=== PATIENT | male | born 1945 | race Caucasian/White ===

== ENCOUNTER 2024-10-16 20:57 | Inpatient (IN) | payer MEDICARE, SELFPAY ==
[2024-10-16] VITALS (9 sets, daily range): BP systolic 116–157; BP diastolic 100–138; PULSE 60–65; RESP 13–23; TEMP 36.9; O2SAT 96–100
--- NOTE | ~2024-10-16 | CT_ITS ---
CT OF right and left lower extremities EXAMINATION: CT LE RT wo con, CT LE LT wo con DATE: 10/16/2024 23:30 (accession [id number]), 10/16/2024 23:31 (accession [id number]) INDICATION: Rule out osteomyelitis. TECHNIQUE: Computed tomography (CT) of the right and left lower extremities was performed without int ravenous contrast. Automated exposure control and iterative reconstruction technique were employed. T he dose-length product was 2718.31 (accession [id number]), 2093.35 (accession [id number]) mGy -cm. COMPARISON: None FINDINGS: Osteopenia. Bilateral sacroiliitis. Bilateral hip osteoarthritis. Scattered pelvic enthesopathy. Mild degenerative changes in the bilateral knees. Moderate degenerative changes in the bilateral ankles, multiple midfoot joints, and the bilateral MTP joints. Plantar and Achilles enthesopathy. Right toes: Skin defect over the right third toe, with apparent exposure of the distal end of the thi rd proximal phalanx, without definite erosion. Left toes: Skin defect over the left second toe, with possible exposure of the distal end of the seco nd proximal phalanx and early erosions suspected on either side of the joint. Left second distal phal anx amputation. Possible exposure of the tip of the left second middle phalanx, without erosion. Skin defect over the PIP joint of the left third toe, with possible bone exposure but no erosion. Possibl e skin defect at the left third DIP joint, with possible bone exposure, and subjacent erosion at the distal aspect of the left third middle phalanx. Atherosclerotic calcifications. Small left and moderate right fat-containing inguinal hernias. Left h ydrocele. Subcutaneous edema extending from the level of mid thigh down to the feet. Dermal thickenin g over the lower leg and dorsal feet. IMPRESSION: Skin defect over the right second toe, with possible bone exposure, without focal erosion. Skin defect over the left second PIP joint, with suggestion of early erosions on either side of the j oint concerning for infection with joint space involvement. Skin defect over the left third DIP joint, with early erosion concerning for infection in the third m iddle phalanx and possible DIP joint involvement. Skin defects with possible exposure of bone at the distal ends of the left second middle phalanx and left third proximal phalanx, without definite erosion. Dermal thickening and subcutaneous edema in the bilateral feet and lower legs, correlate for clinical findings of cellulitis. No definite fluid collection is identified, however this determination is li mited without contrast. Consider MRI of the feet without and with contrast for further evaluation. Reviewed, dictated and finalized at location K. IMPRESSION: Skin defect over the right second toe, with possible bone exposure, without foc al erosion. Skin defect over the left second PIP joint, with suggestion of early erosions o n either side of the joint concerning for infection with joint space involvemen t. Skin defect over the left third DIP joint, with early erosion concerning for in fection in the third middle phalanx and possible DIP joint involvement. Skin defects with possible exposure of bone at the distal ends of the left seco nd middle phalanx and left third proximal phalanx, without definite erosion. Dermal thickening and subcutaneous edema in the bilateral feet and lower legs, correlate for clinical findings of cellulitis. No definite fluid collection is identified, however this determination is limited without contrast. Consider MRI of the feet without and with contrast for further evaluation.
--- NOTE | ~2024-10-16 | US_ITS ---
EXAMINATION: US renal BI DATE: 10/17/2024 17:19 INDICATION: KURTIS TECHNIQUE: Multiple grayscale and Doppler ultrasound images of the kidneys were obtained. COMPARISON: None. FINDINGS: Exam limited by body habitus and bowel shadowing. The right kidney measures 10.8 x 6.1 x 4.9 cm. The left kidney measures 8.8 x 4.8 x 4.1 cm. The kidneys demonstrate normal parenchymal echogenicity. Sev eral right subcentimeter hypoechoic foci likely representing small cysts but too small to characteriz e. 3.0 cm simple left midpole cyst. There is mild right pelviectasis. The bladder is decompressed by a Britton catheter and therefore incompletely evaluated. IMPRESSION: Bilateral cortical scarring. Mild right pelviectasis. Simple left renal cyst. Reviewed, dictated and finalized at location K.
--- NOTE | ~2024-10-16 | US_ITS ---
US arterial ankle brachial ind INDICATION: Weak pedal pulses TECHNIQUE: Segmental pressures and plethysmographic and Doppler waveforms of the brachial and lower e xtremity arteries were obtained. COMPARISON: None. FINDINGS: Right and left brachial artery pressures of 123 mm Hg and 131 mm Hg, respectively, are concordant (no rmal difference <= 30 mmHg). The right ankle-brachial index (LINDSAY) is 1.56 (normal >= 0.9-1.0). The right great toe-brachial index (TBI) is 0.93 (normal >= 0.60). The left LINDSAY is 1.5 to. The left TBI is 0.85. IMPRESSION: 1. Normal ankle-brachial indices. Reviewed, dictated and finalized at location A.
--- NOTE | ~2024-10-16 | XR_ITS ---
EXAMINATION: XR chest 1V portable DATE: 10/18/2024 05:16 INDICATION: Acute renal insufficiency TECHNIQUE: frontal view of the chest was obtained. COMPARISON: Chest radiograph dated 10/16/2024 FINDINGS: Small lung volumes. Slight increase in mild opacities at the left lower lung zone. There is blunting at the costophrenic angle consistent with small left pleural effusion. No pneumothorax or right-sided pleural effusion. Borderline heart size accounting for AP technique single lead cardiac pacemaker wi th lead tip near the apex of the right ventricle. IMPRESSION: 1. Mild but increasing opacities in the left lower lung zone consistent with small left pleural effus ion and worsening atelectasis, pneumonia, asymmetric mild pulmonary edema or some combination thereof . 2. Borderline heart size. Reviewed, dictated and finalized at location A. IMPRESSION: 1. Mild but increasing opacities in the left lower lung zone consistent with sm all left pleural effusion and worsening atelectasis, pneumonia, asymmetric mild pulmonary edema or some combination thereof. 2. Borderline heart size.
--- NOTE | ~2024-10-16 | XR_ITS ---
CHEST RADIOGRAPH CLINICAL HISTORY: sepsis w/u . COMPARISON: 06/16/2012 TECHNIQUE: Single portable view of the chest. FINDINGS The left mid lung is partially obscured due to pacemaker generator. A single wire projects over the right atrium and right ventricle. The remainder of the cardiomediastinal silhouette is enlarged and otherwise unremarkable. Blunting of the left costophrenic sulcus suggesting a small left-sided pleural effusion. The remainder of the lungs are clear IMPRESSION: Small left-sided pleural effusion without focal infiltrate. Reviewed, dictated and finalized at location A.
--- NOTE | 2024-10-16 21:12 | PC.NURSE ---
Patient arrived with no clothes on, soiled in feces, and open wounds to coccyx, and bilateral feet with maggots in wounds. Patient states he lives at home with his daughter, who assists in his care. ERP and engineering project manager notified.
--- OUTSIDE RECORDS SUMMARY | 2024-10-16 22:09 | XMS_ITS ---
Author Organization [facility] Address [address] [place] [address] Care Team Providers Care Welding Inspector Name Role Phone Austen Gleasonjit Unavailable [phone] Encounters Encounter Location Date Provider Diagnosis [facility] [address] [place] [address] 07/10/2024 Arian Gleason Plan Of Treatment Next Appt Details Provider Name:Arian Gleason , 11/06/2024 01:00:00 PM, [address], [facility], Progress Notes * IZAGUIRREALPESHOB:1945 ([age] yo M)Acc No.[id number]:07/10/2024 Progress Notes Patient: TA MERCEDES Provider: Charmaine JENKINS MD, Horace.Waldemar.C.P, F.A.S.N. :1945 A ge:78 Y S ex:Male Date:07/10/2024 Address:[address] [place] [address] Subjective: * Chief Complaints: * * Medical History: Objective: * Vitals: Assessment: Plan: * Treatment: * Billing Information: * Visit Code: * Procedure Codes: * Electronic signature of Annabel Gleason MD on 10/16/2024 at 10:08 PM CDT Sign off status: Pending * Provider: Charmaine JENKINS MD, Horace.Waldemar.C.P, F.A.S.N. Date: 0 07/10/2024 Generated for Printing/Faxing/eTransmitting on: 0 10/16/2024 10:08 PM CDT
--- OUTSIDE RECORDS SUMMARY | 2024-10-16 22:09 | XMS_ITS ---
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 and tophaceous disease (E79.0) Active confirmed Problem Hyperparathyroidism (75400745) Hyperparathyroi dism, unspecified (E21.3) Active confirmed Problem Hypo-osmolality and or hyponatremia (301972032) Hypo-osmolality and hyponatremia (E87.1) Active confirmed Encounters Encounter Location Date Provider Diagnosis [place] [facility] [address] [facility] [address] [place] [address] 08/07/2024 Arian Gleason Chronic kidney disea se, stage 4 (severe) N18.4 ; Essential hypertension I10 ; Type 2 diabetes mellitus with hyperglycemia E11.65 ; Renal osteodystrophy N25.0 ; Secondary hyperparathyroidism, not elsewhere classified E21.1 ; Proteinuria, unspecified R80.9 ; Dyspnea, unspecified R06.00 ; Hypokalemia E87.6 ; Chronic systolic (congestive) heart failure I50.22 ; Vitamin D deficiency, unspecified E55.9 ; Primary generalized (osteo)arthritis M15.0 ; Hyperuricemia without signs of inflammatory arthritis and tophaceous disease E79.0 ; Hyperparathyroidism, unspecified E21.3 and Hypo-osmolality and hyponatremia E87.1 Assessments Encounter Date Diagnosis (ICD Code) Assessment Notes Treatment Notes Treatment Clinical Notes Section Notes 08/07/2024 Chronic kidney disease, stage 4 (severe) (ICD-10 - N18.4) 08/07/2024 Essential hypertension (ICD-10 - I10) 08/07/2024 Type 2 diabetes mellitus with hyperglycemia (ICD-10 - E11.65) 08/07/2024 Renal osteodystrophy (ICD-10 - N25.0) 08/07/2024 Secondary hyperparathyroidism , not elsewhere classified (ICD-10 - E21.1) 08/07/2024 Proteinuria, unspecified (ICD-10 - R80.9) 08/07/2024 Dyspnea, unspecified (ICD-10 - R06.00) 08/07/2024 Hypokalemia (ICD-10 - E87.6) 08/07/2024 Chronic systolic (congestive) heart failure (ICD-10 - I50.22) 08/07/2024 Vitamin D deficiency, unspecified (ICD-10 - E55.9) 08/07/2024 Primary generalized (osteo)arthritis (ICD-10 - M15.0) 08/07/2024 Hyperuricemia without signs of inflammatory arthritis and tophaceous disease (ICD-10 - E79.0) 08/07/2024 Hyperparathyroidism , unspecified (ICD-10 - E21.3) 08/07/2024 Hypo-osmolality and hyponatremia (ICD-10 - E87.1) Plan Of Treatment Next Appt Details Provider Name:Arian Victorino , 11/06/2024 01:00:00 PM, [address], [facility], Progress Notes * AMY TUTTLEOB:1945 ([age] yo M)Acc No.[id number]:08/07/2024 Progress Notes Patient: TA MERCEDES Provider: Charmaine JENKINS MD, F.A.C.P, F.A.S.N. :1945 A ge:78 Y S ex:Male Date:08/07/2024 Address:[address] [address] Subjective: * Chief Complaints: * * Medical History: Objective: * Vitals: Assessment: * Assessment: 1. C hronic kidney disease, stage 4 (severe) - N18.4 (Primary) 2 . E ssential hypertension - I10 3 . T ype 2 diabetes mellitus with hyperglycemia - E11.65? 4. R enal osteodystrophy - N25.0 5 . S econdary hyperparathyroidism, not elsewhere classified - E21.1 6 . P roteinuria, unspecified - R80.9? 7. D yspnea, unspecified - R06.00 8 . H ypokalemia - E87.6? 9. C hronic systolic (congestive) heart failure - I50.22 1 0. Vitamin D deficiency, unspecified - E55.9 1 1. P rimary generalized (osteo)arthritis - M15.0 1 2. H yperuricemia without signs of inflammatory arthritis and tophaceous disease - E79.0 1 3. H yperparathyroidism, unspecified - E21.3 1 4. H ypo-osmolality and hyponatremia - E87.1 Plan: * Treatment: * Billing Information: * Visit Code: 32949 Office Visit, Est Pt., Level 4. * Procedure Codes: * Electronic signature of Annabel Gleason MD on 10/16/2024 at 10:09 PM CDT Sign off status: Pending * Provider: Charmaine JENKINS MD, F.A.C.P, F.A.S.N. Date: 0 08/07/2024 Generated for Printing/Faxing/eTransmitting on: 0 10/16/2024 10:09 PM CDT
--- OUTSIDE RECORDS SUMMARY | 2024-10-16 22:09 | XMS_ITS | Patient Health Record ---
Author Organization [facility] Address [address] [place] [address] Care Team Providers Care Skin Specialist Name Role Phone Arian Gleason Unavailable [phone] Reason For Referral No Information Medications Medication SIG (Take, Route, Frequency, Duration) Notes Start Date End Date Status Calcitriol 0.25 MCG 1 capsule Orally Thr ee times a day; Duration: 90 days 08/07/2024 08/02/2025 Active Sodium Bicarbonate 650 MG Take 2 tablets by mouth twice daily; Duration: 90 Active Lokelma 10 GM 1 packet dissolved i n water Orally Once a day; Duration: 30 day(s) 01/17/2024 Active rOPINIRole HCl 1 MG TAKE 1 TABLET BY SAIGE TH AT BEDTIME; Duration: 30 Active Calcitriol 0.25 MCG 1 capsule Orally Thr ee times a day; Duration: 90 days Active Lasix 40 MG 1 tablet Orally twic e a day; Duration: 90 day(s) 05/09/2022 Active Calcitriol 0.25 MCG 1 capsule Orally Onc e a day; Duration: 90 day(s) 05/01/2024 01/26/2025 Active Lasix 20 MG 1 tablet Orally Once a day; Duration: 90 day(s) 05/01/2024 01/26/2025 Active Allopurinol 100 MG 1 tablet Orally 3 ti mes a day; Duration: 90 days 09/11/2024 09/06/2025 Active Furosemide 40 MG Take 1 tablet by saige th once daily; Duration: 90 Active Allopurinol 200 MG 1 tablet Orally Once a day; Duration: 90 days 08/07/2024 08/02/2025 Active Ergocalciferol 1.25 MG (86690 UT) 1 capsule Orally Once a week; Duration: 30 days 08/07/2024 12/05/2024 Active Problems Problem Type SNOMED Code ICD Code Onset Dates Problem Status W/U Status Risk Notes Problem Hyperglycemia due to type 2 diabetes mellitus (668003058420234) Type 2 diabetes mellitus with hyperglycemia (E11.65) Active confirmed Problem Secondary hyperparathyroidism (08052405) Secondary hyperparathyroid ism, not elsewhere classified (E21.1) Active confirmed Problem Hyperparathyroidism (87669676) Hyperparathyroid ism, unspecified (E21.3) Active confirmed Problem Vitamin D deficiency (15207916) Vitamin D deficiency, unspecified (E55.9) Active confirmed Problem Hyperuricemia withou t signs of inflammatory arthritis and tophaceous disease (790715158) Hyperuricemia without signs of inflammatory arthritis and tophaceous disease (E79.0) Active confirmed Problem Hypo-osmolality and or hyponatremia (532934380) Hypo-osmolality and hyponatremia (E87.1) Active confirmed Problem Hypokalemia (84695058) Hypokalemia (E87.6) Active confirmed Problem Chronic systolic heart failure (256275068) Chronic systolic (congestive) heart failure (I50.22) Active confirmed Problem Primary generalised osteoarthritis (244702281) Primary generalized (osteo)arthritis (M15.0) Active confirmed Problem Chronic kidney disease stage 4 (923550428) Chronic kidney disease, stage 4 (severe) (N18.4) Active confirmed Problem Renal osteodystrophy (38643951) Renal osteodystrophy (N25.0) Active confirmed Problem Dyspnea (448565127) Dyspnea, unspecified (R06.00) Active confirmed Problem Proteinuria (47943876) Proteinuria, unspecified (R80.9) Active confirmed Problem Essential hypertension (69764554) Essential hypertension (I10) Active confirmed Encounters Encounter Location Date Provider Diagnosis [facility] 2043 [facility] [address] [place] [address] 10/25/2023 Arian Gleason Chronic kidney disease, stage 4 (severe) N18.4 ; Renal osteodystrophy N25.0 ; Proteinuria, unspecified R80.9 ; Essential hypertension I10 ; Type 2 diabetes mellitus with hyperglycemia E11.65 and Secondary hyperparathyroidism, not elsewhere classified E21.1 [facility] 2043 [facility] [address] [place] [address] 01/17/2024 Arian Gleason Essential hypertensi on I10 ; Chronic kidney disease, stage 4 (severe) N18.4 ; Type 2 diabetes mellitus with hyperglycemia E11.65 ; Secondary hyperparathyroidism, not elsewhere classified E21.1 ; Renal osteodystrophy N25.0 ; Proteinuria, unspecified R80.9 and Chronic kidney disease, stage 3a N18.31 [facility] [address] [facility] [address] [place] [address] 02/21/2024 Arian Gleason Essential hypertensi on I10 ; Chronic kidney disease, stage 4 (severe) N18.4 ; Type 2 diabetes mellitus with hyperglycemia E11.65 ; Renal osteodystrophy N25.0 ; Secondary hyperparathyroidism, not elsewhere classified E21.1 and Proteinuria, unspecified R80.9 [facility] [address] [place] [address] 03/27/2024 Arian Gleason Chronic kidney disease, stage 4 (severe) N18.4 ; Dyspnea, unspecified R06.00 ; Renal osteodystrophy N25.0 ; Type 2 diabetes mellitus with hyperglycemia E11.65 and Hypokalemia E87.6 [facility] [address] [place] [address] 05/01/2024 Arian Gleason [facility] [address] [place] [address] 06/05/2024 Arian Gleason Chronic kidney disease, stage 4 (severe) N18.4 ; Essential hypertension I10 ; Type 2 diabetes mellitus with hyperglycemia E11.65 ; Renal osteodystrophy N25.0 ; Secondary hyperparathyroidism, not elsewhere classified E21.1 ; Proteinuria, unspecified R80.9 ; Dyspnea, unspecified R06.00 ; Hypokalemia E87.6 ; Chronic systolic (congestive) heart failure I50.22 ; Vitamin D deficiency, unspecified E55.9 and Primary generalized (osteo)arthritis M15.0 [facility] [address] [place] [address] 08/07/2024 Arian Gleason Chronic kidney disease, stage 4 (severe) N18.4 ; Essential hypertension [...] unspecified E21.3 and Hypo-osmolality and hyponatremia E87.1 [facility] [address] [address] 09/11/2024 rAian Gleason Chronic kidney disease, stage 4 (severe) N18.4 ; Essential hypertension [...] unspecified E21.3 and Hypo-osmolality and hyponatremia E87.1 [facility] [address] [place] [address] 03/09/2024 Arian Gleason [facility] [address] [address] 05/01/2024 Arian Gleason [facility] [address] [address] 07/14/2024 Arian Gleason [facility] [address] [address] 08/07/2024 Arian Gleason [facility] [address] [address] 09/11/2024 Arian Gleason [facility] [address] [facility] [address] [place] [address] 01/17/2024 Arian Gleason [facility] [address] [address] 01/20/2024 Arian Gleason Assessments Encounter Date Diagnosis (ICD Code) Assessment Notes Treatment Notes Treatment Clinical Notes Section Notes 08/07/2024 Chronic kidney disease, stage 4 (severe) (ICD-10 - N18.4) 06/05/2024 Chronic kidney disease, stage 4 (severe) (ICD-10 - N18.4) 10/25/2023 Chronic kidney disease, stage 4 (severe) (ICD-10 - N18.4) 09/11/2024 Chronic kidney disease, stage 4 (severe) (ICD-10 - N18.4) 03/27/2024 Chronic kidney disease, stage 4 (severe) (ICD-10 - N18.4) 01/17/2024 Chronic kidney disease, stage 4 (severe) (ICD-10 - N18.4) 01/17/2024 Essential hypertension (ICD-10 - I10) 02/21/2024 Essential hypertension (ICD-10 - I10) 02/21/2024 Chronic kidney disease, stage 4 (severe) (ICD-10 - N18.4) 03/27/2024 Dyspnea, unspecified (ICD-10 - R06.00) 01/17/2024 Type 2 diabetes mellitus with hyperglycemia (ICD-10 - E11.65) 09/11/2024 Essential hypertension (ICD-10 - I10) 10/25/2023 Renal osteodystrophy (ICD-10 - N25.0) 06/05/2024 Essential hypertension (ICD-10 - I10) 08/07/2024 Essential hypertension (ICD-10 - I10) 08/07/2024 Type 2 diabetes mellitus with hyperglycemia (ICD-10 - E11.65) 06/05/2024 Type 2 diabetes mellitus with hyperglycemia (ICD-10 - E11.65) 10/25/2023 Proteinuria, unspecified (ICD-10 - R80.9) 09/11/2024 Type 2 diabetes mellitus with hyperglycemia (ICD-10 - E11.65) 03/27/2024 Renal osteodystrophy (ICD-10 - N25.0) 01/17/2024 Secondary hyperparathyroidism , not elsewhere classified (ICD-10 - E21.1) 02/21/2024 Type 2 diabetes mellitus with hyperglycemia (ICD-10 - E11.65) 02/21/2024 Renal osteodystrophy (ICD-10 - N25.0) 01/17/2024 Renal osteodystrophy (ICD-10 - N25.0) 03/27/2024 Type 2 diabetes mellitus with hyperglycemia (ICD-10 - E11.65) 09/11/2024 Renal osteodystrophy (ICD-10 - N25.0) 10/25/2023 Essential hypertension (ICD-10 - I10) 06/05/2024 Renal osteodystrophy (ICD-10 - N25.0) 08/07/2024 Renal osteodystrophy (ICD-10 - N25.0) 08/07/2024 Secondary hyperparathyroidism , not elsewhere classified (ICD-10 - E21.1) 06/05/2024 Secondary hyperparathyroidism , not elsewhere classified (ICD-10 - E21.1) 10/25/2023 Type 2 diabetes mellitus with hyperglycemia (ICD-10 - E11.65) 09/11/2024 Secondary hyperparathyroidism , not elsewhere classified (ICD-10 - E21.1) 03/27/2024 Hypokalemia (ICD-10 - E87.6) 01/17/2024 Proteinuria, unspecified (ICD-10 - R80.9) 02/21/2024 Secondary hyperparathyroidism , not elsewhere classified (ICD-10 - E21.1) 09/11/2024 Proteinuria, unspecified (ICD-10 - R80.9) 02/21/2024 Proteinuria, unspecified (ICD-10 - R80.9) 01/17/2024 Chronic kidney disease, stage 3a (ICD-10 - N18.31) 06/05/2024 Proteinuria, unspecified (ICD-10 - R80.9) 10/25/2023 Secondary hyperparathyroidism , not elsewhere classified (ICD-10 - E21.1) 08/07/2024 Proteinuria, unspecified (ICD-10 - R80.9) 08/07/2024 Dyspnea, unspecified (ICD-10 - R06.00) 06/05/2024 Dyspnea, unspecified (ICD-10 - R06.00) 09/11/2024 Dyspnea, unspecified (ICD-10 - R06.00) 09/11/2024 Hypokalemia (ICD-10 - E87.6) 06/05/2024 Hypokalemia (ICD-10 - E87.6) 08/07/2024 Hypokalemia (ICD-10 - E87.6) 08/07/2024 Chronic systolic (congestive) heart failure (ICD-10 - I50.22) 06/05/2024 Chronic systolic (congestive) heart failure (ICD-10 - I50.22) 09/11/2024 Chronic systolic (congestive) heart failure (ICD-10 - I50.22) 09/11/2024 Vitamin D deficiency, unspecified (ICD-10 - E55.9) 06/05/2024 Vitamin D deficiency, unspecified (ICD-10 - E55.9) 08/07/2024 Vitamin D deficiency, unspecified (ICD-10 - E55.9) 08/07/2024 Primary generalized (osteo)arthritis (ICD-10 - M15.0) 06/05/2024 Primary generalized (osteo)arthritis (ICD-10 - M15.0) 09/11/2024 Primary generalized (osteo)arthritis (ICD-10 - M15.0) 09/11/2024 Hyperuricemia without signs of inflammatory arthritis and tophaceous disease (ICD-10 - E79.0) 08/07/2024 Hyperuricemia without signs of inflammatory arthritis and tophaceous disease (ICD-10 - E79.0) 08/07/2024 Hyperparathyroidism , unspecified (ICD-10 - E21.3) 09/11/2024 Hyperparathyroidism , unspecified (ICD-10 - E21.3) 09/11/2024 Hypo-osmolality and hyponatremia (ICD-10 - E87.1) 08/07/2024 Hypo-osmolality and hyponatremia (ICD-10 - E87.1) Plan Of Treatment Next Appt Details Provider Name:Arian Gleason , 11/06/2024 01:00:00 PM, 2043 [facility], [facility] [address], [address],
--- OUTSIDE RECORDS SUMMARY | 2024-10-16 22:09 | XMS_ITS ---
Author Organization [facility] Address [address] [place] [address] Care Team Providers Care Automobile Drivers Name Role Phone Victorino Arian Unavailable [phone] Encounters Encounter Location Date Provider Diagnosis [place] [facility] 2043 [facility] [address] [place] [address] 09/11/2024 Arian Gleason Chronic kidney disea se, stage [...] Treatment Notes Treatment Clinical Notes Section Notes 09/11/2024 Chronic kidney disease, stage 4 (severe) (ICD-10 - N18.4) 09/11/2024 Essential hypertension (ICD-10 - I10) 09/11/2024 Type 2 diabetes mellitus with hyperglycemia (ICD-10 - E11.65) 09/11/2024 Renal osteodystrophy (ICD-10 - N25.0) 09/11/2024 Secondary hyperparathyroidism , not elsewhere classified (ICD-10 - E21.1) 09/11/2024 Proteinuria, unspecified (ICD-10 - R80.9) 09/11/2024 Dyspnea, unspecified (ICD-10 - R06.00) 09/11/2024 Hypokalemia (ICD-10 - E87.6) 09/11/2024 Chronic systolic (congestive) heart failure (ICD-10 - I50.22) 09/11/2024 Vitamin D deficiency, unspecified (ICD-10 - E55.9) 09/11/2024 Primary generalized (osteo)arthritis (ICD-10 - M15.0) 09/11/2024 Hyperuricemia without signs of inflammatory arthritis and tophaceous disease (ICD-10 - E79.0) 09/11/2024 Hyperparathyroidism , unspecified (ICD-10 - E21.3) 09/11/2024 Hypo-osmolality and hyponatremia (ICD-10 - E87.1) Plan Of Treatment Next Appt Details Provider Name:Arian Gleason , 11/06/2024 01:00:00 PM, 2043 [facility], [facility] [address], [place], [facility], Progress Notes * AMY TUTTLEOB:1945 ([age] yo M)Acc No.[id number]:09/11/2024 Progress Notes Patient: TA MERCEDES Provider: Charmaine JENKINS MD, F.A.C.P, F.A.S.N. :1945 A ge:78 Y S ex:Male Date:09/11/2024 Address:[address] [place] [address] Subjective: * Chief Complaints: * * Medical [...] Treatment: * Billing Information: * Visit Code: 04883 Office Visit, Est Pt., Level 4. * Procedure Codes: * Electronic signature of Annabel Gleason MD on 10/16/2024 at 10:09 PM CDT Sign off status: Pending * Provider: Charmaine JENKINS MD, F.A.C.P, F.A.S.N. Date: 0 09/11/2024 Generated for Printing/Faxing/eTransmitting on: 0 10/16/2024 10:09 PM CDT
[2024-10-16 22:15] LABS: Alanine Aminotransferase 38 U/L (6-50); Albumin Level 3.3 g/dL (3.5-5.1); Alkaline Phosphatase 101 U/L (38-126); Anion Gap 13 mmol/L (4-12); Aspartate Amino Transferase 37 U/L (17-59); Bilirubin,Total 0.3 mg/dL (0.2-1.3); Blood Urea Nitrogen 75 mg/dL (9-20); CRP 3.5 mg/dL (<1.0); Calcium 9.3 mg/dL (8.4-10.2); Carbon Dioxide 15 mmol/L (22-30); Chloride 108 mmol/L (98-107); Creatine Kinase 235 U/L (55-170); Estimated CRCL calculation 13 ml/min; Estimated Glomerular Filt Rate 10; Glucose 127 mg/dL (65-110); INR 1.1; Potassium 5.9 mmol/L (3.4-5.0); Prothrombin Time 14.7 Seconds (11.1-14.7); Sodium 136 mmol/L (137-145); Total Protein 7.1 g/dL (6.3-8.2)
[2024-10-16 22:16] LABS: Partial Thromboplastin Time 29.1 Seconds (22.3-36.8)
--- NOTE | 2024-10-16 22:28 | ECG_ITS ---
Test Date: 2024-10-16 22:36:52 Measurements Intervals [place] Rate: 60 P: 0 WA: 0 QRS: 269 QRSD: 154 T: 66 QT: 424 QTc: 424 Interpretive Statements ELECTRONIC VENTRICULAR PACEMAKER BASELINE ARTIFACT- I, II, III, AVR, AVL, AVF, V1-V6 NO FURTHER INTERPRETATION IS POSSIBLE ATYPICAL ECG No previous ECG available for comparison Electronically Signed On 10-17-2024 07:32:39 CDT by Live Arnold D.O.
--- NOTE | 2024-10-16 22:42 | ED.WEAKNESS ---
HPI - Weakness General Chief complaint: Weakness <Nancy Hoang PA-C - Last Filed: 10/17/24 15:51> Stated complaint: GENERALIZED WEAKNESS, NECROTIC FEET WITH MAGGOTS. <Nancy Hoang PA-C - Last Filed: 10/17/24 15:51> Source: patient <Nancy Hoang PA-C - Last Filed: 10/17/24 15:51> Mode of arrival: EMS <Nancy Hoang PA-C - Last Filed: 10/17/24 15:51> Limitations: no limitations <Nancy Hoang PA-C - Last Filed: 10/17/24 15:51> History of Present Illness HPI Narrative: Patient is a 78-year-old male who presents the ED via EMS with report of weakness and wounds to feet. Patient lives at home with his and daughter, who he reports is his primary ep technologist. Patient reports he has had wounds to his bilateral feet/toes for the past 1 month. States he has been putting bandages over them. Tonight, patient reports he fell off of the toilet. Had difficulty getting up off the ground. States he laid there for approximately 10 minutes before EMS was contacted. Denies hitting his head. Denies injuring himself in the fall. Patient denies history of diabetes. States he last saw a doctor 1 month ago. Reports history of Parkinson's, but is not on medication for this. Is not on any blood thinners. Patient's wounds to feet were noted to have live maggots. <Nancy Hoang PA-C - Last Filed: 10/17/24 15:51> Related Data Home medications: Home Medications ?Medication ?Instructions ?Recorded ?Confirmed ?Last Taken ?Type allopurinol 100 mg tablet 100 mg PO Q8H 10/17/24 10/17/24 10/16/24 History calcitriol 0.25 mcg capsule 0.25 mcg PO TID 10/17/24 10/17/24 Unknown History ergocalciferol (vitamin D2) 1,250 1,250 mcg PO WEEKLY 10/17/24 10/17/24 Unknown History mcg (50,000 unit) capsule furosemide 20 mg tablet 20 mg PO DAILY 10/17/24 10/17/24 Unknown History gabapentin 300 mg capsule 300 mg PO Q12H 10/17/24 10/17/24 Unknown History lisinopril 20 mg tablet 20 mg PO Q12H 10/17/24 10/17/24 Unknown History metoprolol tartrate 50 mg tablet 50 mg PO Q12H 10/17/24 10/17/24 Unknown History nifedipine 60 mg tablet,extended 60 mg PO DAILY 10/17/24 10/17/24 Unknown History release ropinirole 1 mg tablet 1 mg PO HS 10/17/24 10/17/24 Unknown History sevelamer carbonate 800 mg tablet 800 mg PO TIDWM 10/17/24 10/17/24 Unknown History sodium bicarbonate 650 mg tablet 1,300 mg PO BID 10/17/24 10/17/24 Unknown History tamsulosin 0.4 mg capsule 0.4 mg PO Q24H 10/17/24 10/17/24 Unknown History <Nancy Hoang PA-C - Last Filed: 10/17/24 15:51> Allergies/Adverse reactions: Allergies Allergy/AdvReac Type Severity Reaction Status Date / Time No Known Allergies Allergy Unknown Unverified 09/13/06 06:57 <Nancy Hoang PA-C - Last Filed: 10/17/24 15:51> Review of Systems Review of Systems: All systems reviewed & are unremarkable except as noted in HPI. <Nnacy Hoang PA-C - Last Filed: 10/17/24 15:51> All systems reviewed & are unremarkable except as noted in HPI and below <Nancy Hoang PA-C - Last Filed: 10/17/24 15:51> FORMERLY [facility] Past Medical History Medical History: Medical History (Updated 10/17/24 @ 15:11 by Mauricio Hunt MD) Pacemaker Proteinuria DJD (degenerative joint disease) CHF exacerbation Vitamin D deficiency Hyperuricemia Hypertension Hyperphosphatemia BPH (benign prostatic hyperplasia) Chronic kidney disease Chronic anemia Metabolic acidosis <JESSY Mcallister Last Filed: 10/17/24 15:51> Surgical History Surgical History: Surgical History (Updated 10/17/24 @ 15:11 by Mauricio Hunt MD) Status post placement of cardiac pacemaker <Nancy Hoang PA-C - Last Filed: 10/17/24 15:51> Family History Family History: Family History (Updated 10/17/24 @ 06:34 by Sharri Murphy RN) Other Parents <Nancy Hoang PA-C - Last Filed: 10/17/24 15:51> Social History Social History: Social History Smoking status: Former smoker Tobacco type: cigarettes Alcohol intake: former Substance use: never Substance use type: does not use Lack of Transportation: No Lack of Food: Never True Current Housing: I Have Housing Concerned About Future Housing: No Difficulty Paying Gas/Electric Bills: No Difficulty Paying for Meds: No Currently Unemployed: No Education: Bachelor's Degree Difficulty w/ Childcare or Family Care: No Spiritual care concerns: No <Nancy Hoang PA-C - Last Filed: 10/17/24 15:51> Exam Narrative: GENERAL: Chronically ill-appearing, obese with BMI of 35.4, non-toxic, in no acute distress. HEAD: Normocephalic, atraumatic. RESPIRATORY: Airway patent, respirations nonlabored. Clear to auscultation bilaterally, no rales, rhonchi, wheezing. CARDIOVASCULAR: Regular rate and rhythm without murmurs, rubs, or gallops. Pedal pulses are intact and easily palpable. MUSCULOSKELETAL: Moves all extremities. Diffuse erythema, for macerated superficial skin tissues through lower extremities into dorsal feet bilaterally. Diffuse scaling skin scattered throughout lower extremities. There are numerous macerated wounds/tissue to toes bilaterally, particularly 2nd and 3rd toes bilaterally. There is erosion of dorsal/extensor surface of toes, particularly over 2nd and 3rd toes bilaterally with possible bone exposure beneath erosion. Purulent drainage present. Diffuse erythema throughout toes. No significant bleeding. Sensation is intact. Possible tinea changes between web spaces. Live maggots noted in webspaces of all of toes on left foot. SKIN: Warm, dry, normal color. NEURO: A&O X3. Speech clear. Cranial nerves II-XII grossly intact. No ataxic movements. No appreciable focal deficits PSYCHIATRIC: Appropriate mood and affect. Normal interaction. <Nancy Hoang PA-C - Last Filed: 10/17/24 15:51> Course CHOREOGRAPHY DIRECTOR/PA Physician Supervision I agree with midlevel documentation; I performed the medical decision making component of this evaluation. <Karyn Stevens MD - Last Filed: 10/17/24 06:55> Vital Signs Vital signs: Vital Signs Temperature 98.4 F 10/16/24 20:52 Pulse Rate 60 10/16/24 20:52 Respiratory Rate 20 10/16/24 20:52 Blood Pressure 116/100 H 10/16/24 20:52 Pulse Oximetry 96 10/16/24 20:52 Oxygen Delivery Room Air 10/16/24 20:52 Temperature 97.9 F 10/17/24 13:46 Pulse Rate 60 10/17/24 13:46 Respiratory Rate 18 10/17/24 13:46 Blood Pressure 114/52 L 10/17/24 13:46 Pulse Oximetry 95 10/17/24 13:46 Oxygen Delivery Room Air 10/17/24 08:10 <Nancy Hoang PA-C - Last Filed: 10/17/24 15:51> Vital Signs Temperature 98.4 F 10/16/24 20:52 Pulse Rate 60 10/16/24 20:52 Respiratory Rate 20 10/16/24 20:52 Blood Pressure 116/100 H 10/16/24 20:52 Pulse Oximetry 96 10/16/24 20:52 Oxygen Delivery Room Air 10/16/24 20:52 Temperature 97.9 F 10/17/24 13:46 Pulse Rate 60 10/17/24 13:46 Respiratory Rate 18 10/17/24 13:46 Blood Pressure 114/52 L 10/17/24 13:46 Pulse Oximetry 95 10/17/24 13:46 Oxygen Delivery Room Air 10/17/24 08:10 <Karyn Stevens MD - Last Filed: 10/17/24 06:55> Procedures EJ/Peripheral Line Arm R: EJ/Peripheral Line Date: 10/17/24 <Karyn Stevens MD - Last Filed: 10/17/24 06:55> Skin Cleansed in Sterile Fashion: Yes <Karyn Stevens MD - Last Filed: 10/17/24 06:55> Ultrasound Guided: Yes <Karyn Stevens MD - Last Filed: 10/17/24 06:55> Size (gauge): 20 <Karyn Stevens MD - Last Filed: 10/17/24 06:55> IV Secured and Dressing Applied: Yes <Karyn Stevens MD - Last Filed: 10/17/24 06:55> Patient Tolerated Procedure: well and no complications <Karyn Stevens MD - Last Filed: 10/17/24 06:55> MDM - Weakness MDM Narrative Medical decision making narrative: Patient presented to ED with weakness, difficulty getting up off of the ground from a fall, with wounds to bilateral feet. Live maggots noted to webspaces of left foot. Patient reports wounds have been present for the past 1 month. Vital signs are stable upon arrival. Patient is afebrile here. Wounds were thoroughly irrigated and bandaged. CBC with white blood cell count of 15.4. Hemoglobin 8.8. No recent records to compare to. [facility] with evidence of acute renal failure. Creatinine 5.61. BUN 75. Potassium 5.9. Chloride 108. Bicarb 15. Anion gap of 13. Again no records to compare to. Lactic acid within normal range at 1.9. Inflammatory markers are notably elevated. CK 235. Fluids are ongoing. Patient was bladder scan only noted to have approximately 15 mL of urine in his bladder. Will check again after fluids. Patient does admit he has had difficulty/decreased urination over the past few weeks. He states he was told he had problems with his kidneys in the past, but unclear when this was or what his baseline kidney function is. CT scans of bilateral lower extremities were obtained. Does show numerous areas of erosions, concern for bone exposure, skin defects. Particularly right 2nd toe, left 2nd and 3rd toes. Shows dermal thickening and subcu edema to bilateral feet and lower legs, concerning for cellulitis. No definite fluid collection or erosion. Blood cultures obtained. Patient started on Flagyl, vanc, cefepime for concern for osteomyelitis. Pharmacy to renally adjust. Patient denies previous history of diabetes. Blood sugar on CMP is 127. Hemoglobin A1c 5.1%. He is otherwise neurovascularly intact. Has good peripheral pulses. EKG does show evidence of peaked T-waves. No concerning ST changes. Patient does have a pacemaker. Patient was given hyper K treatment including calcium gluconate, dextrose, insulin, Lokelma. Discussed case with Dr. Zarate, general surgery, will consult. Will consult nephrology regarding acute renal failure. Wound care and care coordination also consulted. Repeat BMP after hyperkalemia treatment does show improvement. Potassium at 4.2. Bicarb 10. Anion gap closed. Creatinine down to 3.79. Patient was able to make a small amount of urine. Urine does appear infectious. Sent for culture. Will be covered by antibiotics already being given. Discussed case with Dr. Kelly, hospitalist, accepted patient for admission. Med tele. <Nancy Hoang PA-C - Last Filed: 10/17/24 15:51> Medical Records Attestation: I reviewed the patient's medical records. <Nancy Hoang PA-C - Last Filed: 10/17/24 15:51> Lab Data Attestation: I reviewed the patient's lab results. <Nancy Hoang PA-C - Last Filed: 10/17/24 15:51> Result diagrams: 10/17/24 07:20 10/17/24 07:20 <JESSY Mcallister Last Filed: 10/17/24 15:51> Labs: Lab Results 10/16/24 10/16/24 10/16/24 Range/Units 21:34 22:48 22:49 WBC 15.4 H (4.5-10.0) K/mm3 RBC 2.79 L (4.6-6.20) M/mm3 Hgb 8.8 L (14.0-18.0) g/dL Hct 29.5 L (42.0-52.0) % MCV 105.7 H (80-100) fl MCH 31.5 (26-34) pg MCHC 29.8 L (32-36) g/dl RDW 12.8 (11.5-14.5) % Plt Count 336 (150-375) k/mm3 MPV 10.6 H (7.4-10.4) fl Immature Gran % (Auto) 3.1 H (0-0.5) % Neut % (Auto) 80.7 H (45.5-73.1) % Lymph % (Auto) 8.3 L (18.3-44.2) % Webster % (Auto) 7.2 (2.6-8.5) % Eos % (Auto) 0.2 (0-4.4) % Baso % (Auto) 0.5 (0.2-1.2) % Lymph # (Auto) 1.28 (0.9-3.2) K/mm3 Webster # (Auto) 1.1 H (0.1-0.6) K/mm3 Eos # (Auto) 0.0 (0-0.3) K/mm3 Baso # (Auto) 0.1 (0.0-0.1) K/mm3 Abs Immat Gran (auto) 0.48 H (0.00-0.031) K/mm3 Absolute Neuts (auto) 12.4 H (1.3-6.7) K/mm3 Absolute Nucleated RBC 0.000 (0.0-0.012) K/mm3 Band Neutrophils % 0 (0-6) % Nucleated RBC % 0.0 (0.0-0.2) % Platelet Estimate Increased (Adequate) Hypochromasia 1+ Anisocytosis 1+ Ovalocytes 1+ Schistocytes None seen ESR > 140 H (0-20) mm/hr PT 14.7 (11.1-14.7) Seconds INR 1.1 APTT 29.1 (22.3-36.8) Seconds Sodium 136 L (137-145) mmol/L Potassium 5.9 H (3.4-5.0) mmol/L Chloride 108 H (98-107) mmol/L Carbon Dioxide 15 L (22-30) mmol/L Anion Gap 13 H (4-12) mmol/L BUN 75 H (9-20) mg/dL Creatinine 5.61 H (0.7-1.3) mg/dL Estim Creat Clear Calc 13 ml/min Estimated GFR 10 L (59 - ) Glucose 127 H (65-110) mg/dL POC Capillary Glucose (65-105) mg/dl Hemoglobin A1c 5.1 (<5.7) % Lactic Acid 1.9 (0.7-2.0) mmol/L Calcium 9.3 (8.4-10.2) mg/dL Total Bilirubin 0.3 (0.2-1.3) mg/dL AST 37 (17-59) U/L ALT 38 (6-50) U/L Alkaline Phosphatase 101 (38-126) U/L Total Creatine Kinase 235 H (55-170) U/L C-Reactive Protein 3.5 H (<1.0) mg/dL Total Protein 7.1 (6.3-8.2) g/dL Albumin 3.3 L (3.5-5.1) g/dL Urine Color (Yellow) Urine Appearance (Clear) Urine pH (5.0-9.0) Ur Specific Malone (1.001-1.035) Urine Protein (Negative) mg/dL Urine Glucose (UA) (Negative) mg/dL Urine Ketones (Negative) mg/dL Ur Blood (Man) (Negative) Urine Nitrate (Negative) Urine Bilirubin (Negative) Urine Urobilinogen (<2.0) mg/dL Leukocyte Esterase Rfl (Negative) DIANA/UL Urine RBC (0-2) /hpf Urine WBC (0-3) /hpf Ur Squamous Epith Cells (Few) /hpf Urine Bacteria /hpf Urine Casts Ethyl Alcohol < 10 (<10) mg/dL 10/17/24 10/17/24 10/17/24 Range/Units 00:54 01:46 01:50 WBC (4.5-10.0) K/mm3 RBC (4.6-6.20) M/mm3 Hgb (14.0-18.0) g/dL Hct (42.0-52.0) % MCV (80-100) fl MCH (26-34) pg MCHC (32-36) g/dl RDW (11.5-14.5) % Plt Count (150-375) k/mm3 MPV (7.4-10.4) fl Immature Gran % (Auto) (0-0.5) % Neut % (Auto) (45.5-73.1) % Lymph % (Auto) (18.3-44.2) % Webster % (Auto) (2.6-8.5) % Eos % (Auto) (0-4.4) % Baso % (Auto) (0.2-1.2) % Lymph # (Auto) (0.9-3.2) K/mm3 Webster # (Auto) (0.1-0.6) K/mm3 Eos # (Auto) (0-0.3) K/mm3 Baso # (Auto) (0.0-0.1) K/mm3 Abs Immat Gran (auto) (0.00-0.031) K/mm3 Absolute Neuts (auto) (1.3-6.7) K/mm3 Absolute Nucleated RBC (0.0-0.012) K/mm3 Band Neutrophils % (0-6) % Nucleated RBC % (0.0-0.2) % Platelet Estimate (Adequate) Hypochromasia Anisocytosis Ovalocytes Schistocytes ESR (0-20) mm/hr PT (11.1-14.7) Seconds INR APTT (22.3-36.8) Seconds Sodium 139 (137-145) mmol/L Potassium 4.2 (3.4-5.0) mmol/L Chloride 120 H (98-107) mmol/L Carbon Dioxide 10 L (22-30) mmol/L Anion Gap 9 (4-12) mmol/L BUN 57 H D (9-20) mg/dL Creatinine 3.79 H (0.7-1.3) mg/dL Estim Creat Clear Calc 19 ml/min Estimated GFR 16 L (59 - ) Glucose 69 (65-110) mg/dL POC Capillary Glucose 44 L* 89 (65-105) mg/dl Hemoglobin A1c (<5.7) % Lactic Acid (0.7-2.0) mmol/L Calcium 6.6 L (8.4-10.2) mg/dL Total Bilirubin (0.2-1.3) mg/dL AST (17-59) U/L ALT (6-50) U/L Alkaline Phosphatase (38-126) U/L Total Creatine Kinase (55-170) U/L C-Reactive Protein (<1.0) mg/dL Total Protein (6.3-8.2) g/dL Albumin (3.5-5.1) g/dL Urine Color (Yellow) Urine Appearance (Clear) Urine pH (5.0-9.0) Ur Specific Malone (1.001-1.035) Urine Protein (Negative) mg/dL Urine Glucose (UA) (Negative) mg/dL Urine Ketones (Negative) mg/dL Ur Blood (Man) (Negative) Urine Nitrate (Negative) Urine Bilirubin (Negative) Urine Urobilinogen (<2.0) mg/dL Leukocyte Esterase Rfl (Negative) DIANA/UL Urine RBC (0-2) /hpf Urine WBC (0-3) /hpf Ur Squamous Epith Cells (Few) /hpf Urine Bacteria /hpf Urine Casts Ethyl Alcohol (<10) mg/dL 10/17/24 10/17/24 Range/Units 03:30 03:43 WBC (4.5-10.0) K/mm3 RBC (4.6-6.20) M/mm3 Hgb (14.0-18.0) g/dL Hct (42.0-52.0) % MCV (80-100) fl MCH (26-34) pg MCHC (32-36) g/dl RDW (11.5-14.5) % Plt Count (150-375) k/mm3 MPV (7.4-10.4) fl Immature Gran % (Auto) (0-0.5) % Neut % (Auto) (45.5-73.1) % Lymph % (Auto) (18.3-44.2) % Webster % (Auto) (2.6-8.5) % Eos % (Auto) (0-4.4) % Baso % (Auto) (0.2-1.2) % Lymph # (Auto) (0.9-3.2) K/mm3 Webster # (Auto) (0.1-0.6) K/mm3 Eos # (Auto) (0-0.3) K/mm3 Baso # (Auto) (0.0-0.1) K/mm3 Abs Immat Gran (auto) (0.00-0.031) K/mm3 Absolute Neuts (auto) (1.3-6.7) K/mm3 Absolute Nucleated RBC (0.0-0.012) K/mm3 Band Neutrophils % (0-6) % Nucleated RBC % (0.0-0.2) % Platelet Estimate (Adequate) Hypochromasia Anisocytosis Ovalocytes Schistocytes ESR (0-20) mm/hr PT (11.1-14.7) Seconds INR APTT (22.3-36.8) Seconds Sodium (137-145) mmol/L Potassium (3.4-5.0) mmol/L Chloride (98-107) mmol/L Carbon Dioxide (22-30) mmol/L Anion Gap (4-12) mmol/L BUN (9-20) mg/dL Creatinine (0.7-1.3) mg/dL Estim Creat Clear Calc ml/min Estimated GFR (59 - ) Glucose (65-110) mg/dL POC Capillary Glucose 143 H (65-105) mg/dl Hemoglobin A1c (<5.7) % Lactic Acid (0.7-2.0) mmol/L Calcium (8.4-10.2) mg/dL Total Bilirubin (0.2-1.3) mg/dL AST (17-59) U/L ALT (6-50) U/L Alkaline Phosphatase (38-126) U/L Total Creatine Kinase (55-170) U/L C-Reactive Protein (<1.0) mg/dL Total Protein (6.3-8.2) g/dL Albumin (3.5-5.1) g/dL Urine Color Yellow (Yellow) Urine Appearance Cloudy H (Clear) Urine pH 5.0 (5.0-9.0) Ur Specific Malone 1.015 (1.001-1.035) Urine Protein 2+ H (Negative) mg/dL Urine Glucose (UA) Negative (Negative) mg/dL Urine Ketones Trace H (Negative) mg/dL Ur Blood (Man) Trace (Negative) Urine Nitrate Negative (Negative) Urine Bilirubin Negative (Negative) Urine Urobilinogen 0.2 (<2.0) mg/dL Leukocyte Esterase Rfl 3+ H (Negative) DIANA/UL Urine RBC 3-5 H (0-2) /hpf Urine WBC >100 H (0-3) /hpf Ur Squamous Epith Cells None seen (Few) /hpf Urine Bacteria 4+ H /hpf Urine Casts 3-5 Ethyl Alcohol (<10) mg/dL <Nancy Hoang PA-C - Last Filed: 10/17/24 15:51> Lab Results 10/16/24 10/16/24 10/16/24 Range/Units 21:34 22:48 22:49 WBC 15.4 H (4.5-10.0) K/mm3 RBC 2.79 L (4.6-6.20) M/mm3 Hgb 8.8 L (14.0-18.0) g/dL Hct 29.5 L (42.0-52.0) % MCV 105.7 H (80-100) fl MCH 31.5 (26-34) pg MCHC 29.8 L (32-36) g/dl RDW 12.8 (11.5-14.5) % Plt Count 336 (150-375) k/mm3 MPV 10.6 H (7.4-10.4) fl Immature Gran % (Auto) 3.1 H (0-0.5) % Neut % (Auto) 80.7 H (45.5-73.1) % Lymph % (Auto) 8.3 L (18.3-44.2) % Webster % (Auto) 7.2 (2.6-8.5) % Eos % (Auto) 0.2 (0-4.4) % Baso % (Auto) 0.5 (0.2-1.2) % Lymph # (Auto) 1.28 (0.9-3.2) K/mm3 Webster # (Auto) 1.1 H (0.1-0.6) K/mm3 Eos # (Auto) 0.0 (0-0.3) K/mm3 Baso # (Auto) 0.1 (0.0-0.1) K/mm3 Abs Immat Gran (auto) 0.48 H (0.00-0.031) K/mm3 Absolute Neuts (auto) 12.4 H (1.3-6.7) K/mm3 Absolute Nucleated RBC 0.000 (0.0-0.012) K/mm3 Band Neutrophils % 0 (0-6) % Nucleated RBC % 0.0 (0.0-0.2) % Platelet Estimate Increased (Adequate) Hypochromasia 1+ Anisocytosis 1+ Ovalocytes 1+ Schistocytes None seen ESR > 140 H (0-20) mm/hr PT 14.7 (11.1-14.7) Seconds INR 1.1 APTT 29.1 (22.3-36.8) Seconds Sodium 136 L (137-145) mmol/L Potassium 5.9 H (3.4-5.0) mmol/L Chloride 108 H (98-107) mmol/L Carbon Dioxide 15 L (22-30) mmol/L Anion Gap 13 H (4-12) mmol/L BUN 75 H (9-20) mg/dL Creatinine 5.61 H (0.7-1.3) mg/dL Estim Creat Clear Calc 13 ml/min Estimated GFR 10 L (59 - ) Glucose 127 H (65-110) mg/dL POC Capillary Glucose (65-105) mg/dl Hemoglobin A1c 5.1 (<5.7) % Lactic Acid 1.9 (0.7-2.0) mmol/L Calcium 9.3 (8.4-10.2) mg/dL Total Bilirubin 0.3 (0.2-1.3) mg/dL AST 37 (17-59) U/L ALT 38 (6-50) U/L Alkaline Phosphatase 101 (38-126) U/L Total Creatine Kinase 235 H (55-170) U/L C-Reactive Protein 3.5 H (<1.0) mg/dL Total Protein 7.1 (6.3-8.2) g/dL Albumin 3.3 L (3.5-5.1) g/dL Urine Color (Yellow) Urine Appearance (Clear) Urine pH (5.0-9.0) Ur Specific Malone (1.001-1.035) Urine Protein (Negative) mg/dL Urine Glucose (UA) (Negative) mg/dL Urine Ketones (Negative) mg/dL Ur Blood (Man) (Negative) Urine Nitrate (Negative) Urine Bilirubin (Negative) Urine Urobilinogen (<2.0) mg/dL Leukocyte Esterase Rfl (Negative) DIANA/UL Urine RBC (0-2) /hpf Urine WBC (0-3) /hpf Ur Squamous Epith Cells (Few) /hpf Urine Bacteria /hpf Urine Casts Ethyl Alcohol < 10 (<10) mg/dL 10/17/24 10/17/24 10/17/24 Range/Units 00:54 01:46 01:50 WBC (4.5-10.0) K/mm3 RBC (4.6-6.20) M/mm3 Hgb (14.0-18.0) g/dL Hct (42.0-52.0) % MCV (80-100) fl MCH (26-34) pg MCHC (32-36) g/dl RDW (11.5-14.5) % Plt Count (150-375) k/mm3 MPV (7.4-10.4) fl Immature Gran % (Auto) (0-0.5) % Neut % (Auto) (45.5-73.1) % Lymph % (Auto) (18.3-44.2) % Webster % (Auto) (2.6-8.5) % Eos % (Auto) (0-4.4) % Baso % (Auto) (0.2-1.2) % Lymph # (Auto) (0.9-3.2) K/mm3 Webster # (Auto) (0.1-0.6) K/mm3 Eos # (Auto) (0-0.3) K/mm3 Baso # (Auto) (0.0-0.1) K/mm3 Abs Immat Gran (auto) (0.00-0.031) K/mm3 Absolute Neuts (auto) (1.3-6.7) K/mm3 Absolute Nucleated RBC (0.0-0.012) K/mm3 Band Neutrophils % (0-6) % Nucleated RBC % (0.0-0.2) % Platelet Estimate (Adequate) Hypochromasia Anisocytosis Ovalocytes Schistocytes ESR (0-20) mm/hr PT (11.1-14.7) Seconds INR APTT (22.3-36.8) Seconds Sodium 139 (137-145) mmol/L Potassium 4.2 (3.4-5.0) mmol/L Chloride 120 H (98-107) mmol/L Carbon Dioxide 10 L (22-30) mmol/L Anion Gap 9 (4-12) mmol/L BUN 57 H D (9-20) mg/dL Creatinine 3.79 H (0.7-1.3) mg/dL Estim Creat Clear Calc 19 ml/min Estimated GFR 16 L (59 - ) Glucose 69 (65-110) mg/dL POC Capillary Glucose 44 L* 89 (65-105) mg/dl Hemoglobin A1c (<5.7) % Lactic Acid (0.7-2.0) mmol/L Calcium 6.6 L (8.4-10.2) mg/dL Total Bilirubin (0.2-1.3) mg/dL AST (17-59) U/L ALT (6-50) U/L Alkaline Phosphatase (38-126) U/L Total Creatine Kinase (55-170) U/L C-Reactive Protein (<1.0) mg/dL Total Protein (6.3-8.2) g/dL Albumin (3.5-5.1) g/dL Urine Color (Yellow) Urine Appearance (Clear) Urine pH (5.0-9.0) Ur Specific Malone (1.001-1.035) Urine Protein (Negative) mg/dL Urine Glucose (UA) (Negative) mg/dL Urine Ketones (Negative) mg/dL Ur Blood (Man) (Negative) Urine Nitrate (Negative) Urine Bilirubin (Negative) Urine Urobilinogen (<2.0) mg/dL Leukocyte Esterase Rfl (Negative) DIANA/UL Urine RBC (0-2) /hpf Urine WBC (0-3) /hpf Ur Squamous Epith Cells (Few) /hpf Urine Bacteria /hpf Urine Casts Ethyl Alcohol (<10) mg/dL 10/17/24 10/17/24 Range/Units 03:30 03:43 WBC (4.5-10.0) K/mm3 RBC (4.6-6.20) M/mm3 Hgb (14.0-18.0) g/dL Hct (42.0-52.0) % MCV (80-100) fl MCH (26-34) pg MCHC (32-36) g/dl RDW (11.5-14.5) % Plt Count (150-375) k/mm3 MPV (7.4-10.4) fl Immature Gran % (Auto) (0-0.5) % Neut % (Auto) (45.5-73.1) % Lymph % (Auto) (18.3-44.2) % Webster % (Auto) (2.6-8.5) % Eos % (Auto) (0-4.4) % Baso % (Auto) (0.2-1.2) % Lymph # (Auto) (0.9-3.2) K/mm3 Webster # (Auto) (0.1-0.6) K/mm3 Eos # (Auto) (0-0.3) K/mm3 Baso # (Auto) (0.0-0.1) K/mm3 Abs Immat Gran (auto) (0.00-0.031) K/mm3 Absolute Neuts (auto) (1.3-6.7) K/mm3 Absolute Nucleated RBC (0.0-0.012) K/mm3 Band Neutrophils % (0-6) % Nucleated RBC % (0.0-0.2) % Platelet Estimate (Adequate) Hypochromasia Anisocytosis Ovalocytes Schistocytes ESR (0-20) mm/hr PT (11.1-14.7) Seconds INR APTT (22.3-36.8) Seconds Sodium (137-145) mmol/L Potassium (3.4-5.0) mmol/L Chloride (98-107) mmol/L Carbon Dioxide (22-30) mmol/L Anion Gap (4-12) mmol/L BUN (9-20) mg/dL Creatinine (0.7-1.3) mg/dL Estim Creat Clear Calc ml/min Estimated GFR (59 - ) Glucose (65-110) mg/dL POC Capillary Glucose 143 H (65-105) mg/dl Hemoglobin A1c (<5.7) % Lactic Acid (0.7-2.0) mmol/L Calcium (8.4-10.2) mg/dL Total Bilirubin (0.2-1.3) mg/dL AST (17-59) U/L ALT (6-50) U/L Alkaline Phosphatase (38-126) U/L Total Creatine Kinase (55-170) U/L C-Reactive Protein (<1.0) mg/dL Total Protein (6.3-8.2) g/dL Albumin (3.5-5.1) g/dL Urine Color Yellow (Yellow) Urine Appearance Cloudy H (Clear) Urine pH 5.0 (5.0-9.0) Ur Specific Malone 1.015 (1.001-1.035) Urine Protein 2+ H (Negative) mg/dL Urine Glucose (UA) Negative (Negative) mg/dL Urine Ketones Trace H (Negative) mg/dL Ur Blood (Man) Trace (Negative) Urine Nitrate Negative (Negative) Urine Bilirubin Negative (Negative) Urine Urobilinogen 0.2 (<2.0) mg/dL Leukocyte Esterase Rfl 3+ H (Negative) DIANA/UL Urine RBC 3-5 H (0-2) /hpf Urine WBC >100 H (0-3) /hpf Ur Squamous Epith Cells None seen (Few) /hpf Urine Bacteria 4+ H /hpf Urine Casts 3-5 Ethyl Alcohol (<10) mg/dL <Karyn Stevens MD - Last Filed: 10/17/24 06:55> Imaging Data Attestation: I personally reviewed and interpreted this imaging study as follows: <Nancy Hoang PA-C - Last Filed: 10/17/24 15:51> Radiologist's impression: ITS Impressions Chest X-Ray 10/16/24 22:59 IMPRESSION: Small left-sided pleural effusion without focal infiltrate. Lower Extremity CT 10/16/24 23:39 IMPRESSION: Skin defect over the right second toe, with possible bone exposure, without focal erosion. Skin defect over the left second PIP joint, with suggestion of early erosions on either side of the joint concerning for infection with joint space involvement. Skin defect over the left third DIP joint, with early erosion concerning for infection in the third middle phalanx and possible DIP joint involvement. Skin defects with possible exposure of bone at the distal ends of the left second middle phalanx and left third proximal phalanx, without definite erosion. Dermal thickening and subcutaneous edema in the bilateral feet and lower legs, correlate for clinical findings of cellulitis. No definite fluid collection is identified, however this determination is limited without contrast. Consider MRI of the feet without and with contrast for further evaluation. Lower Extremity CT 10/16/24 23:39 IMPRESSION: Skin defect over the right second toe, with possible bone exposure, without focal erosion. Skin defect over the left second PIP joint, with suggestion of early erosions on either side of the joint concerning for infection with joint space involvement. Skin defect over the left third DIP joint, with early erosion concerning for infection in the third middle phalanx and possible DIP joint involvement. Skin defects with possible exposure of bone at the distal ends of the left second middle phalanx and left third proximal phalanx, without definite erosion. Dermal thickening and subcutaneous edema in the bilateral feet and lower legs, correlate for clinical findings of cellulitis. No definite fluid collection is identified, however this determination is limited without contrast. Consider MRI of the feet without and with contrast for further evaluation. <Nancy Hoang PA-C - Last Filed: 10/17/24 15:51> ECG Data EKG #1: Attestation: I personally reviewed and interpreted this ECG as follows: <JESSY Mcallister Last Filed: 10/17/24 15:51> ECG completion date: 10/16/24 <JESSY Mcallister Last Filed: 10/17/24 15:51> ECG completion time: 22:36 <JESSY Mcallister Last Filed: 10/17/24 15:51> EKG Interpretation: normal rate (60), sinus rhythm, non-specific ST changes and other (T waves are peaked) <JESSY Mcallister Last Filed: 10/17/24 15:51> Pacemaker function: normal pacer function <JESSY Mcallister Last Filed: 10/17/24 15:51> Discharge Plan Discharge Clinical Impression: Osteomyelitis of toe, Hyperkalemia, Multiple open wounds of foot, Cellulitis of both lower extremities, Oliguria Acute renal failure Qualifiers: Acute renal failure type: unspecified Qualified Code(s): N17.9 - Acute kidney failure, unspecified UTI (urinary tract infection) Qualifiers: Urinary tract infection type: acute cystitis Hematuria presence: with hematuria Qualified Code(s): N30.01 - Acute cystitis with hematuria <JESSY Mcallister Last Filed: 10/17/24 15:51> Patient Disposition: Still a Patient <JESSY Mcallister Last Filed: 10/17/24 15:51> Condition: Stable <JESSY Mcallister Last Filed: 10/17/24 15:51>
--- NOTE | 2024-10-16 22:54 | PC.NURSE ---
Patient taken to CT via stretcher at this time.
[2024-10-16 23:01] LABS: Hematocrit 29.5 % (42.0-52.0); Hemoglobin 8.8 g/dL (14.0-18.0); Immature Granulocyte Percent A 3.1 % (0-0.5); Lymphocytes Absolute Auto 1.28 K/mm3 (0.9-3.2); Mean Corpuscular HGB Conc 29.8 g/dl (32-36); Mean Corpuscular Hemoglobin 31.5 pg (26-34); Mean Corpuscular Volume 105.7 fl (80-100); Nucleated Red Blood Cells Absolute Auto 0.000 K/mm3 (0.0-0.012); Nucleated Red Blood Cells Perc 0.0 % (0.0-0.2); Platelet Count Result 336 k/mm3 (150-375); Red Blood Count 2.79 M/mm3 (4.6-6.20); White Blood Count 15.4 K/mm3 (4.5-10.0)
[2024-10-16 23:08] LABS: Hemoglobin A1C 5.1 % (<5.7)
[2024-10-16 23:09] LABS: Band Neutrophils Percent 0 % (0-6)
[2024-10-16 23:10] LABS: Anisocytosis 1+; Hypochromasia 1+; Ovalocytes 1+; Schistocytes None Seen
[2024-10-16] MEDS: SODIUM CHLORIDE 0.9% IV 1,000 ML 999 ML IV CONT ×2 (23:31)
[2024-10-16] MEDS: DEXTROSE 50% 25 GM/50 ML SYRINGE IV PUSH (23:32)
[2024-10-16] MEDS: SODIUM ZIRCONIUM CYCLOSILICATE 10 GM POWD.PACK PO (23:35)
[2024-10-16] MEDS: CALCIUM GLUC 1,000 MG/NS 50 ML 1,000 MG/50 ML BAG 100 MG IVPB (23:35)
[2024-10-16] MEDS: INSULIN HUMAN REGULAR (*BKC) 100 UNITS/ML 10 UNITS IV PUSH (23:35)
[2024-10-16] MEDS: CEFEPIME 2 GM in SODIUM CHLORIDE 0.9% IV 50 ML 100 ML IVPB (23:41)
[2024-10-17] VITALS (22 sets, daily range): BP systolic 114–164; BP diastolic 52–102; PULSE 60–63; RESP 16–30; TEMP 36.6–36.7; O2SAT 92–98
[2024-10-17] MEDS: metroNIDAZOLE 500 MG/ISO 100ML 500 MG/100 ML BAG 100 MG IVPB ×3 (00:16→17:07)
--- NOTE | 2024-10-17 01:00 | PC.NURSE ---
Patients repeat BG is 44, VORB to give juice and crackers as well as amp of dextrose.
[2024-10-17] MEDS: DEXTROSE 50% 25 GM/50 ML SYRINGE IV PUSH ×2 (01:01→02:00)
[2024-10-17] MEDS: VANCOMYCIN 1,750 MG/NS 500 ML 1,750 MG/500 ML BAG 250 MG IVPB (01:16)
--- NOTE | 2024-10-17 01:23 | PC.NURSE ---
Patient attempted to provide urine sample, was unsuccessful. Patient stated you know I actually haven't had much urine output over the past few weeks, if any. PA notified. LINDSEYB to bladder scan.
--- NOTE | 2024-10-17 01:35 | PC.NURSE ---
PA notified of patients bladder scan, still showing 12ml.
--- NOTE | 2024-10-17 01:58 | PC.NURSE ---
Patients repeat BG was 89 and PA notified. VORB to give PRN order of 1/2 amp of dextrose per protocol.
[2024-10-17 03:22] LABS: Anion Gap 9 mmol/L (4-12); Blood Urea Nitrogen 57 mg/dL (9-20); Calcium 6.6 mg/dL (8.4-10.2); Carbon Dioxide 10 mmol/L (22-30); Chloride 120 mmol/L (98-107); Estimated CRCL calculation 19 ml/min; Estimated Glomerular Filt Rate 16; Glucose 69 mg/dL (65-110); Potassium 4.2 mmol/L (3.4-5.0); Sodium 139 mmol/L (137-145)
[2024-10-17 03:39] LABS: Add Urine Microscopic? YES; Appearance Urine Cloudy (Clear); Glucose Urine UA Negative (Negative); Leukocyte Esterase Ur 3+ LEU/UL (Negative); Nitrate Urine Negative (Negative); Specific Grav Ur 1.015 (1.001-1.035)
[2024-10-17] MEDS: SODIUM CHLORIDE 0.9% IV 1,000 ML 100 ML IV CONT (05:02)
--- OUTSIDE RECORDS SUMMARY | 2024-10-17 05:29 | XMS_ITS ---
Author Organization [facility] Address [address] [place] [address] Care Team Providers Care Jointer Machine Operator Name Role Phone Austen Gleasonjit Unavailable [phone] Encounters Encounter Location Date Provider Diagnosis [place] [facility] [address] [place] [address] 07/10/2024 Arian Gleason Plan Of Treatment Next Appt Details Provider Name:Arian Gleason , 11/06/2024 01:00:00 PM, [address], [facility], Progress Notes * IZAGUIRREALPESHOB:1945 ([age] yo M)Acc No.[id number]:07/10/2024 Progress Notes Patient: TA MERCEDES Provider: Charmaine JENKINS MD, Horace.Waldemar.C.P, F.A.S.N. :1945 A ge:78 Y S ex:Male Date:07/10/2024 Address:[address] [place] [address] Subjective: * Chief Complaints: * * Medical History: Objective: * Vitals: Assessment: Plan: * Treatment: * Billing Information: * Visit Code: * Procedure Codes: * Electronic signature of Annabel Gleason MD on 10/17/2024 at 05:29 AM CDT Sign off status: Pending * Provider: Charmaine JENKINS MD, Horace.Waldemar.C.P, F.A.S.N. Date: 0 07/10/2024 Generated for Printing/Faxing/eTransmitting on: 0 10/17/2024 05:29 AM CDT
--- OUTSIDE RECORDS SUMMARY | 2024-10-17 05:29 | XMS_ITS ---
Author Organization [facility] Address [address] [place] [address] Care Team Providers Care Plating Department Helper Name Role Phone Victorino Arian Unavailable [phone] Encounters Encounter Location Date Provider Diagnosis [place] [facility] [address]43 [facility] [address] [place] [address] 09/11/2024 Arian Gleason Chronic kidney disea se, [...] Name:Arian Gleason , 11/06/2024 01:00:00 PM, [address]43 [facility], [facility] [address], [place], [facility], Progress Notes * AMY TUTTLEOB:1945 ([age] yo M)Acc No.[id number]:09/11/2024 Progress Notes Patient: TA MERCEDES Provider: Charmaine JENKINS MD, F.A.C.P, F.A.S.N. :1945 A ge:78 Y S ex:Male Date:09/11/2024 Address:[address] [place] [address] Subjective: * Chief Complaints: * * Medical [...] Treatment: * Billing Information: * Visit Code: 44017 Office Visit, Est Pt., Level 4. * Procedure Codes: * Electronic signature of Annabel Gleason MD on 10/17/2024 at 05:29 AM CDT Sign off status: Pending * Provider: Charmaine JENKINS MD, F.A.C.P, F.A.S.N. Date: 0 09/11/2024 Generated for Printing/Faxing/eTransmitting on: 0 10/17/2024 05:29 AM CDT
--- OUTSIDE RECORDS SUMMARY | 2024-10-17 05:29 | XMS_ITS | Patient Health Record ---
Author Organization [facility] Address [address] [place] [address] Care Team Providers Care Special Procedures Technologist Name Role Phone Arian Gleason Unavailable [phone] Reason For Referral No Information Medications Medication [...] days 08/07/2024 08/02/2025 Active Ergocalciferol 1.25 MG (98456 UT) 1 capsule Orally Once a week; Duration: 30 days 08/07/2024 12/05/2024 Active Problems Problem Type SNOMED Code ICD Code Onset Dates Problem Status W/U Status Risk Notes Problem Hyperglycemia due to type 2 diabetes mellitus (021367995524693) Type 2 diabetes mellitus with hyperglycemia (E11.65) Active confirmed Problem Secondary hyperparathyroidism (97461398) Secondary hyperparathyroid ism, not elsewhere classified (E21.1) Active confirmed Problem Hyperparathyroidism (34709842) Hyperparathyroid ism, unspecified (E21.3) Active confirmed Problem Vitamin D deficiency (75503045) Vitamin D deficiency, unspecified (E55.9) Active confirmed Problem Hyperuricemia withou t signs of inflammatory arthritis and tophaceous disease (770746868) Hyperuricemia without signs of inflammatory arthritis and tophaceous disease (E79.0) Active confirmed Problem Hypo-osmolality and or hyponatremia (793292623) Hypo-osmolality and hyponatremia (E87.1) Active confirmed Problem Hypokalemia (71547002) Hypokalemia (E87.6) Active confirmed Problem Chronic systolic heart failure (385108224) Chronic systolic (congestive) heart failure (I50.22) Active confirmed Problem Primary generalised osteoarthritis (930011906) Primary generalized (osteo)arthritis (M15.0) Active confirmed Problem Chronic kidney disease stage 4 (056447948) Chronic kidney disease, stage 4 (severe) (N18.4) Active confirmed Problem Renal osteodystrophy (75888901) Renal osteodystrophy (N25.0) Active confirmed Problem Dyspnea (237103457) Dyspnea, unspecified (R06.00) Active confirmed Problem Proteinuria (06140801) Proteinuria, unspecified (R80.9) Active confirmed Problem Essential hypertension (56094926) Essential hypertension (I10) Active confirmed Encounters Encounter Location Date Provider Diagnosis [facility] 2043 [facility] 15 [place] [address] 10/25/2023 Arian Gleason Chronic kidney disease, stage 4 (severe) N18.4 ; Renal osteodystrophy N25.0 ; Proteinuria, unspecified R80.9 ; Essential hypertension I10 ; Type 2 diabetes mellitus with hyperglycemia E11.65 and Secondary hyperparathyroidism, not elsewhere classified E21.1 [facility] [address]43 [facility] [address] [place] [address] 01/17/2024 Arian Gleason Essential hypertensi on I10 ; Chronic kidney disease, stage 4 (severe) N18.4 ; Type 2 diabetes mellitus with hyperglycemia E11.65 ; Secondary hyperparathyroidism, not elsewhere classified E21.1 ; Renal osteodystrophy N25.0 ; Proteinuria, unspecified R80.9 and Chronic kidney disease, stage 3a N18.31 [facility] [address] [facility] [address] [place] [address] 02/21/2024 Arian Gleason Essential hypertensi on I10 ; Chronic kidney disease, stage 4 (severe) N18.4 ; Type 2 diabetes mellitus with hyperglycemia E11.65 ; Renal osteodystrophy N25.0 ; Secondary hyperparathyroidism, not elsewhere classified E21.1 and Proteinuria, unspecified R80.9 [facility] [address] [place] [address] 03/27/2024 Arian Gleason Chronic kidney disease, stage 4 (severe) N18.4 ; Dyspnea, unspecified R06.00 ; Renal osteodystrophy N25.0 ; Type 2 diabetes mellitus with hyperglycemia E11.65 and Hypokalemia E87.6 [facility] [address] [place] [address] 05/01/2024 Arian Gleason [facility] [address] [place] [address] 06/05/2024 Arian Gleason Chronic kidney disease, stage 4 (severe) N18.4 ; Essential hypertension I10 ; Type 2 diabetes mellitus with hyperglycemia E11.65 ; Renal osteodystrophy N25.0 ; Secondary hyperparathyroidism, not elsewhere classified E21.1 ; Proteinuria, unspecified R80.9 ; Dyspnea, unspecified R06.00 ; Hypokalemia E87.6 ; Chronic systolic (congestive) heart failure I50.22 ; Vitamin D deficiency, unspecified E55.9 and Primary generalized (osteo)arthritis M15.0 [facility] [address] [place] [address] 08/07/2024 Arian Gleason Chronic kidney disease, stage [...] unspecified E21.3 and Hypo-osmolality and hyponatremia E87.1 [facility] [address] [address] 09/11/2024 Arian Gleason Chronic kidney disease, stage 4 [...] unspecified E21.3 and Hypo-osmolality and hyponatremia E87.1 [facility] [address] [place] [address] 03/09/2024 Arian Gleason [facility] [address] [address] 05/01/2024 Arian Gleason [facility] [address] [place] [address] 07/14/2024 Arian Gleason [facility] [address] [address] 08/07/2024 Arian Gleason [facility] [address] [address] 09/11/2024 Arian Gleason [facility] [address] [facility] [address] [place] [address] 01/17/2024 Arian Gleason [facility] [address] [address] 01/20/2024 Arian Gleason Assessments Encounter Date Diagnosis (ICD Code) Assessment Notes Treatment Notes Treatment Clinical Notes Section Notes 10/25/2023 Chronic kidney disease, stage 4 (severe) (ICD-10 - N18.4) 01/17/2024 Chronic kidney disease, stage 4 (severe) (ICD-10 - N18.4) 01/17/2024 Essential hypertension (ICD-10 - I10) 02/21/2024 Essential hypertension (ICD-10 - I10) 03/27/2024 Chronic kidney disease, stage 4 (severe) (ICD-10 - N18.4) 06/05/2024 Chronic kidney disease, stage 4 (severe) (ICD-10 - N18.4) 08/07/2024 Chronic kidney disease, stage 4 (severe) (ICD-10 - N18.4) 09/11/2024 Chronic kidney disease, stage 4 (severe) (ICD-10 - N18.4) 09/11/2024 Essential hypertension (ICD-10 - I10) 08/07/2024 Essential hypertension (ICD-10 - I10) 06/05/2024 Essential hypertension (ICD-10 - I10) 02/21/2024 Chronic kidney disease, stage 4 (severe) (ICD-10 - N18.4) 03/27/2024 Dyspnea, unspecified (ICD-10 - R06.00) 01/17/2024 Type 2 diabetes mellitus with hyperglycemia (ICD-10 - E11.65) 10/25/2023 Renal osteodystrophy (ICD-10 - N25.0) 10/25/2023 Proteinuria, unspecified (ICD-10 - R80.9) 01/17/2024 Secondary hyperparathyroidism , not elsewhere classified (ICD-10 - E21.1) 02/21/2024 Type 2 diabetes mellitus with hyperglycemia (ICD-10 - E11.65) 06/05/2024 Type 2 diabetes mellitus with hyperglycemia (ICD-10 - E11.65) 08/07/2024 Type 2 diabetes mellitus with hyperglycemia (ICD-10 - E11.65) 03/27/2024 Renal osteodystrophy (ICD-10 - N25.0) 09/11/2024 Type 2 diabetes mellitus with hyperglycemia (ICD-10 - E11.65) 08/07/2024 Renal osteodystrophy (ICD-10 - N25.0) 09/11/2024 Renal osteodystrophy (ICD-10 - N25.0) 06/05/2024 Renal osteodystrophy (ICD-10 - N25.0) 02/21/2024 Renal osteodystrophy (ICD-10 - N25.0) 03/27/2024 Type 2 diabetes mellitus with hyperglycemia (ICD-10 - E11.65) 01/17/2024 Renal osteodystrophy (ICD-10 - N25.0) 10/25/2023 Essential hypertension (ICD-10 - I10) 10/25/2023 Type 2 diabetes mellitus with hyperglycemia (ICD-10 - E11.65) 01/17/2024 Proteinuria, unspecified (ICD-10 - R80.9) 02/21/2024 Secondary hyperparathyroidism , not elsewhere classified (ICD-10 - E21.1) 03/27/2024 Hypokalemia (ICD-10 - E87.6) 06/05/2024 Secondary hyperparathyroidism , not elsewhere classified (ICD-10 - E21.1) 08/07/2024 Secondary hyperparathyroidism , not elsewhere classified (ICD-10 - E21.1) 09/11/2024 Secondary hyperparathyroidism , not elsewhere classified (ICD-10 - E21.1) 08/07/2024 Proteinuria, unspecified (ICD-10 - R80.9) 09/11/2024 Proteinuria, unspecified (ICD-10 - R80.9) 06/05/2024 Proteinuria, unspecified (ICD-10 - R80.9) 02/21/2024 Proteinuria, unspecified (ICD-10 - R80.9) 01/17/2024 Chronic kidney disease, stage 3a (ICD-10 - N18.31) 10/25/2023 Secondary hyperparathyroidism , not elsewhere classified (ICD-10 - E21.1) 06/05/2024 Dyspnea, unspecified (ICD-10 - R06.00) 09/11/2024 Dyspnea, unspecified (ICD-10 - R06.00) 08/07/2024 Dyspnea, unspecified (ICD-10 - R06.00) 09/11/2024 Hypokalemia [...] Name:Arian Gleason , 11/06/2024 01:00:00 PM, 2043 [facility], [facility] [address], [place], [address],
--- OUTSIDE RECORDS SUMMARY | 2024-10-17 05:30 | XMS_ITS ---
Author Organization [facility] Address [address] [place] [address] Care Team Providers Care Program Checker Name Role Phone Victorino Arian Unavailable [phone] Problems Problem Type SNOMED Code ICD Code Onset Dates Problem Status W/U Status Risk Notes Problem Hyperuricemia without signs of inflammatory arthritis and tophaceous disease (484016285) Hyperuricemia without signs of inflammatory arthritis and tophaceous disease (E79.0) Active confirmed Problem Hyperparathyroid i sm, unspecified (E21.3) Active confirmed Problem Hypo-osmolality and or hyponatremia (744636073) Hypo-osmolality and hyponatremia (E87.1) Active confirmed Encounters Encounter Location Date Provider Diagnosis [facility] 2043 [facility] 15 [place] [address] 08/07/2024 Arian Gleason Chronic kidney disea se, [...] Name:Arian Gleason , 11/06/2024 01:00:00 PM, 2043 [facility] [address], [place], [facility], Progress Notes * AMY TUTTLEOB:1945 ([age] yo M)Acc No.[id number]:08/07/2024 Progress Notes Patient: TA MERCEDES Provider: Charmaine JENKINS MD, F.A.C.P, F.A.S.N. :1945 A ge:78 Y S ex:Male Date:08/07/2024 Address:[facility] [place] [address] Subjective: * Chief Complaints: * * Medical [...] Treatment: * Billing Information: * Visit Code: 57208 Office Visit, Est Pt., Level 4. * Procedure Codes: * Electronic signature of Annabel Gleason MD on 10/17/2024 at 05:29 AM CDT Sign off status: Pending * Provider: Charmaine JENKINS MD, F.A.C.P, F.A.S.N. Date: 0 08/07/2024 Generated for Printing/Faxing/eTransmitting on: 0 10/17/2024 05:29 AM CDT
--- NOTE | 2024-10-17 06:04 | WNDPHOTO ---
PHOTO ONLY - See Nursing Notes and/ or assessments for documentation.
--- NOTE | 2024-10-17 06:22 | ADMGEN ---
This patient, Oj Brandt, was admitted to 2 Medical Room 259-. Patient/family oriented to hospital policies and general routines including ID bracelet, bed and alarms, visiting hours, pain management, procedures, bathroom and other care routines, personal items, smoking policy, room service/diet, and visiting hours. Information on how to activate the Rapid Response Team has been discussed. Patient/Family are encouraged to report perceived risks to care and to ask questions if they do not understand what they are told or what they should do.
[2024-10-17 07:27] LABS: Hematocrit 30.2 % (42.0-52.0); Hemoglobin 9.0 g/dL (14.0-18.0); Mean Corpuscular HGB Conc 29.8 g/dl (32-36); Mean Corpuscular Hemoglobin 31.8 pg (26-34); Mean Corpuscular Volume 106.7 fl (80-100); Platelet Count Result 313 k/mm3 (150-375); Red Blood Count 2.83 M/mm3 (4.6-6.20); White Blood Count 18.2 K/mm3 (4.5-10.0)
[2024-10-17 08:02] LABS: Alanine Aminotransferase 33 U/L (6-50); Albumin Level 3.0 g/dL (3.5-5.1); Alkaline Phosphatase 102 U/L (38-126); Anion Gap 12 mmol/L (4-12); Aspartate Amino Transferase 31 U/L (17-59); Bilirubin,Total 0.4 mg/dL (0.2-1.3); Blood Urea Nitrogen 72 mg/dL (9-20); Calcium 9.3 mg/dL (8.4-10.2); Carbon Dioxide 12 mmol/L (22-30); Chloride 112 mmol/L (98-107); Estimated CRCL calculation 14 ml/min; Estimated Glomerular Filt Rate 11; Glucose 126 mg/dL (65-110); Magnesium 1.4 mg/dL (1.6-2.3); Potassium 5.9 mmol/L (3.4-5.0); Sodium 136 mmol/L (137-145); Total Protein 6.7 g/dL (6.3-8.2)
[2024-10-17 08:11] LABS: Band Neutrophils Percent 3 % (0-6); Basophils Absolute Manual 0.18 K/mm3 (0.0-0.1); Basophils Percent Manual 1 % (0-1); Hypochromasia 1+; Lymphocytes Absolute Manual 1.09 K/mm3 (1.1-4.5); Lymphocytes Percent Manual 6 % (18-44); Monocytes Absolute Manual 0.36 K/mm3 (0.1-0.90); Monocytes Percent Manual 2 % (3-9); Neutrophils Absolute Manual 16.56 K/mm3 (1.3-6.7); Neutrophils Percent Manual 88 % (46-73); Schistocytes None Seen; Total Cells Counted 100
--- NOTE | 2024-10-17 08:11 | P.HP_ITS ---
H&P: HPI History of Present Illness Date/Time: 10/17/24 08:11 Chief Complaint: General weakness, worsening wounds of feet Narrative: Patient is a 78-year-old male with history of hypertension, Parkinson disease called, brought to ED by EMS because of general weakness and worsening wounds of bilateral feet. Patient has been having bilateral feet wound more than 1 month. Patient did not receive medical treatment. Patient has been feeling weak recently, and patient follow-up toilet today and could not stand up. Patient denies focal weakness, lightheadedness, slurred speech, dizziness, chest pain, palpitation, abdomen pain, nausea vomiting diarrhea dysuria. Patient was brought to ED via EMS for further evaluation treatment. Upon arrival to ED, patient has uncontrolled blood pressure 164/67, tachypnea UA showed cloudy urine, pyuria, white blood cell more than 100, bacteria in the urine 4+ CBC showed leukocytosis 18,200 with left shift, hemoglobin 8.8 upon arrival, no recent baseline for comparison, Chemistry showed hyponatremia 136, hyperkalemia 5.9, bicarbonate 12, elevated BUN creatinine ratio 72/5.33, magnesium 1.4, CT showed skin defect over the right second toe, with possible bone exposure, without focal erosion.Skin defect over the left second PIP joint, with suggestion of early erosions on either side of the joint concerning for infection with joint space involvement. Skin defect over the left third DIP joint, with early erosion concerning for infection in the third middle phalanx and possible DIP joint involvement. Skin defects with possible exposure of bone at the distal ends of the left second middle phalanx and left third proximal phalanx, without definite erosion. Dermal thickening and subcutaneous edema in the bilateral feet and lower legs, correlate for clinical findings of cellulitis [facility] Past Medical History Medical History (Updated 10/17/24 @ 14:40 by Mauricio Hunt MD) Proteinuria DJD (degenerative joint disease) CHF exacerbation Vitamin D deficiency Hyperuricemia Hypertension Hyperphosphatemia BPH (benign prostatic hyperplasia) Chronic kidney disease Chronic anemia Metabolic acidosis Family History Family History (Updated 10/17/24 @ 06:34 by Sharri Murphy RN) Other Parents Social History Social History Smoking status: Former smoker Tobacco type: cigarettes Alcohol intake: former Substance use: never Substance use type: does not use Lack of Transportation: No Lack of Food: Never True Current Housing: I Have Housing Concerned About Future Housing: No Difficulty Paying Gas/Electric Bills: No Difficulty Paying for Meds: No Currently Unemployed: No Education: Bachelor's Degree Difficulty w/ Childcare or Family Care: No Spiritual care concerns: No Meds Home Medications and Allergies Home Medications ?Medication ?Instructions ?Recorded ?Confirmed ?Type allopurinol 100 mg tablet 100 mg PO Q8H 10/17/24 10/17/24 History calcitriol 0.25 mcg capsule 0.25 mcg PO TID 10/17/24 10/17/24 History ergocalciferol (vitamin D2) 1,250 1,250 mcg PO WEEKLY 10/17/24 10/17/24 History mcg (50,000 unit) capsule furosemide 20 mg tablet 20 mg PO DAILY 10/17/24 10/17/24 History gabapentin 300 mg capsule 300 mg PO Q12H 10/17/24 10/17/24 History lisinopril 20 mg tablet 20 mg PO Q12H 10/17/24 10/17/24 History metoprolol tartrate 50 mg tablet 50 mg PO Q12H 10/17/24 10/17/24 History nifedipine 60 mg tablet,extended 60 mg PO DAILY 10/17/24 10/17/24 History release ropinirole 1 mg tablet 1 mg PO HS 10/17/24 10/17/24 History sevelamer carbonate 800 mg tablet 800 mg PO TIDWM 10/17/24 10/17/24 History sodium bicarbonate 650 mg tablet 1,300 mg PO BID 10/17/24 10/17/24 History tamsulosin 0.4 mg capsule 0.4 mg PO Q24H 10/17/24 10/17/24 History Allergies Allergy/AdvReac Type Severity Reaction Status Date / Time No Known Allergies Allergy Unknown Unverified 09/13/06 06:57 Vital Signs Vital Signs - 24 hr 10/16/24 20:52 10/16/24 21:13 10/16/24 21:15 Temperature 98.4 F Pulse Rate 60 60 60 Respiratory Rate 20 13 18 Blood Pressure 116/100 H Pulse Oximetry 96 99 100 Oxygen Delivery Room Air 10/16/24 21:30 10/16/24 21:45 10/16/24 22:00 Temperature Pulse Rate 60 60 60 Respiratory Rate 20 16 20 Blood Pressure Pulse Oximetry 99 100 98 Oxygen Delivery 10/16/24 22:30 10/16/24 22:45 10/16/24 22:52 Temperature Pulse Rate 60 60 65 Respiratory Rate 16 23 H 21 H Blood Pressure 157/138 H Pulse Oximetry 100 97 Oxygen Delivery 10/17/24 00:20 10/17/24 00:30 10/17/24 00:53 Temperature Pulse Rate 60 60 60 Respiratory Rate 24 H 26 H 24 H Blood Pressure Pulse Oximetry Oxygen Delivery 10/17/24 01:00 10/17/24 01:02 10/17/24 01:14 Temperature 98.1 F Pulse Rate 63 60 60 Respiratory Rate 17 25 H 17 Blood Pressure 134/102 H 134/102 H Pulse Oximetry 97 97 Oxygen Delivery 10/17/24 01:15 10/17/24 01:37 10/17/24 02:30 Temperature Pulse Rate 60 60 60 Respiratory Rate 30 H 24 H 17 Blood Pressure 147/74 H Pulse Oximetry 96 98 Oxygen Delivery 10/17/24 04:25 10/17/24 04:50 10/17/24 05:00 Temperature Pulse Rate 60 60 60 Respiratory Rate 17 30 H 30 H Blood Pressure 139/61 Pulse Oximetry 97 Oxygen Delivery 10/17/24 05:01 10/17/24 05:15 10/17/24 05:40 Temperature Pulse Rate 60 60 60 Respiratory Rate 26 H 30 H 17 Blood Pressure 164/65 H 164/67 H Pulse Oximetry 95 97 Oxygen Delivery 10/17/24 07:18 Temperature Pulse Rate Respiratory Rate Blood Pressure Pulse Oximetry Oxygen Delivery Room Air Exam Narrative: GENERAL: Ill-appearing in no acute distress. Well-nourished. - EYES: EOMI. Anicteric. - HENT: Moist mucous membranes. - LUNGS: Clear to auscultation bilateral ly, no wheezing, rhonchi, or rales. - CARDIOVASCULAR: Regular rate and rhyth m. No murmur. No JVD. - ABDOMEN: Soft, non-tender and non-dist ended. No palpable masses. - EXTREMITIES: No edema. Peripheral puls es weak bilaterally. Non-tender. - NEUROLOGIC: No focal neurological defi cits. CN II-XII grossly intact. - PSYCHIATRIC: Awake, Alert and oriented x 3. Appropriate mood and affect. - SKIN: Tender, swelling erythema of bi lateral lower extremities, multiple necrotic tissue over multiple toes bilateral feet, purulent discharge from the right foot between the fingers - LYMPH: No cervical lymphadenopathy. H&P: Results Labs Labs: Short CBC 10/16/24 10/17/24 Range/Units 22:48 07:20 WBC 15.4 H 18.2 H (4.5-10.0) K/mm3 Hgb 8.8 L 9.0 L (14.0-18.0) g/dL Hct 29.5 L 30.2 L (42.0-52.0) % Plt Count 336 313 (150-375) k/mm3 BMP 10/16/24 10/17/24 10/17/24 21:34 01:50 07:20 Sodium 136 L 139 136 L Potassium 5.9 H 4.2 5.9 H Chloride 108 H 120 H 112 H Carbon Dioxide 15 L 10 L 12 L BUN 75 H 57 H D 72 H D Creatinine 5.61 H 3.79 H 5.33 H Glucose 127 H 69 126 H Calcium 9.3 6.6 L 9.3 Cardiac Enzymes 10/16/24 Range/Units 21:34 Total Creatine Kinase 235 H (55-170) U/L Liver Function 10/16/24 10/17/24 Range/Units 21:34 07:20 Total Bilirubin 0.3 0.4 (0.2-1.3) mg/dL AST 37 31 (17-59) U/L ALT 38 33 (6-50) U/L Alkaline Phosphatase 101 102 (38-126) U/L Albumin 3.3 L 3.0 L (3.5-5.1) g/dL Urine 10/17/24 Range/Units 03:30 Urine Color Yellow (Yellow) Urine Appearance Cloudy H (Clear) Urine pH 5.0 (5.0-9.0) Ur Specific [place] 1.015 (1.001-1.035) Urine Protein 2+ H (Negative) mg/dL Urine Glucose (UA) Negative (Negative) mg/dL Assessment and Plan Assessment and plan (1) Sepsis: Code(s): A41.9 - Sepsis, unspecified organism Status: Acute (2) Acute renal failure: Qualifiers: Acute renal failure type: unspecified Qualified Code(s): N17.9 - Acute kidney failure, unspecified Code(s): N17.9 - Acute kidney failure, unspecified Status: Acute (3) Oliguria: Code(s): R34 - Anuria and oliguria Status: Acute (4) Hyperkalemia: Code(s): E87.5 - Hyperkalemia Status: Acute (5) UTI (urinary tract infection): Qualifiers: Hematuria presence: with hematuria Urinary tract infection type: acute cystitis Qualified Code(s): N30.01 - Acute cystitis with hematuria Code(s): N39.0 - Urinary tract infection, site not specified Status: Acute (6) Cellulitis of both lower extremities: Code(s): L03.115 - Cellulitis of right lower limb; L03.116 - Cellulitis of left lower limb Status: Acute (7) Multiple open wounds of foot: Code(s): S91.309A - Unspecified open wound, unspecified foot, initial encounter Status: Acute (8) Metabolic acidosis: Code(s): E87.20 - Acidosis, unspecified Status: Acute (9) End stage renal disease: Code(s): N18.6 - End stage renal disease Status: Deleted (10) Physical deconditioning: Code(s): R53.81 - Other malaise Status: Acute (11) Chronic anemia: Code(s): D64.9 - Anemia, unspecified Status: Acute Plan Sepsis UTI Cellulitis of bilateral lower extremities Multiple wound infection bilateral lower extremities Osteomyelitis possible involving left second PIP joint, left third DIP joint,third middle phalanx and possible DIP joint , UA showed cloudy urine, pyuria, white blood cell more than 100, bacteria in the urine 4+ CBC showed leukocytosis 18,200 with left shift, hemoglobin 8.8 upon arrival, no recent baseline for comparison, CT showed skin defect over the right second toe, with possible bone exposure, without focal erosion.Skin defect over the left second PIP joint, with suggestion of early erosions on either side of the joint concerning for infection with joint space involvement. Skin defect over the left third DIP joint, with early erosion concerning for infection in the third middle phalanx and possible DIP joint involvement. Skin defects with possible exposure of bone at the distal ends of the left second middle phalanx and left third proximal phalanx, without definite erosion. Dermal thickening and subcutaneous edema in the bilateral feet and lower legs, correlate for clinical findings of cellulitis Start fluid resuscitation per sepsis protocol Continue normal saline IV Received vancomycin, cefepime and metronidazole in the ED, continued antibiotics, dosing vancomycin per pharmacist Consult surgeon for evaluation treatment Pending blood culture urine culture Pending LINDSAY, bilateral pedal pulses weak End-stage renal disease/acute renal failure Hyperkalemia High anion gap metabolic acidosis Hyponatremia Chemistry showed hyponatremia 136, hyperkalemia 5.9, bicarbonate 12, elevated BUN creatinine ratio 72/5.33, magnesium 1.4, No recent creatinine level for comparison Pending renal ultrasound Patient is on fluid resuscitation Continue bicarbonate 1.3 g b.i.d. p.o Renvela 800 mg t.i.d. p.o. 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 Start hydralazine 50 mg t.i.d. p.o. Anemia No recent hemoglobin for comparison Possible chronic anemia Follow-up stool guaiac, ferritin, iron panel, right low side Follow-up CBC
[2024-10-17 08:15] LABS: INR 1.2; Prothrombin Time 15.0 Seconds (11.1-14.7)
[2024-10-17 08:24] LABS: Thyroid Stimulating Hormone Reflex 1.470 uIU/mL (0.465-4.68)
[2024-10-17 08:38] LABS: Urine Eos QC 2nd Tech Confirmed
[2024-10-17 09:30] LABS: Total Protein Urine Random 73 mg/dL
[2024-10-17 09:31] LABS: Ur Ttl Prot Creatinine Ratio 0.64 mg/mg (0-0.20)
[2024-10-17 09:44] LABS: Urea Random Urine 308 MG/DL
--- NOTE | 2024-10-17 10:48 | P.CONNP_ITS ---
Assessment and Plan Assessment and plan (1) Acute kidney injury: Code(s): N17.9 - Acute kidney failure, unspecified Status: Acute Assessment and Plan: * as evidence of by admission and AM labs (on 10/17) * repeat labs done in ER (10/17 at 1:50am was likely a lab error) * suspect multifactorial etiology: * infection/early sepsis [UTI + cellulitis +/- osteomyelitis(?)] * pre-renal factors * use of NATHALIE-I prior to admission * use of diuretics prior to admission * other(?) * evaluation to date noted: * UA suggests infection * urine eosinophils negative * urine electrolytes prerenal (FeUrea) * moderate proteinuria * CPK mildy elevated but not enough to affect kidney function * renal ultrasound pending * trial of IVFs (will add bicarb given acidosis) * repeat labs later today to follow trend of acidosis, K+, and creatinine * remains at risk for RN ANESTHETIST/hemodialysis * follow trend of repeat labs and UOP (2) Stage 4 chronic kidney disease: Code(s): N18.4 - Chronic kidney disease, stage 4 (severe) Status: Acute Assessment and Plan: * per patient, GFR has fluctuated to extremes * per outpatient labs done at [facility] (by verbal report): * 09/07/24 - creatinine 3.01mg/dl (GFR 20) * 08/03/24 - creatinine 2.44mg/dl (GFR 26) * presumably due to hypertension, CHF(?), vascular disease, and age-related change * follows with Dr. Arian Gleason for management of his chronic kidney disease (3) Hyperkalemia: Code(s): E87.5 - Hyperkalemia Status: Acute Assessment and Plan: * due to KURTIS, NATHALIE-I use, and acidosis * s/p medical management in the ER * redose lokelma now since K+ still elevated * follow trend of repeat K+ (4) Metabolic acidosis: Code(s): E87.20 - Acidosis, unspecified Status: Acute Assessment and Plan: * acute on chronic * on outpatient sodium bicarbonate * acute worsening secondary to KURTIS and IVF resuscitation * add bicarbonate to IVFs * resume oral sodium bicarbonate * follow CO2 levels (5) Cellulitis of both lower extremities: Code(s): L03.115 - Cellulitis of right lower limb; L03.116 - Cellulitis of left lower limb Status: Acute Assessment and Plan: * as noted on presentation * complicated by multiple skin wounds/defects/erosions * possible osteomyelitis(?) * CT of bilateral lower extremities noted: * skin defect over the right second toe, with possible bone exposure, without focal erosion * skin defect over the left second PIP joint, with suggestion of early erosions on either side of the joint concerning for infection with joint space involvement * skin defect over the left third DIP joint, with early erosion concerning for infection in the third middle phalanx and possible DIP joint involvement * skin defects with possible exposure of bone at the distal ends of the left second middle phalanx and left third proximal phalanx, without definite erosion * dermal thickening and subcutaneous edema in the bilateral feet and lower legs, correlate for clinical findings of cellulitis * no definite fluid collection is identified, however this determination is limited without contrast * may need MRI for further evaluation * Surgery consulted * follow culture data * local wound care * on antibiotics (6) UTI (urinary tract infection): Qualifiers: Hematuria presence: with hematuria Urinary tract infection type: acute cystitis Qualified Code(s): N30.01 - Acute cystitis with hematuria Code(s): N39.0 - Urinary tract infection, site not specified Status: Acute Assessment and Plan: * as suggested by admission UA * follow culture data * on antibiotics (7) Anemia: Code(s): D64.9 - Anemia, unspecified Status: Acute Assessment and Plan: * due to KURTIS, CKD, and acute illness * check anemia studies (although not a candidate for IV iron given suspected acute infection * might need MURRAY * follow trend of H/H (8) Generalized weakness: Code(s): R53.1 - Weakness Status: Acute Assessment and Plan: * s/p fall prior to admission * suspect due to acute illness (infection, KURTIS, hyperkalemia, acidosis...etc) * PT/OT as tolerated Long extensive discussion (> 20 minutes) with the patient regarding his significant decline in renal function as noted by admission labs in the context of acute infection and possible early sepsis. I voiced my concerns to him that if his renal function continues to deteriorate or he continues to have ongoing issues/ problems with hyperkalemia and metabolic acidosis unresponsive to medical therapy, he may require renal replacement therapy /dialysis. He appeared to voice understanding as his primary vb net programmer's has discuss the issue of dialysis with him in the past as well. I will continue to follow the patient with you while he remains hospitalized and make further recommendations as deemed necessary. Thank you for allowing me to participate in the care of this patient. L History of Present Illness Reason for Consult Consult date: 10/17/24 Reason for consult: acute renal failure (on chronic kidney disease) Chief Complaint Chief complaint: osteomyelitis/cellulitis BLE, ARF, hyperkalemia History of Present Illness Narrative: The patient is a 78-year-old male with a past medical history as outlined below who presented to [facility] Emergency Room due to generalized weakness and status post fall. Yesterday evening, the patient apparently fell off the toilet and had significant difficulty getting up from the ground. He apparently laid there for approximately 10 minutes as his and daughter had significant difficulty get numb up. Eventually they called EMS for assistance. He denies any loss of consciousness prior to or after the fall and denies injuring himself after the fall or any head trauma. He was noted by EMS that he had significant bilateral lower extremity/ feet/ toe wounds which patient states has been present for at least the last month if not longer. He apparently has been just putting bandages over these wounds without any other specific treatment strategy. Live maggots were apparently noted on these wounds, specifically the wounds on his toes. He was subsequently transferred to the emergency room by EMS for further assessment. Workup and evaluation emergency room demonstrated the patient to be hemodynamically stable and in no acute distress. His lower extremity wounds were thoroughly irrigated and cleaned and dressed. Routine blood work demonstrated white blood cell count of 15.4, hemoglobin 8.8, creatinine 5.61, BUN 75, potassium 5.9, bicarb 15 and a lactic acid of 1.9. His CPK was 235 and his inflammatory markers were significantly elevated. Urinalysis was done which demonstrated evidence of infection as well. Chest x-ray was significant for a small left pleural effusion without evidence of focal infiltrate. Given his significant lower extremity wounds, CT scans of the bilateral lower extremities were done which showed numerous areas of erosion, skin defects, and possible bone exposure. After appropriate cultures were obtained, he was initiated on broad-spectrum antibiotics particularly due to concerns for possible osteomyelitis. His EKG showed peaked T-waves but no evidence of acute ischemia. He received medical management for his hyperkalemia and IV fluids were initiated as well as it was not clear what his baseline renal function normally runs although he did give a history of renal insufficiency/chronic kidney disease. His repeat labs done in the ER showed improvement in his potassium and renal function although given evidence to date, it would appear that those labs were probably an error as his repeat labs earlier this morning showed no real significant change in his potassium and kidney function. He was subsequently admitted to the hospital for further evaluation and therapy. Renal consultation was requested due to his acute kidney injury/acute renal failure on top of his baseline chronic kidney disease. The patient states that he has been following with Dr. Gleason for management of his chronic kidney disease for last several years. He tells me that his GFR has fluctuated anywhere from 11% to 30% in that time frame although he states his most recent labs a few months ago showed that his GFR was around 20%. The presumed etiology of his kidney disease is likely hypertension, vascular disease, and age-related change although the fact that he has a pacemaker and apparently has a reported history of congestive heart failure may also be playing a role as well. Apparently, given the severity of his kidney disease, he sees Dr. Gleason about every 4 - 6 weeks for monitoring of his renal function. Unfortunately, since his admission, his renal function has not significantly changed and more concerning is the fact he is not making very much urine as well. Currently, at the time my evaluation, he does not appear to be in any acute distress. Review of Systems 2 Review of Systems: As per HPI. [facility] Past Medical History Medical History (Updated 10/17/24 @ 15:11 by Mauricio Hunt MD) Pacemaker Proteinuria DJD (degenerative joint disease) CHF exacerbation Vitamin D deficiency Hyperuricemia Hypertension Hyperphosphatemia BPH (benign prostatic hyperplasia) Chronic anemia Metabolic acidosis Chronic kidney disease Surgical History Surgical History (Updated 10/17/24 @ 15:11 by Mauricio Hunt MD) Status post placement of cardiac pacemaker Family History Family History (Updated 10/17/24 @ 06:34 by Sharri Murphy RN) Other Parents Social History Social History Smoking status: Former smoker Tobacco type: cigarettes Alcohol intake: former Substance use: never Substance use type: does not use Lack of Transportation: No Lack of Food: Never True Current Housing: I Have Housing Concerned About Future Housing: No Difficulty Paying Gas/Electric Bills: No Difficulty Paying for Meds: No Currently Unemployed: No Education: Bachelor's Degree Difficulty w/ Childcare or Family Care: No Spiritual care concerns: No Meds Home Medications and Allergies Home Medications ?Medication ?Instructions ?Recorded ?Confirmed ?Type allopurinol 100 mg tablet 100 mg PO Q8H 10/17/24 10/17/24 History calcitriol 0.25 mcg capsule 0.25 mcg PO TID 10/17/24 10/17/24 History ergocalciferol (vitamin D2) 1,250 1,250 mcg PO WEEKLY 10/17/24 10/17/24 History mcg (50,000 unit) capsule furosemide 20 mg tablet 20 mg PO DAILY 10/17/24 10/17/24 History gabapentin 300 mg capsule 300 mg PO Q12H 10/17/24 10/17/24 History lisinopril 20 mg tablet 20 mg PO Q12H 10/17/24 10/17/24 History metoprolol tartrate 50 mg tablet 50 mg PO Q12H 10/17/24 10/17/24 History nifedipine 60 mg tablet,extended 60 mg PO DAILY 10/17/24 10/17/24 History release ropinirole 1 mg tablet 1 mg PO HS 10/17/24 10/17/24 History sevelamer carbonate 800 mg tablet 800 mg PO TIDWM 10/17/24 10/17/24 History sodium bicarbonate 650 mg tablet 1,300 mg PO BID 10/17/24 10/17/24 History tamsulosin 0.4 mg capsule 0.4 mg PO Q24H 10/17/24 10/17/24 History Allergies Allergy/AdvReac Type Severity Reaction Status Date / Time No Known Allergies Allergy Unknown Unverified 09/13/06 06:57 Vital Signs Vital Signs Temp Pulse Resp BP Pulse Ox O2 Del Method 10/17/24 08:00 60 10/17/24 07:18 Room Air 10/17/24 05:40 60 17 164/67 H 97 10/17/24 05:15 60 30 H 10/17/24 05:01 60 26 H 164/65 H 95 10/17/24 05:00 60 30 H 10/17/24 04:50 60 30 H 10/17/24 04:25 60 17 139/61 97 10/17/24 02:30 60 17 147/74 H 98 10/17/24 01:37 60 24 H 96 10/17/24 01:15 60 30 H 10/17/24 01:14 98.1 F 60 17 134/102 H 97 10/17/24 01:02 60 25 H 134/102 H 97 10/17/24 01:00 63 17 10/17/24 00:53 60 24 H 10/17/24 00:30 60 26 H 10/17/24 00:20 60 24 H 10/16/24 22:52 65 21 H 157/138 H 97 10/16/24 22:45 60 23 H 10/16/24 22:30 60 16 100 10/16/24 22:00 60 20 98 10/16/24 21:45 60 16 100 10/16/24 21:30 60 20 99 10/16/24 21:15 60 18 100 10/16/24 21:13 60 13 99 10/16/24 20:52 98.4 F 60 20 116/100 H 96 Room Air Exam 2 Narrative: GENERAL APPEARANCE: elderly and mildly ill-appearing male in no acute distress HEENT: normocephalic, atraumatic, normal conjunctiva and sclera, nares patient NECK: no lymphadenopathy, thyromegaly, or JVD MOUTH: normal lips, teeth, and gums CARDIOVASCULAR: RRR, normal S1 and S2, no rub detected RESPIRATORY: clear anteriorly ABDOMEN: soft, nontender, nondistended, positive bowel sounds present EXTREMITIES: no evidence of cyanosis, clubbing, or edema; LEs with diffuse erythema noted with scattered wounds; toe skin erosions noted as well NEUROLOGICAL: alert and oriented x 3; CN II - XII intact bilaterally; no focal deficits noted Results Lab Results 10/17/24 07:20 10/17/24 07:20 Lab results: Most recent lab results Calcium 9.3 mg/dL (8.4-10.2) 10/17/24 07:20 Phosphorus 5.8 mg/dL (2.5-4.5) H 10/17/24 07:20 Magnesium 1.4 mg/dL (1.6-2.3) L 10/17/24 07:20 Urine Creatinine Cancelled 10/17/24 08:14
--- NOTE | 2024-10-17 11:39 | PC.NURSE ---
RN spoke to MD Cornejo and was told to give meds even though patient is NPO. RN is giving morning meds now.
[2024-10-17] MEDS: METOPROLOL TARTRATE 50 MG TAB PO (11:44)
[2024-10-17] MEDS: SEVELAMER CARBONATE 800 MG TABLET PO ×2 (11:44→17:08)
[2024-10-17] MEDS: SODIUM ZIRCONIUM CYCLOSILICATE 10 GM POWD.PACK PO ×2 (11:44→20:17)
[2024-10-17] MEDS: SODIUM BICARBONATE TAB 650 MG TABLET 1300 MG PO (11:44)
[2024-10-17] MEDS: oxyCODONE/ACETAMINOPHEN (*CRX) 5-325 MG TABLET 1 TABLET PO ×2 (12:14→17:08)
[2024-10-17] MEDS: SODIUM BICARBONATE 8.4% 75 MEQ in SODIUM CHLORIDE 0.45% 1,000 ML 100 MEQ IV CONT (12:15)
--- NOTE | 2024-10-17 15:45 | PC.NURSE ---
RN and calin cleaned patient up and then the order for a stool sample was ordered.
--- NOTE | 2024-10-17 16:25 | WPDCN ---
Assessment and Plan Assessment and plan (1) Acute kidney injury: Code(s): N17.9 - Acute kidney failure, unspecified Status: Acute Assessment and Plan: Admitted with acute renal failure. Nephrology is following and managing. (2) Cellulitis of both lower extremities: Code(s): L03.115 - Cellulitis of right lower limb; L03.116 - Cellulitis of left lower limb Status: Acute Assessment and Plan: Multiple toes on bilateral feet with ulcers and evidence of dry gangrene. Portions of the distal phalanx are exposed with obvious evidence of osteomyelitis. The toes are viable at this time. There is no need for emergent amputation given that all the gangrene is dry gangrene. When he presented to the emergency room maggots were noted in some of the wounds. These were all removed in the emergency room. For now will need to clean up the feet and washed thoroughly. Will need to remove any loose eschars. Wound care nurse consult will be placed. [place] the toes with Betadine and wrapped with dry gauze for now. There may be a role for using Santyl as an enzymatic debridement agent. Will wait for the wound care nurses to evaluate. Continue IV antibiotics as presently ordered. There is no obvious need for amputation of the toes or part of the foot this time but that certainly this risk in the future. (3) Osteomyelitis of toe: Code(s): M86.9 - Osteomyelitis, unspecified Status: Acute HPI Data of Consult Date/Time: 10/17/24 16:25 Requesting Physician: Laura Kelly MD Primary Care Provider: Timothy Delcid MD Consult Narrative Reason for consult: Ulcers on multiple toes bilateral feet, osteomyelitis Narrative: Oj Brandt is a 78 year old male who was brought into the [facility] after becoming unsteady and falling knee was in the bathroom. He has been getting weaker recently. He lives in his own home but his daughter is his intervention teacher. His is also in need of care from other daughter. Patient states is down these wounds on his bilateral feet for several weeks now. In the emergency room he was noted to have ulcers on the right 2nd 3rd and 4th toes. On the left foot he was noted to have ulcers on the 1st 2nd and 3rd toes. Has no other wounds on the feet. Also noted were maggots in some of the wounds on his presentation. He was also noted to be in acute renal failure with a creatinine of 5 at the time of admission. CT scan of the feet showed soft tissue defect some multiple toes with some parts of the distal phalanx on toes exposed and findings consistent with possible osteomyelitis. No abscesses were seen in the bilateral feet. His white blood cell count was elevated 18,000 on admission. Review of Systems Review of Systems: The remainder of the review of systems to include constitutional, HEENT, cardiovascular, respiratory, GI, , integumentary, musculoskeletal, endocrine, immunologic, hematologic, psychiatric, and neurologic are all negative except for which is mentioned above in the HPI. [facility] Past Medical History Medical History Pacemaker Proteinuria DJD (degenerative joint disease) CHF exacerbation Vitamin D deficiency Hyperuricemia Hypertension Hyperphosphatemia BPH (benign prostatic hyperplasia) Chronic kidney disease Chronic anemia Metabolic acidosis Surgical History Surgical History Status post placement of cardiac pacemaker Family History Family History Other Parents Social History Social History Smoking status: Former smoker Tobacco type: cigarettes Alcohol intake: former Substance use: never Substance use type: does not use Lack of Transportation: No Lack of Food: Never True Current Housing: I Have Housing Concerned About Future Housing: No Difficulty Paying Gas/Electric Bills: No Difficulty Paying for Meds: No Currently Unemployed: No Education: Bachelor's Degree Difficulty w/ Childcare or Family Care: No Spiritual care concerns: No Meds Home Medications and Allergies Home Medications ?Medication ?Instructions ?Recorded ?Confirmed ?Type allopurinol 100 mg tablet 100 mg PO Q8H 10/17/24 10/17/24 History calcitriol 0.25 mcg capsule 0.25 mcg PO TID 10/17/24 10/17/24 History ergocalciferol (vitamin D2) 1,250 1,250 mcg PO WEEKLY 10/17/24 10/17/24 History mcg (50,000 unit) capsule furosemide 20 mg tablet 20 mg PO DAILY 10/17/24 10/17/24 History gabapentin 300 mg capsule 300 mg PO Q12H 10/17/24 10/17/24 History lisinopril 20 mg tablet 20 mg PO Q12H 10/17/24 10/17/24 History metoprolol tartrate 50 mg tablet 50 mg PO Q12H 10/17/24 10/17/24 History nifedipine 60 mg tablet,extended 60 mg PO DAILY 10/17/24 10/17/24 History release ropinirole 1 mg tablet 1 mg PO HS 10/17/24 10/17/24 History sevelamer carbonate 800 mg tablet 800 mg PO TIDWM 10/17/24 10/17/24 History sodium bicarbonate 650 mg tablet 1,300 mg PO BID 10/17/24 10/17/24 History tamsulosin 0.4 mg capsule 0.4 mg PO Q24H 10/17/24 10/17/24 History Allergies Allergy/AdvReac Type Severity Reaction Status Date / Time No Known Allergies Allergy Unknown Unverified 09/13/06 06:57 Vital Signs Vital Signs - 24 hr 10/16/24 20:52 10/16/24 21:13 10/16/24 21:15 Temperature 36.9 C Pulse Rate 60 60 60 Respiratory Rate 20 13 18 Blood Pressure 116/100 H Pulse Oximetry 96 99 100 Oxygen Delivery Room Air 10/16/24 21:30 10/16/24 21:45 10/16/24 22:00 Temperature Pulse Rate 60 60 60 Respiratory Rate 20 16 20 Blood Pressure Pulse Oximetry 99 100 98 Oxygen Delivery 10/16/24 22:30 10/16/24 22:45 10/16/24 22:52 Temperature Pulse Rate 60 60 65 Respiratory Rate 16 23 H 21 H Blood Pressure 157/138 H Pulse Oximetry 100 97 Oxygen Delivery 10/17/24 00:20 10/17/24 00:30 10/17/24 00:53 Temperature Pulse Rate 60 60 60 Respiratory Rate 24 H 26 H 24 H Blood Pressure Pulse Oximetry Oxygen Delivery 10/17/24 01:00 10/17/24 01:02 10/17/24 01:14 Temperature 36.7 C Pulse Rate 63 60 60 Respiratory Rate 17 25 H 17 Blood Pressure 134/102 H 134/102 H Pulse Oximetry 97 97 Oxygen Delivery 10/17/24 01:15 10/17/24 01:37 10/17/24 02:30 Temperature Pulse Rate 60 60 60 Respiratory Rate 30 H 24 H 17 Blood Pressure 147/74 H Pulse Oximetry 96 98 Oxygen Delivery 10/17/24 04:25 10/17/24 04:50 10/17/24 05:00 Temperature Pulse Rate 60 60 60 Respiratory Rate 17 30 H 30 H Blood Pressure 139/61 Pulse Oximetry 97 Oxygen Delivery 10/17/24 05:01 10/17/24 05:15 10/17/24 05:40 Temperature Pulse Rate 60 60 60 Respiratory Rate 26 H 30 H 17 Blood Pressure 164/65 H 164/67 H Pulse Oximetry 95 97 Oxygen Delivery 10/17/24 07:18 10/17/24 08:00 10/17/24 08:10 Temperature Pulse Rate 60 Respiratory Rate Blood Pressure Pulse Oximetry Oxygen Delivery Room Air Room Air 10/17/24 11:44 10/17/24 12:00 10/17/24 13:46 Temperature 36.6 C Pulse Rate 60 60 60 Respiratory Rate 18 Blood Pressure 114/52 L Pulse Oximetry 95 Oxygen Delivery Exam Const: General: comfortable and no acute distress HENMT: Ears: TM's normal bilaterally Face/Nose/Sinus: Normal nares present Eyes: General: appearance normal, both eyes and all related structures Sclera: sclerae normal EOM: EOMs intact bilaterally Neck: Neck: supple and no JVD Resp: Effort & Inspection: normal respiratory effort Auscultation: clear to auscultation bilaterally Cardio: Rate: regular rate Rhythm: regular rhythm GI: GI Palp: Yes Soft to palpation, No Firmness to palpation present (GI), No Tenderness to palpation present (GI), No Guarding due to palpation present (GI) and No Hernia present Skin: General skin exam: normal color and no rashes or lesions noted Neuro: General: gait normal Speech: normal speech Sensory Exam: normal sensation Extrem: Other: On the left foot the great toe and 2nd and 3rd toes show superficial ulcers with crusty eschars. Minimal erythema is noted. No weight gangrene is noted. No other wounds left foot. On the right foot there is soft tissue defect and ulcers on the 2nd 3rd and 4th toes. There on the dorsal surface. On some of the toes there may be exposed bone at the tip of the toes. Again these are dry areas of gangrene without evidence of wet gangrene. All the toes presently still appeared to be viable. Both feet are viable but no palpable pulses are noted. Psych: Mental Status: mental status grossly normal Affect: normal affect Results Labs 10/17/24 07:20 10/17/24 07:20 Labs: Short CBC 10/16/24 10/17/24 Range/Units 22:48 07:20 WBC 15.4 H 18.2 H (4.5-10.0) K/mm3 Hgb 8.8 L 9.0 L (14.0-18.0) g/dL Hct 29.5 L 30.2 L (42.0-52.0) % Plt Count 336 313 (150-375) k/mm3 BMP 10/16/24 10/17/24 10/17/24 21:34 01:50 07:20 Sodium 136 L 139 136 L Potassium 5.9 H 4.2 5.9 H Chloride 108 H 120 H 112 H Carbon Dioxide 15 L 10 L 12 L BUN 75 H 57 H D 72 H D Creatinine 5.61 H 3.79 H 5.33 H Glucose 127 H 69 126 H Calcium 9.3 6.6 L 9.3 Cardiac Enzymes 10/16/24 Range/Units 21:34 Total Creatine Kinase 235 H (55-170) U/L Liver Function 10/16/24 10/17/24 Range/Units 21:34 07:20 Total Bilirubin 0.3 0.4 (0.2-1.3) mg/dL AST 37 31 (17-59) U/L ALT 38 33 (6-50) U/L Alkaline Phosphatase 101 102 (38-126) U/L Albumin 3.3 L 3.0 L (3.5-5.1) g/dL Urine 10/17/24 Range/Units 03:30 Urine Color Yellow (Yellow) Urine Appearance Cloudy H (Clear) Urine pH 5.0 (5.0-9.0) Ur Specific [place] 1.015 (1.001-1.035) Urine Protein 2+ H (Negative) mg/dL Urine Glucose (UA) Negative (Negative) mg/dL Imaging Radiologist's impression: CT Scan Report Signed Patient: Oj Brandt : 1945 MR#: [id number] Age: 78 Acct:[id number] Loc: [facility] ADM Date: 10/16/24Attending Dr: Ordering Physician: Nancy Hoang PA-C Date of Service: 10/16/24 Procedure(s): CT LE LT wo con; CT LE RT wo con Accession Number(s): [id number]; [id number] cc: Timothy Delcid MD; Nancy Hoang PA-C~ CT OF right and left lower extremities EXAMINATION: CT LE RT wo con, CT LE LT wo con DATE: 10/16/2024 23:30 (accession [id number]), 10/16/2024 23:31 (accession [id number]) INDICATION: Rule out osteomyelitis. TECHNIQUE: Computed tomography (CT) of the right and left lower extremities was performed without intravenous contrast. Automated exposure control and iterative reconstruction technique were employed. The dose-length product was 2718.31 (accession [id number]), 2093.35 (accession [id number]) mGy-cm. COMPARISON: None FINDINGS: Osteopenia. Bilateral sacroiliitis. Bilateral hip osteoarthritis. Scattered pelvic enthesopathy. Mild degenerative changes in the bilateral knees. Moderate degenerative changes in the bilateral ankles, multiple midfoot joints, and the bilateral MTP joints. Plantar and Achilles enthesopathy. Right toes: Skin defect over the right third toe, with apparent exposure of the distal end of the third proximal phalanx, without definite erosion. Left toes: Skin defect over the left second toe, with possible exposure of the distal end of the second proximal phalanx and early erosions suspected on either side of the joint. Left second distal phalanx amputation. Possible exposure of the tip of the left second middle phalanx, without erosion. Skin defect over the PIP joint of the left third toe, with possible bone exposure but no erosion. Possible skin defect at the left third DIP joint, with possible bone exposure, and subjacent erosion at the distal aspect of the left third middle phalanx. Atherosclerotic calcifications. Small left and moderate right fat-containing inguinal hernias. Left hydrocele. Subcutaneous edema extending from the level of mid thigh down to the feet. Dermal thickening over the lower leg and dorsal feet. IMPRESSION: Skin defect over the right second toe, with possible bone exposure, without focal erosion. Skin defect over the left second PIP joint, with suggestion of early erosions on either side of the joint concerning for infection with joint space involvement. Skin defect over the left third DIP joint, with early erosion concerning for infection in the third middle phalanx and possible DIP joint involvement. Skin defects with possible exposure of bone at the distal ends of the left second middle phalanx and left third proximal phalanx, without definite erosion. Dermal thickening and subcutaneous edema in the bilateral feet and lower legs, correlate for clinical findings of cellulitis. No definite fluid collection is identified, however this determination is limited without contrast. Consider MRI of the feet without and with contrast for further evaluation. Reviewed, dictated and finalized at location K. Please be advised this is a medical document. It is intended for elol-eb-wlns communication. It is written in medical language and may contain unfamiliar abbreviations or verbiage. Medical documents are intended to carry relevant information, facts as evident, and the clinical opinion of the practitioner at the time of the encounter. This report may have been done utilizing a voice recognition system. Attempts have been made to correct errors. However, there may be uncorrected grammatical, spelling, and recognition errors present. The file time of this note does not necessarily represent the time of service. Dictated By: Tolu Paul MD 10/16/24 2339 Signed By: <Electronically signed by Tolu Paul MD in [place]> 10/17/24 0046
[2024-10-17 17:44] LABS: Immature Reticulocyte Fraction 13.8 % (3.0-15.9); Reticulocyte Hemoglobin Conten 31.3 pg (28.2-36.6); Reticulocytes Absolute 0.05 10^6/uL (0.02-0.10)
[2024-10-17 18:05] LABS: Iron 30 ug/dL (49-181)
[2024-10-17 18:07] LABS: Albumin Level 3.0 g/dL (3.5-5.1); Anion Gap 11 mmol/L (4-12); Blood Urea Nitrogen 73 mg/dL (9-20); Calcium 9.2 mg/dL (8.4-10.2); Carbon Dioxide 10 mmol/L (22-30); Chloride 114 mmol/L (98-107); Estimated CRCL calculation 15 ml/min; Estimated Glomerular Filt Rate 11; Glucose 96 mg/dL (65-110); Potassium 5.6 mmol/L (3.4-5.0); Sodium 135 mmol/L (137-145)
[2024-10-17 18:15] LABS: Percent Iron Saturation 16 % (20-50)
[2024-10-17 18:41] LABS: Ferritin 423.00 ng/mL (11.1-264)
[2024-10-17] MEDS: CEFEPIME 1 GM in SODIUM CHLORIDE 0.9% IV 50 ML 100 ML IVPB (22:23)
[2024-10-18] VITALS (11 sets, daily range): BP systolic 104–119; BP diastolic 43–55; PULSE 59–80; RESP 18–20; TEMP 35.9–36.6; O2SAT 93–97
[2024-10-18] MEDS: metroNIDAZOLE 500 MG/ISO 100ML 500 MG/100 ML BAG 100 MG IVPB ×3 (00:06→15:22)
[2024-10-18] MEDS: SODIUM BICARBONATE 8.4% 75 MEQ in SODIUM CHLORIDE 0.45% 1,000 ML 100 MEQ IV CONT ×2 (00:52→17:38)
[2024-10-18] MEDS: VANCOMYCIN 1,750 MG/NS 500 ML 1,750 MG/500 ML BAG 250 MG IVPB (02:01)
[2024-10-18] MEDS: oxyCODONE/ACETAMINOPHEN (*CRX) 5-325 MG TABLET 1 TABLET PO ×2 (04:39→21:09)
[2024-10-18 05:32] LABS: Hematocrit 27.2 % (42.0-52.0); Hemoglobin 8.1 g/dL (14.0-18.0); Immature Granulocyte Percent A 1.4 % (0-0.5); Lymphocytes Absolute Auto 0.88 K/mm3 (0.9-3.2); Mean Corpuscular HGB Conc 29.8 g/dl (32-36); Mean Corpuscular Hemoglobin 31.8 pg (26-34); Mean Corpuscular Volume 106.7 fl (80-100); Nucleated Red Blood Cells Absolute Auto 0.000 K/mm3 (0.0-0.012); Nucleated Red Blood Cells Perc 0.0 % (0.0-0.2); Platelet Count Result 266 k/mm3 (150-375); Red Blood Count 2.55 M/mm3 (4.6-6.20); White Blood Count 12.1 K/mm3 (4.5-10.0)
[2024-10-18 05:47] LABS: Albumin Level 2.7 g/dL (3.5-5.1); Anion Gap 10 mmol/L (4-12); Blood Urea Nitrogen 74 mg/dL (9-20); Calcium 8.9 mg/dL (8.4-10.2); Carbon Dioxide 13 mmol/L (22-30); Chloride 111 mmol/L (98-107); Estimated CRCL calculation 15 ml/min; Estimated Glomerular Filt Rate 12; Glucose 103 mg/dL (65-110); Magnesium 1.4 mg/dL (1.6-2.3); Potassium 5.5 mmol/L (3.4-5.0); Sodium 134 mmol/L (137-145)
[2024-10-18 05:57] LABS: Anisocytosis 1+; Hypochromasia 1+; Macrocytosis 1+ (NORMAL)
[2024-10-18 05:58] LABS: Burr Cells 1+; Schistocytes None Seen
[2024-10-18] MEDS: SODIUM BICARBONATE TAB 650 MG TABLET 1300 MG PO ×2 (09:09→16:58)
[2024-10-18] MEDS: METOPROLOL TARTRATE 50 MG TAB PO ×2 (09:09→21:08)
[2024-10-18] MEDS: SEVELAMER CARBONATE 800 MG TABLET PO ×3 (09:09→16:58)
[2024-10-18] MEDS: GABAPENTIN 100 MG CAPSULE PO ×2 (09:12→21:09)
--- NOTE | 2024-10-18 10:50 | P.PNNP_ITS ---
Progress Note: A&P Assessment and Plan (1) Acute kidney injury: Code(s): N17.9 - Acute kidney failure, unspecified Status: Acute Assessment and Plan: * slow improvement noted * as evidence of by admission and AM labs (on 10/17) * repeat labs done in ER (10/17 at 1:50am was likely a lab error) * suspect multifactorial etiology: * infection/early sepsis [UTI + cellulitis +/- osteomyelitis(?)] * pre-renal factors * use of NATHALIE-I prior to admission * use of diuretics prior to admission * other(?) * evaluation to date noted: * UA suggests infection * urine eosinophils negative * urine electrolytes prerenal (FeUrea) * moderate proteinuria * CPK mildy elevated but not enough to affect kidney function * renal ultrasound c/w CKD * on bicarb fluids * remains at risk for [employer]/hemodialysis * follow trend of repeat labs and UOP (2) Stage 4 chronic kidney disease: Code(s): N18.4 - Chronic kidney disease, stage 4 (severe) Status: Acute Assessment and Plan: * per patient, GFR has fluctuated to extremes * per outpatient labs done at [facility] (by verbal report): * 09/07/24 - creatinine 3.01mg/dl (GFR 20) * 08/03/24 - creatinine 2.44mg/dl (GFR 26) * presumably due to hypertension, CHF(?), vascular disease, and age-related change * follows with Dr. Arian Gleason for management of his chronic kidney disease (3) Hyperkalemia: Code(s): E87.5 - Hyperkalemia Status: Acute Assessment and Plan: * due to KURTIS, NATHALIE-I use, and acidosis * s/p medical management in the ER * redose lokelri today since K+ still elevated * follow trend of repeat K+ (4) Metabolic acidosis: Code(s): E87.20 - Acidosis, unspecified Status: Acute Assessment and Plan: * acute on chronic * on outpatient sodium bicarbonate * acute worsening secondary to KURTIS and IVF resuscitation * added bicarbonate to IVFs * remains on oral sodium bicarbonate * follow CO2 levels (5) Cellulitis of both lower extremities: Code(s): L03.115 - Cellulitis of right lower limb; L03.116 - Cellulitis of left lower limb Status: Acute Assessment and Plan: * as noted on presentation * complicated by multiple skin wounds/defects/erosions * possible osteomyelitis(?) * CT of bilateral lower extremities noted: * skin defect over the right second toe, with possible bone exposure, without focal erosion * skin defect over the left second PIP joint, with suggestion of early erosions on either side of the joint concerning for infection with joint space involvement * skin defect over the left third DIP joint, with early erosion concerning for infection in the third middle phalanx and possible DIP joint involvement * skin defects with possible exposure of bone at the distal ends of the left second middle phalanx and left third proximal phalanx, without definite erosion * dermal thickening and subcutaneous edema in the bilateral feet and lower legs, correlate for clinical findings of cellulitis * no definite fluid collection is identified, however this determination is limited without contrast * may need MRI for further evaluation * Surgery recommendations noted * follow culture data * local wound care * on antibiotics (6) UTI (urinary tract infection): Qualifiers: Hematuria presence: with hematuria Urinary tract infection type: acute cystitis Qualified Code(s): N30.01 - Acute cystitis with hematuria Code(s): N39.0 - Urinary tract infection, site not specified Status: Acute Assessment and Plan: * as suggested by admission UA * follow culture data * on antibiotics (7) Anemia: Code(s): D64.9 - Anemia, unspecified Status: Acute Assessment and Plan: * due to KURTIS, CKD, and acute illness * anemia studies noted: * evidence of iron deficiency * although not a candidate for IV iron given acute infection * may need MURRAY * follow trend of H/H (8) Generalized weakness: Code(s): R53.1 - Weakness Status: Acute Assessment and Plan: * s/p fall prior to admission * suspect due to acute illness (infection, KURTIS, hyperkalemia, acidosis...etc) * PT/OT as tolerated Will continue to follow. L Subjective Date/time seen: 10/18/24 10:50 Interval history: Follow-up for acute kidney injury/acute renal failure on chronic kidney disease. Renal function/creatinine doing somewhat better with some improvement in urine output but still with metabolic acidosis and mildly elevated K+ by recent labs; some on/off pain in his lower extremities noted; no apparent distress voiced at the time of my visit. Exam 2 Narrative: General: elderly but WD/WN male in NAD Heart: normal S1 and S2; no rub Lungs: clear anteriorly Abdomen: soft, nontender, nondistended, positive bowel sounds Extremities: no cyanosis or clubbing; + erythema present Skin: bilateral toe ulcerations/wounds noted Objective Data Vital Signs Vital Signs: Vital Signs Temp Pulse Resp BP Pulse Ox O2 Del Method 10/18/24 09:09 80 10/18/24 06:00 97.6 F 59 L 20 104/55 L 95 10/18/24 04:00 60 10/18/24 00:00 60 10/17/24 22:15 98.1 F 62 16 120/77 92 10/17/24 20:00 60 10/17/24 20:00 Room Air 10/17/24 16:00 60 10/17/24 13:46 97.9 F 60 18 114/52 L 95 10/17/24 12:00 60 Intake/Output Intake/Output: Intake & Output 10/15/24 10/16/24 10/17/24 10/18/24 23:59 23:59 23:59 23:59 Intake Total 4215 450 Output Total 0 200 450 Balance 0 4015 0 Meds/Results Medications: Active Medications Generic Name Dose Route Start Last Admin Trade Name Freq PRN Reason Stop Dose Admin Acetaminophen 650 mg 10/17/24 03:42 Acetaminophen 325 Mg Tablet PO Q4H PRN Mild Pain (1-3) or Fever Dextrose 12.5 gm 10/16/24 22:30 10/17/24 02:00 Dextrose 50% 25 Gm/50 Ml Syringe IV PUSH 12.5 gm PRN PRN Administration Hypoglycemia Protocol Gabapentin 100 mg 10/18/24 09:00 10/18/24 09:12 Gabapentin 100 Mg Capsule PO 100 mg Q12HR TANO Administration Glucagon 1 mg 10/16/24 22:30 Glucagon For Inj 1 Mg Vial IM PRN PRN Hypoglycemia Protocol Glucose 15 gm 10/16/24 22:30 Glucose Oral Gel 15 Gm Of Glucse In 37.5 Gm Tube PO PRN PRN Hypoglycemia Protocol Hydralazine HCl 50 mg 10/17/24 09:00 10/18/24 06:03 Hydralazine Hcl 50 Mg Tablet PO Not Given Q8HR TANO Dextrose 1,000 mls @ 100 mls/hr 10/16/24 22:30 Dextrose 5% 1,000 Ml IVPB PRN PRN Hypoglycemia Protocol Cefepime HCl 1 gm/ Sodium 50 mls @ 100 mls/hr 10/17/24 23:00 10/17/24 22:23 Chloride IVPB 100 mls/hr Q24H TANO Administration Metronidazole 500 mg in 100 mls @ 100 mls/hr 10/17/24 08:00 10/18/24 09:08 Flagyl 500 Mg/Iso Soln 100 Ml IVPB 100 mls/hr Q8H TANO Administration Sodium Bicarbonate 75 meq/ 1,075 mls @ 100 mls/hr 10/17/24 11:10 10/18/24 00:52 Sodium Chloride IV CONT 100 mls/hr .[id number] TANO Administration Metoprolol Tartrate 50 mg 10/17/24 09:00 10/18/24 09:09 Metoprolol Tartrate 50 Mg Tab PO 50 mg Q12H TANO Administration Morphine Sulfate 4 mg 10/17/24 03:42 Morphine Sulfate (*Crx) 4 Mg/Ml Inj IV PUSH Q2H PRN Pain Rated 7-10 Nifedipine 60 mg 10/17/24 09:00 10/17/24 11:43 Nifedipine 30 Mg Tab.Er.24 PO 60 mg DAILY TANO Administration Ondansetron HCl 4 mg 10/17/24 03:42 Ondansetron Inj 4 Mg/2 Ml Vial IV PUSH Q4H PRN Nausea Oxycodone/Acetaminophen 1 tablet 10/17/24 11:42 10/18/24 04:39 Oxycodone/Acetaminophen (*Crx) 5-325 Mg Tablet PO 1 tablet Q4H PRN Administration Pain Rated 7-10 Perflutren Lipid Microsphere 0 ml 10/17/24 14:41 Perflutren Lipid Microspheres 1.5 Ml Vial Diluted To 10 Ml Total Volume IV PUSH 10/20/24 14:41 ONCE PRN adequate visualization Protocol Ropinirole HCl 1 mg 10/17/24 21:00 10/17/24 22:21 Ropinirole Hcl 1 Mg Tablet PO 1 mg HS TANO Administration Sevelamer Carbonate 800 mg 10/17/24 12:00 10/18/24 09:09 Sevelamer Carbonate 800 Mg Tablet PO 800 mg TIDWM TANO Administration Sodium Bicarbonate 1,300 mg 10/17/24 09:00 10/18/24 09:09 Sodium Bicarbonate Tab 650 Mg Tablet PO 1,300 mg BID TANO Administration Sodium Zirconium Cyclosilicate 10 gm 10/18/24 10:00 Sodium Zirconium Cyclosilicate 10 Gm Powd.Pack PO 10/18/24 18:01 BID@1000,1800 TANO Vancomycin HCl 1 each 10/16/24 23:25 Vancomycin For Acute Kidney Injury IVPB PRN PRN Vancomycin Protocol Radiology Results: ITS Impressions Lower Extremity CT 10/16/24 23:39 IMPRESSION: Skin defect over the right second toe, with possible bone exposure, without focal erosion. Skin defect over the left second PIP joint, with suggestion of early erosions on either side of the joint concerning for infection with joint space involvement. Skin defect over the left third DIP joint, with early erosion concerning for infection in the third middle phalanx and possible DIP joint involvement. Skin defects with possible exposure of bone at the distal ends of the left second middle phalanx and left third proximal phalanx, without definite erosion. Dermal thickening and subcutaneous edema in the bilateral feet and lower legs, correlate for clinical findings of cellulitis. No definite fluid collection is identified, however this determination is limited without contrast. Consider MRI of the feet without and with contrast for further evaluation. Lower Extremity CT 10/16/24 23:39 IMPRESSION: Skin defect over the right second toe, with possible bone exposure, without focal erosion. Skin defect over the left second PIP joint, with suggestion of early erosions on either side of the joint concerning for infection with joint space involvement. Skin defect over the left third DIP joint, with early erosion concerning for infection in the third middle phalanx and possible DIP joint involvement. Skin defects with possible exposure of bone at the distal ends of the left second middle phalanx and left third proximal phalanx, without definite erosion. Dermal thickening and subcutaneous edema in the bilateral feet and lower legs, correlate for clinical findings of cellulitis. No definite fluid collection is identified, however this determination is limited without contrast. Consider MRI of the feet without and with contrast for further evaluation. Renal Ultrasound 10/17/24 19:48 IMPRESSION: Bilateral cortical scarring. Mild right pelviectasis. Simple left renal cyst. Chest X-Ray 10/18/24 07:48 IMPRESSION: 1. Mild but increasing opacities in the left lower lung zone consistent with small left pleural effusion and worsening atelectasis, pneumonia, asymmetric mild pulmonary edema or some combination thereof. 2. Borderline heart size. Labs Labs: Laboratory Tests 10/18/24 04:54 10/18/24 04:54 Calcium 8.9 Phosphorus 6.2 H Magnesium 1.4 L Albumin 2.7 L
[2024-10-18] MEDS: SODIUM ZIRCONIUM CYCLOSILICATE 10 GM POWD.PACK PO ×2 (12:11→18:52)
--- NOTE | 2024-10-18 13:00 | P.PNIM_ITS ---
Progress Note: A&P Assessment and Plan (1) Acute renal failure: Qualifiers: Acute renal failure type: unspecified Qualified Code(s): N17.9 - Acute kidney failure, unspecified Code(s): N17.9 - Acute kidney failure, unspecified Status: Acute (2) Stage 4 chronic kidney disease: Code(s): N18.4 - Chronic kidney disease, stage 4 (severe) Status: Acute (3) Hyperkalemia: Code(s): E87.5 - Hyperkalemia Status: Acute (4) Cellulitis of both lower extremities: Code(s): L03.115 - Cellulitis of right lower limb; L03.116 - Cellulitis of left lower l imb Status: Acute (5) Osteomyelitis of toe: Code(s): M86.9 - Osteomyelitis, unspecified Status: Acute (6) Dry gangrene: Code(s): I96 - Gangrene, not elsewhere classified Status: Acute (7) Infestation, maggots: Code(s): B87.9 - Myiasis, unspecified Status: Acute (8) Generalized weakness: Code(s): R53.1 - Weakness Status: Acute (9) Anemia: Code(s): D64.9 - Anemia, unspecified Status: Acute (10) UTI (urinary tract infection): Qualifiers: Hematuria presence: with hematuria Urinary tract infection type: acute cystitis Qualified Code(s): N30.01 - Acute cystitis with hematuria Code(s): N39.0 - Urinary tract infection, site not specified Status: Acute Plan 78-year-old male with history of CKD stage [address] Gleason, hypertension, chronic anemia, BPH presents to [facility] ER on 10/17/2024. Brought to the ED by EMS. He lives at home with his and moshe ramos and they take care of him. He reports he fell off the toilet and had difficulty getting up off the ground. Reports being weak. Says he has wounds to his feet and toes for a month now. Maggots were found in his toes. Exposed bone. BUN on admission 75, serum creatinine 5.61. [facility] reports serum creatinine in July to be 2.[address] of bilateral lower extremities showed skin defects, erosion, bone exposure. Cultures were taken, broad-spectrum antibiotics started. General surgery and nephrology consulted. He had hyperkalemia and he was given IV fluids. ----- The maggots were cleaned out. General surgery consultation completed. Obvious evidence of osteomyelitis dry gangrene. At this time toes are viable. Advised wound care/wound consultation. Continue cefepime, metronidazole, vancomycin. Follow-up urine and blood cultures. Pending LINDSAY studies. Nephrology continues to follow for acute renal failure. Patient making urine. Serum creatinine slowly improving. Potassium elevated at 5.5. Started on Lokelma 10 g p.o. b.i.d.. Repeat BMP this evening. Continue sodium bicarbonate set D5 mEq in sodium chloride at 100 cc/hour. Continue sodium bicarbonate tabs 1300 mg p.o. b.i.d.. Continue Renvela. 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 On 10/18/2024 restart his [employer] gabapentin at lower dose 100 mg p.o. b.i.d. PT OT evaluations ongoing for weakness. Patient wishes to be full code. Diabetic diet and renal dialysis diet. Hold pharmacological prophylaxis due to anemia. Hold SCDs/stockings due to bilateral lower extremity wounds. Subjective Date/time seen: 10/18/24 13:00 Interval history: No major acute overnight events. Patient complains of pain in his heels has he has not taken his gabapentin. Denies shortness of breath, chest pain. He has been making urine. Review of Systems Review of Systems: All systems reviewed & are unremarkable except as noted in HPI and below (Subjective) Exam Const: General: comfortable and no acute distress Other: A&O x3 HENMT: Mouth: Yes moist mucous membranes Eyes: Pupils: Equal, round and reactive pupils present Neck: Neck: supple Resp: Effort & Inspection: normal respiratory effort Auscultation: clear to auscultation bilaterally Cardio: Rate: regular rate Rhythm: regular rhythm GI: Inspection: non-distended GI Palp: Yes Soft to palpation Extrem: Other: No active discharge from wounds Objective Data Vital Signs Vital Signs: Vital Signs - 24 hr 10/17/24 13:46 10/17/24 16:00 10/17/24 20:00 Temperature 97.9 F Pulse Rate 60 60 Respiratory Rate 18 Blood Pressure 114/52 L Pulse Oximetry 95 Oxygen Delivery Room Air 10/17/24 20:00 10/17/24 22:15 10/18/24 00:00 Temperature 98.1 F Pulse Rate 60 62 60 Respiratory Rate 16 Blood Pressure 120/77 Pulse Oximetry 92 Oxygen Delivery 10/18/24 04:00 10/18/24 06:00 10/18/24 09:09 Temperature 97.6 F Pulse Rate 60 59 L 80 Respiratory Rate 20 Blood Pressure 104/55 L Pulse Oximetry 95 Oxygen Delivery Intake/Output Intake/Output: Intake & Output 10/15/24 10/16/24 10/17/24 10/18/24 23:59 23:59 23:59 23:59 Intake Total 4215 450 Output Total 0 200 450 Balance 0 4015 0 Meds/Results Medications: Active Medications Generic Name Dose Route Start Last Admin Trade Name Freq PRN Reason Stop Dose Admin Acetaminophen 650 mg 10/17/24 03:42 Acetaminophen 325 Mg Tablet PO Q4H PRN Mild Pain (1-3) or Fever Dextrose 12.5 gm 10/16/24 22:30 10/17/24 02:00 Dextrose 50% 25 Gm/50 Ml Syringe IV PUSH 12.5 gm PRN PRN Administration Hypoglycemia Protocol Gabapentin 100 mg 10/18/24 09:00 10/18/24 09:12 Gabapentin 100 Mg Capsule PO 100 mg Q12HR TANO Administration Glucagon 1 mg 10/16/24 22:30 Glucagon For Inj 1 Mg Vial IM PRN PRN Hypoglycemia Protocol Glucose 15 gm 10/16/24 22:30 Glucose Oral Gel 15 Gm Of Glucse In 37.5 Gm Tube PO PRN PRN Hypoglycemia Protocol Hydralazine HCl 50 mg 10/17/24 09:00 10/18/24 06:03 Hydralazine Hcl 50 Mg Tablet PO Not Given Q8HR TANO Dextrose 1,000 mls @ 100 mls/hr 10/16/24 22:30 Dextrose 5% 1,000 Ml IVPB PRN PRN Hypoglycemia Protocol Cefepime HCl 1 gm/ Sodium 50 mls @ 100 mls/hr 10/17/24 23:00 10/17/24 22:23 Chloride IVPB 100 mls/hr Q24H TANO Administration Metronidazole 500 mg in 100 mls @ 100 mls/hr 10/17/24 08:00 10/18/24 09:08 Flagyl 500 Mg/Iso Soln 100 Ml IVPB 100 mls/hr Q8H TANO Administration Sodium Bicarbonate 75 meq/ 1,075 mls @ 100 mls/hr 10/17/24 11:10 10/18/24 00:52 Sodium Chloride IV CONT 100 mls/hr .[id number] TANO Administration Metoprolol Tartrate 50 mg 10/17/24 09:00 10/18/24 09:09 Metoprolol Tartrate 50 Mg Tab PO 50 mg Q12H TANO Administration Morphine Sulfate 4 mg 10/17/24 03:42 Morphine Sulfate (*Crx) 4 Mg/Ml Inj IV PUSH Q2H PRN Pain Rated 7-10 Nifedipine 60 mg 10/17/24 09:00 10/17/24 11:43 Nifedipine 30 Mg Tab.Er.24 PO 60 mg DAILY TANO Administration Ondansetron HCl 4 mg 10/17/24 03:42 Ondansetron Inj 4 Mg/2 Ml Vial IV PUSH Q4H PRN Nausea Oxycodone/Acetaminophen 1 tablet 10/17/24 11:42 10/18/24 04:39 Oxycodone/Acetaminophen (*Crx) 5-325 Mg Tablet PO 1 tablet Q4H PRN Administration Pain Rated 7-10 Perflutren Lipid Microsphere 0 ml 10/17/24 14:41 Perflutren Lipid Microspheres 1.5 Ml Vial Diluted To 10 Ml Total Volume IV PUSH 10/20/24 14:41 ONCE PRN adequate visualization Protocol Ropinirole HCl 1 mg 10/17/24 21:00 10/17/24 22:21 Ropinirole Hcl 1 Mg Tablet PO 1 mg HS TANO Administration Sevelamer Carbonate 800 mg 10/17/24 12:00 10/18/24 12:11 Sevelamer Carbonate 800 Mg Tablet PO 800 mg TIDWM TANO Administration Sodium Bicarbonate 1,300 mg 10/17/24 09:00 10/18/24 09:09 Sodium Bicarbonate Tab 650 Mg Tablet PO 1,300 mg BID TANO Administration Sodium Zirconium Cyclosilicate 10 gm 10/18/24 10:00 10/18/24 12:11 Sodium Zirconium Cyclosilicate 10 Gm Powd.Pack PO 10/18/24 18:01 10 gm BID@1000,1800 TANO Administration Vancomycin HCl 1 each 10/16/24 23:25 Vancomycin For Acute Kidney Injury IVPB PRN PRN Vancomycin Protocol Radiology Results: ITS Impressions Lower Extremity CT 10/16/24 23:39 IMPRESSION: Skin defect over the right second toe, with possible bone exposure, without focal erosion. Skin defect over the left second PIP joint, with suggestion of early erosions on either side of the joint concerning for infection with joint space involvement. Skin defect over the left third DIP joint, with early erosion concerning for infection in the third middle phalanx and possible DIP joint involvement. Skin defects with possible exposure of bone at the distal ends of the left second middle phalanx and left third proximal phalanx, without definite erosion. Dermal thickening and subcutaneous edema in the bilateral feet and lower legs, correlate for clinical findings of cellulitis. No definite fluid collection is identified, however this determination is limited without contrast. Consider MRI of the feet without and with contrast for further evaluation. Lower Extremity CT 10/16/24 23:39 IMPRESSION: Skin defect over the right second toe, with possible bone exposure, without focal erosion. Skin defect over the left second PIP joint, with suggestion of early erosions on either side of the joint concerning for infection with joint space involvement. Skin defect over the left third DIP joint, with early erosion concerning for infection in the third middle phalanx and possible DIP joint involvement. Skin defects with possible exposure of bone at the distal ends of the left se cond middle phalanx and left third proximal phalanx, without definite erosion. Dermal thickening and subcutaneous edema in the bilateral feet and lower legs, correlate for clinical findings of cellulitis. No definite fluid collection is identified, however this determination is limited without contrast. Consider MRI of the feet without and with contrast for further evaluation. Renal Ultrasound 10/17/24 19:48 IMPRESSION: Bilateral cortical scarring. Mild right pelviectasis. Simple left renal cyst. Chest X-Ray 10/18/24 07:48 IMPRESSION: 1. Mild but increasing opacities in the left lower lung zone consistent with small left pleural effusion and worsening atelectasis, pneumonia, asymmetric mild pulmonary edema or some combination thereof. 2. Borderline heart size. Labs Labs: Laboratory Results - last 24 hr 10/17/24 10/17/24 10/17/24 16:30 17:37 22:23 WBC RBC Hgb Hct MCV MCH MCHC RDW Plt Count MPV Immature Gran % (Auto) Neut % (Auto) Lymph % (Auto) [place] % (Auto) Eos % (Auto) Baso % (Auto) Lymph # (Auto) [place] # (Auto) Eos # (Auto) Baso # (Auto) Abs Immat Gran (auto) Absolute Neuts (auto) Absolute Nucleated RBC Band Neutrophils % Nucleated RBC % Platelet Estimate Clumped Platelets Hypochromasia Anisocytosis Macrocytosis [place] Cells Schistocytes Absolute Retic 0.05 Percent Retic 1.84 Immature Retic Fraction 13.8 Retic Hgb Content 31.3 Sodium 135 L Potassium 5.6 H Chloride 114 H Carbon Dioxide 10 L Anion Gap 11 BUN 73 H Creatinine 5.05 H Estim Creat Clear Calc 15 Estimated GFR 11 L Glucose 96 POC Capillary Glucose 77 108 H Calcium 9.2 Phosphorus 6.2 H Magnesium Iron 30 L TIBC 187 L % Saturation 16 L Ferritin 423.00 H Albumin 3.0 L Random Vancomycin 10/18/24 10/18/24 10/18/24 00:18 04:54 06:05 WBC 12.1 H RBC 2.55 L Hgb 8.1 L Hct 27.2 L MCV 106.7 H MCH 31.8 MCHC 29.8 L RDW 13.1 Plt Count 266 MPV 11.3 H Immature Gran % (Auto) 1.4 H Neut % (Auto) 83.8 H Lymph % (Auto) 7.3 L [place] % (Auto) 6.6 Eos % (Auto) 0.7 Baso % (Auto) 0.2 Lymph # (Auto) 0.88 L [place] # (Auto) 0.8 H Eos # (Auto) 0.1 Baso # (Auto) 0.0 Abs Immat Gran (auto) 0.17 H Absolute Neuts (auto) 10.2 H Absolute Nucleated RBC 0.000 Band Neutrophils % Not Reportable Nucleated RBC % 0.0 Platelet Estimate Adequate Clumped Platelets Present Hypochromasia 1+ Anisocytosis 1+ Macrocytosis 1+ [place] Cells 1+ Schistocytes None seen Absolute Retic Percent Retic Immature Retic Fraction Retic Hgb Content Sodium 134 L Potassium 5.5 H Chloride 111 H Carbon Dioxide 13 L Anion Gap 10 BUN 74 H Creatinine 4.83 H Estim Creat Clear Calc 15 Estimated GFR 12 L Glucose 103 POC Capillary Glucose 97 92 Calcium 8.9 Phosphorus 6.2 H Magnesium 1.4 L Iron TIBC % Saturation Ferritin Albumin 2.7 L Random Vancomycin 10.0 10/18/24 10/18/24 08:00 12:15 WBC RBC Hgb Hct MCV MCH MCHC RDW Plt Count MPV Immature Gran % (Auto) Neut % (Auto) Lymph % (Auto) [place] % (Auto) Eos % (Auto) Baso % (Auto) Lymph # (Auto) [place] # (Auto) Eos # (Auto) Baso # (Auto) Abs Immat Gran (auto) Absolute Neuts (auto) Absolute Nucleated RBC Band Neutrophils % Nucleated RBC % Platelet Estimate Clumped Platelets Hypochromasia Anisocytosis Macrocytosis [place] Cells Schistocytes Absolute Retic Percent Retic Immature Retic Fraction Retic Hgb Content Sodium Potassium Chloride Carbon Dioxide Anion Gap BUN Creatinine Estim Creat Clear Calc Estimated GFR Glucose POC Capillary Glucose 97 74 Calcium Phosphorus Magnesium Iron TIBC % Saturation Ferritin Albumin Random Vancomycin
--- NOTE | 2024-10-18 13:54 | P.PN_ITS ---
Progress Note: A&P Assessment and Plan (1) Acute renal failure: Qualifiers: Acute renal failure type: unspecified Qualified Code(s): N17.9 - Acute kidney failure, unspecified Code(s): N17.9 - Acute kidney failure, unspecified Status: Acute Assessment and Plan: Management as per Nephrology. (2) Cellulitis of both lower extremities: Code(s): L03.115 - Cellulitis of right lower limb; L03.116 - Cellulitis of left lower limb Status: Acute Assessment and Plan: Continue IV antibiotics. Wound care nurses to evaluate the wounds tomorrow make recommendations on local wound care. (3) Osteomyelitis of toe: Code(s): M86.9 - Osteomyelitis, unspecified Status: Acute Assessment and Plan: Patient could potentially require amputation of the affected toes however I am not sure the toe amputation wound would heal well since he seems to have changes in his lower extremities suggestive of likely severe peripheral artery disease. ABIs were done and results are pending. I did briefly discuss with the patient that local wound care and dry gangrene would be preferable to a toe amputation and even larger wound that would not heal. Surgery will continue to follow. Subjective Date/time seen: 10/18/24 13:54 Interval history: Patient without acute clinical changes. White blood cell count is down to 12,418 1000 on admission. Still on IV antibiotics for his bilateral feet cellulitis. Had LINDSAY bilateral lower extremities done today. Nephrology is managing his acute on chronic renal failure. Exam Extrem: Other: Stable dry gangrene of multiple toes on both feet. Some exposed bone on some of the distal phalanxes are noted. No wet gangrene or ascending cellulitis. Chronic changes of peripheral vascular disease below the knee in the lower extremities bilaterally. Objective Data Vital Signs Vital Signs: Vital Signs - 24 hr 10/17/24 16:00 10/17/24 20:00 10/17/24 20:00 Temperature Pulse Rate 60 60 Respiratory Rate Blood Pressure Pulse Oximetry Oxygen Delivery Room Air 10/17/24 22:15 10/18/24 00:00 10/18/24 04:00 Temperature 36.7 C Pulse Rate 62 60 60 Respiratory Rate 16 Blood Pressure 120/77 Pulse Oximetry 92 Oxygen Delivery 10/18/24 06:00 10/18/24 09:09 Temperature 36.4 C Pulse Rate 59 L 80 Respiratory Rate 20 Blood Pressure 104/55 L Pulse Oximetry 95 Oxygen Delivery Intake/Output Intake/Output: Intake & Output 10/15/24 10/16/24 10/17/24 10/18/24 23:59 23:59 23:59 23:59 Intake Total 4215 450 Output Total 0 200 450 Balance 0 4015 0 Meds/Results Medications: Active Medications Generic Name Dose Route Start Last Admin Trade Name Freq PRN Reason Stop Dose Admin Acetaminophen 650 mg 10/17/24 03:42 Acetaminophen 325 Mg Tablet PO Q4H PRN Mild Pain (1-3) or Fever Dextrose 12.5 gm 10/16/24 22:30 10/17/24 02:00 Dextrose 50% 25 Gm/50 Ml Syringe IV PUSH 12.5 gm PRN PRN Administration Hypoglycemia Protocol Gabapentin 100 mg 10/18/24 09:00 10/18/24 09:12 Gabapentin 100 Mg Capsule PO 100 mg Q12HR TANO Administration Glucagon 1 mg 10/16/24 22:30 Glucagon For Inj 1 Mg Vial IM PRN PRN Hypoglycemia Protocol Glucose 15 gm 10/16/24 22:30 Glucose Oral Gel 15 Gm Of Glucse In 37.5 Gm Tube PO PRN PRN Hypoglycemia Protocol Hydralazine HCl 50 mg 10/17/24 09:00 10/18/24 06:03 Hydralazine Hcl 50 Mg Tablet PO Not Given Q8HR TANO Dextrose 1,000 mls @ 100 mls/hr 10/16/24 22:30 Dextrose 5% 1,000 Ml IVPB PRN PRN Hypoglycemia Protocol Cefepime HCl 1 gm/ Sodium 50 mls @ 100 mls/hr 10/17/24 23:00 10/17/24 22:23 Chloride IVPB 100 mls/hr Q24H TANO Administration Metronidazole 500 mg in 100 mls @ 100 mls/hr 10/17/24 08:00 10/18/24 09:08 Flagyl 500 Mg/Iso Soln 100 Ml IVPB 100 mls/hr Q8H TANO Administration Sodium Bicarbonate 75 meq/ 1,075 mls @ 100 mls/hr 10/17/24 11:10 10/18/24 00:52 Sodium Chloride IV CONT 100 mls/hr .[id number] TANO Administration Metoprolol Tartrate 50 mg 10/17/24 09:00 10/18/24 09:09 Metoprolol Tartrate 50 Mg Tab PO 50 mg Q12H TANO Administration Morphine Sulfate 4 mg 10/17/24 03:42 Morphine Sulfate (*Crx) 4 Mg/Ml Inj IV PUSH Q2H PRN Pain Rated 7-10 Nifedipine 60 mg 10/17/24 09:00 10/17/24 11:43 Nifedipine 30 Mg Tab.Er.24 PO 60 mg DAILY TANO Administration Ondansetron HCl 4 mg 10/17/24 03:42 Ondansetron Inj 4 Mg/2 Ml Vial IV PUSH Q4H PRN Nausea Oxycodone/Acetaminophen 1 tablet 10/17/24 11:42 10/18/24 04:39 Oxycodone/Acetaminophen (*Crx) 5-325 Mg Tablet PO 1 tablet Q4H PRN Administration Pain Rated 7-10 Perflutren Lipid Microsphere 0 ml 10/17/24 14:41 Perflutren Lipid Microspheres 1.5 Ml Vial Diluted To 10 Ml Total Volume IV PUSH 10/20/24 14:41 ONCE PRN adequate visualization Protocol Ropinirole HCl 1 mg 10/17/24 21:00 10/17/24 22:21 Ropinirole Hcl 1 Mg Tablet PO 1 mg HS TANO Administration Sevelamer Carbonate 800 mg 10/17/24 12:00 10/18/24 12:11 Sevelamer Carbonate 800 Mg Tablet PO 800 mg TIDWM TANO Administration Sodium Bicarbonate 1,300 mg 10/17/24 09:00 10/18/24 09:09 Sodium Bicarbonate Tab 650 Mg Tablet PO 1,300 mg BID TANO Administration Sodium Zirconium Cyclosilicate 10 gm 10/18/24 10:00 10/18/24 12:11 Sodium Zirconium Cyclosilicate 10 Gm Powd.Pack PO 10/18/24 18:01 10 gm BID@1000,1800 TANO Administration Vancomycin HCl 1 each 10/16/24 23:25 Vancomycin For Acute Kidney Injury IVPB PRN PRN Vancomycin Protocol Radiology Results: ITS Impressions Lower Extremity CT 10/16/24 23:39 IMPRESSION: Skin defect over the right second toe, with possible bone exposure, without focal erosion. Skin defect over the left second PIP joint, with suggestion of early erosions on either side of the joint concerning for infection with joint space involvement. Skin defect over the left third DIP joint, with early erosion concerning for infection in the third middle phalanx and possible DIP joint involvement. Skin defects with possible exposure of bone at the distal ends of the left second middle phalanx and left third proximal phalanx, without definite erosion. Dermal thickening and subcutaneous edema in the bilateral feet and lower legs, correlate for clinical findings of cellulitis. No definite fluid collection is identified, however this determination is limited without contrast. Consider MRI of the feet without and with contrast for further evaluation. Lower Extremity CT 10/16/24 23:39 IMPRESSION: Skin defect over the right second toe, with possible bone exposure, without focal erosion. Skin defect over the left second PIP joint, with suggestion of early erosions on either side of the joint concerning for infection with joint space involvement. Skin defect over the left third DIP joint, with early erosion concerning for infection in the third middle phalanx and possible DIP joint involvement. Skin defects with possible exposure of bone at the distal ends of the left second middle phalanx and left third proximal phalanx, without definite erosion. Dermal thickening and subcutaneous edema in the bilateral feet and lower legs, correlate for clinical findings of cellulitis. No definite fluid collection is identified, however this determination is limited without contrast. Consider MRI of the feet without and with contrast for further evaluation. Renal Ultrasound 10/17/24 19:48 IMPRESSION: Bilateral cortical scarring. Mild right pelviectasis. Simple left renal cyst. Chest X-Ray 10/18/24 07:48 IMPRESSION: 1. Mild but increasing opacities in the left lower lung zone consistent with small left pleural effusion and worsening atelectasis, pneumonia, asymmetric mild pulmonary edema or some combination thereof. 2. Borderline heart size. Labs Labs: Laboratory Results - last 24 hr 10/17/24 10/17/24 10/17/24 16:30 17:37 22:23 WBC RBC Hgb Hct MCV MCH MCHC RDW Plt Count MPV Immature Gran % (Auto) Neut % (Auto) Lymph % (Auto) [place] % (Auto) Eos % (Auto) Baso % (Auto) Lymph # (Auto) [place] # (Auto) Eos # (Auto) Baso # (Auto) Abs Immat Gran (auto) Absolute Neuts (auto) Absolute Nucleated RBC Band Neutrophils % Nucleated RBC % Platelet Estimate Clumped Platelets Hypochromasia Anisocytosis Macrocytosis [place] Cells Schistocytes Absolute Retic 0.05 Percent Retic 1.84 Immature Retic Fraction 13.8 Retic Hgb Content 31.3 Sodium 135 L Potassium 5.6 H Chloride 114 H Carbon Dioxide 10 L Anion Gap 11 BUN 73 H Creatinine 5.05 H Estim Creat Clear Calc 15 Estimated GFR 11 L Glucose 96 POC Capillary Glucose 77 108 H Calcium 9.2 Phosphorus 6.2 H Magnesium Iron 30 L TIBC 187 L % Saturation 16 L Ferritin 423.00 H Albumin 3.0 L Random Vancomycin 10/18/24 10/18/24 10/18/24 00:18 04:54 06:05 WBC 12.1 H RBC 2.55 L Hgb 8.1 L Hct 27.2 L MCV 106.7 H MCH 31.8 MCHC 29.8 L RDW 13.1 Plt Count 266 MPV 11.3 H Immature Gran % (Auto) 1.4 H Neut % (Auto) 83.8 H Lymph % (Auto) 7.3 L [place] % (Auto) 6.6 Eos % (Auto) 0.7 Baso % (Auto) 0.2 Lymph # (Auto) 0.88 L [place] # (Auto) 0.8 H Eos # (Auto) 0.1 Baso # (Auto) 0.0 Abs Immat Gran (auto) 0.17 H Absolute Neuts (auto) 10.2 H Absolute Nucleated RBC 0.000 Band Neutrophils % Not Reportable Nucleated RBC % 0.0 Platelet Estimate Adequate Clumped Platelets Present Hypochromasia 1+ Anisocytosis 1+ Macrocytosis 1+ [place] Cells 1+ Schistocytes None seen Absolute Retic Percent Retic Immature Retic Fraction Retic Hgb Content Sodium 134 L Potassium 5.5 H Chloride 111 H Carbon Dioxide 13 L Anion Gap 10 BUN 74 H Creatinine 4.83 H Estim Creat Clear Calc 15 Estimated GFR 12 L Glucose 103 POC Capillary Glucose 97 92 Calcium 8.9 Phosphorus 6.2 H Magnesium 1.4 L Iron TIBC % Saturation Ferritin Albumin 2.7 L Random Vancomycin 10.0 10/18/24 10/18/24 08:00 12:15 WBC RBC Hgb Hct MCV MCH MCHC RDW Plt Count MPV Immature Gran % (Auto) Neut % (Auto) Lymph % (Auto) [place] % (Auto) Eos % (Auto) Baso % (Auto) Lymph # (Auto) [place] # (Auto) Eos # (Auto) Baso # (Auto) Abs Immat Gran (auto) Absolute Neuts (auto) Absolute Nucleated RBC Band Neutrophils % Nucleated RBC % Platelet Estimate Clumped Platelets Hypochromasia Anisocytosis Macrocytosis [place] Cells Schistocytes Absolute Retic Percent Retic Immature Retic Fraction Retic Hgb Content Sodium Potassium Chloride Carbon Dioxide Anion Gap BUN Creatinine Estim Creat Clear Calc Estimated GFR Glucose POC Capillary Glucose 97 74 Calcium Phosphorus Magnesium Iron TIBC % Saturation Ferritin Albumin Random Vancomycin
[2024-10-18 18:40] LABS: Anion Gap 11 mmol/L (4-12); Blood Urea Nitrogen 75 mg/dL (9-20); Calcium 8.9 mg/dL (8.4-10.2); Carbon Dioxide 14 mmol/L (22-30); Chloride 113 mmol/L (98-107); Estimated CRCL calculation 16 ml/min; Estimated Glomerular Filt Rate 12; Glucose 139 mg/dL (65-110); Potassium 4.9 mmol/L (3.4-5.0); Sodium 138 mmol/L (137-145)
[2024-10-18] MEDS: CEFEPIME 1 GM in SODIUM CHLORIDE 0.9% IV 50 ML 100 ML IVPB (22:58)
[2024-10-19] VITALS (14 sets, daily range): BP systolic 108–139; BP diastolic 46–53; PULSE 60–68; RESP 18–20; TEMP 36.6–36.8; O2SAT 95–99; BMI 35.2
--- NOTE | 2024-10-19 | ECHO_ITS ---
Patient Info Name: Oj Brandt Age: 78 years : 1945 Gender: Male Ht: 71 in Wt: 252 lbs BSA: 2.43 m2 BP: 108 / 46 mmHg Technical Quality: Poor Exam Date: 10/19/2024 10:55 AM Patient Status: I Admit Date: 10/17/2024 Exam Type: CA echo dop color flow w con Complete two-dimensional, color flow and Doppler transthoracic echocardiogram is performed with contrast to opacify the left ventricle and to improve the deliniation of the left ventricle endocardial borders. Staff Referring Physician: Arturo Cornejo Accounts Payable Clerk: Jinny Gonzalez Attending Provider: Laura Kelly Contrast/Agitated Saline Contrast/Ag. Saline: Definity Amount: 2.00 ml Administered By: Jinny Gonzalez Existing IV Access: Yes IV Access Condition: patent with no signs of infiltration Reason for Poor Study: patient body habitus Summary 1. Left ventricular systolic function is normal, estimated at 65-70. 2. The left ventricular diastolic function is grade II diastolic dysfunction. 3. Linear artifact in right ventricle suggestive of catheter(s), pacemaker lead(s), or ICD lead(s). 4. Left atrial chamber dimension is severely enlarged. 5. There is mild mitral valve regurgitation. 6. There is mild to moderate tricuspid valve regurgitation. 7. Moderate pulmonary hypertension, estimated pulmonary arterial systolic pressure is 50 mmHg. Left Ventricle Left ventricular chamber dimension is normal. Left ventricular systolic function is normal, estimated at 65-70. There is no increased left ventricular wall thickness. Left ventricular septal wall motion is normal. The left ventricular diastolic function is grade II diastolic dysfunction. Right Ventricle Right ventricular chamber dimension is normal. Right ventricular systolic function is normal. Linear artifact in right ventricle suggestive of catheter(s), pacemaker lead(s), or ICD lead(s). Left Atria Left atrial chamber dimension is severely enlarged. Right Atria Right atrial chamber dimension is normal. Aortic Valve The aortic valve is trileaflet. There is no aortic valve sclerosis. There is no aortic valve stenosis. There is no aortic valve regurgitation. There is mild aortic valve calcification. Pulmonic Valve The pulmonic valve is normal. There is no pulmonic valve stenosis. There is no pulmonic regurgitation. Mitral Valve The mitral valve has normal leaflets. There is no mitral valve stenosis. There is mild mitral valve regurgitation. Tricuspid Valve The tricuspid valve leaflets are normal. There is no significant tricuspid valve stenosis. There is mild to moderate tricuspid valve regurgitation. Moderate pulmonary hypertension, estimated pulmonary arterial systolic pressure is 50 mmHg. Pericardium/Pleural The pericardium appears normal. There is no pericardial effusion. Inferior Vena Cava Normal inferior vena cava with >50% collapse upon inspiration consistent with normal right atrial pressure, 5 mmHg. Aorta The aortic root size at the sinus of Valsalva is normal. The prox ascending aorta size is normal. Left Ventricular Outflow Tract Name Value Normal LVOT 2D LVOT Diameter 2.0 cm LVOT Doppler LVOT Peak Velocity 118 cm/s LVOT Peak Gradient 6 mmHg LVOT Mean Gradient 3 mmHg LVOT VTI 26 cm LVOT VTI/AV VTI Ratio 0.8 LVOT Stroke Volume 79 ml LVOT CO 4.7 l/min LVOT CI 1.9 l/min/m2 Pulmonic Valve Name Value Normal RVOT Doppler RVOT Peak Velocity 84 cm/s RVOT Peak Gradient 3 mmHg PV Doppler PV Peak Velocity 111 cm/s PV Peak Gradient 5 mmHg Mitral Valve Name Value Normal MV Diastolic Function MV E Peak Velocity 131 cm/s MV A Peak Velocity 56 cm/s MV E/A 2.3 MV Decel Time (PW) 272 ms Tricuspid Valve Name Value Normal TV Regurgitation Doppler TR Peak Velocity 336 cm/s TR Peak Gradient 36 mmHg Estimated PAP/RSVP RA Pressure 5 mmHg <=5 PA Systolic Pressure 50 mmHg <36 RV Systolic Pressure 50 mmHg <36 TV Annular TDI TV Lateral Anne s' Velocity 14.1 cm/s >=9.5 Aorta Name Value Normal Ascending Aorta Ao Root Diameter (MM) 3.4 cm Ao Root Diam Index (MM) 1.4 cm/m2 Aortic Valve Name Value Normal AV Doppler AV Peak Velocity 169 cm/s AV Peak Gradient 11 mmHg AV Mean Gradient 6 mmHg AV VTI 34 cm AV Area (Cont Eq VTI) 2.3 cm2 >=3.0 AV Area (Cont Eq Juvenal) 2.1 cm2 AV DI (Juvenal) 0.70 AV Regurgitation 2D LVOT Area 3.0 cm2 Ventricles Name Value Normal LV Dimensions 2D/MM IVS Diastolic Thickness (2D) 0.7 cm 0.6-1.0 IVS Diastole Thickness (MM) 1.1 cm 0.6-1.0 LVID Diastole (2D) 5.8 cm 4.2-5.8 LVID Diastole (MM) 6.6 cm 4.2-5.8 LVIW Diastolic Thickness (2D) 0.7 cm 0.6-1.0 LVIW Diastolic Thickness (MM) 1.2 cm 0.6-1.0 LVID Systole (2D) 2.8 cm 2.5-4.0 LVID Systole (MM) 3.4 cm 2.5-4.0 LVOT Diameter 2.0 cm LV Mass (2D Cubed) 151.39 g 88.00-224.00 LV Mass Index (2D Cubed) 62 g/m2 49-115 Relative Wall Thickness (2D) 0.25 <=0.42 LV Mass (MM Cubed) 349.52 g 88.00-224.00 LV Mass Index (MM Cubed) 144 g/m2 49-115 Relative Wall Thickness (MM) 0.36 LV Fractional Shortening/Ejection Fraction 2D/MM LV Fractional Shortening (2D) 52 % 25-43 LV Fractional Shortening (MM) 49 % 25-43 LV EF (MM Teichholz) 79 % LV EF (2D Teichholz) 82 % LV Diastolic Volume (4C MOD) 158 ml LV EF (4C MOD) 79 % LV Diastolic Volume (2C MOD) 169 ml LV EF (2C MOD) 74 % LV Diastolic Volume (BP MOD) 167 ml 62-150 LV Diastolic Volume Index (BP MOD) 69 ml/m2 34-74 LV Systolic Volume (BP MOD) 39 ml 21-61 LV Systolic Volume Index (BP MOD) 16 ml/m2 11-31 LV EF (BP MOD) 77 % 52-72 LV Diastolic Length (4C) 8.9 cm LV Systolic Length (4C) 6.4 cm LV Stroke Volume (4C MOD) 124 ml Atria Name Value Normal LA Dimensions LA Dimension (MM) 4.9 cm 3.0-4.0 LA Volume (4C A-L) 86 ml LA Volume (BP A-L) 112 ml RA Dimensions RA Systolic Major Rebecca Length (4C) 6.7 cm 2.1-2.7 RA Area (4C) 29.2 cm2 <=18.0 Report Signatures
[2024-10-19] MEDS: oxyCODONE/ACETAMINOPHEN (*CRX) 5-325 MG TABLET 1 TABLET PO ×2 (01:12→09:08)
[2024-10-19] MEDS: metroNIDAZOLE 500 MG/ISO 100ML 500 MG/100 ML BAG 100 MG IVPB ×2 (01:13→09:01)
[2024-10-19 01:26] LABS: Hematocrit 29.1 % (42.0-52.0); Hemoglobin 8.7 g/dL (14.0-18.0); Immature Granulocyte Percent A 1.5 % (0-0.5); Lymphocytes Absolute Auto 0.95 K/mm3 (0.9-3.2); Mean Corpuscular HGB Conc 29.9 g/dl (32-36); Mean Corpuscular Hemoglobin 31.4 pg (26-34); Mean Corpuscular Volume 105.1 fl (80-100); Nucleated Red Blood Cells Absolute Auto 0.000 K/mm3 (0.0-0.012); Nucleated Red Blood Cells Perc 0.0 % (0.0-0.2); Platelet Count Result 294 k/mm3 (150-375); Red Blood Count 2.77 M/mm3 (4.6-6.20); White Blood Count 10.2 K/mm3 (4.5-10.0)
[2024-10-19 01:46] LABS: Albumin Level 2.8 g/dL (3.5-5.1); Anion Gap 9 mmol/L (4-12); Blood Urea Nitrogen 77 mg/dL (9-20); Calcium 9.0 mg/dL (8.4-10.2); Carbon Dioxide 16 mmol/L (22-30); Chloride 110 mmol/L (98-107); Estimated CRCL calculation 16 ml/min; Estimated Glomerular Filt Rate 12; Glucose 107 mg/dL (65-110); Magnesium 1.5 mg/dL (1.6-2.3); Potassium 4.8 mmol/L (3.4-5.0); Sodium 135 mmol/L (137-145)
[2024-10-19] MEDS: VANCOMYCIN 1,500 MG/NS 500 ML 1,500 MG/500 ML BAG 250 MG IVPB (03:10)
[2024-10-19] MEDS: SODIUM BICARBONATE 8.4% 75 MEQ in SODIUM CHLORIDE 0.45% 1,000 ML 100 MEQ IV CONT ×2 (05:33→21:18)
[2024-10-19] MEDS: METOPROLOL TARTRATE 50 MG TAB PO ×2 (09:01→21:13)
[2024-10-19] MEDS: GABAPENTIN 100 MG CAPSULE PO ×2 (09:01→21:13)
[2024-10-19] MEDS: SODIUM BICARBONATE TAB 650 MG TABLET 1300 MG PO ×2 (09:01→17:21)
[2024-10-19] MEDS: SEVELAMER CARBONATE 800 MG TABLET PO ×2 (09:01→17:21)
[2024-10-19] MEDS: PERFLUTREN LIPID MICROSPHERES 1.5 ML VIAL DILUTED TO 10 ML TOTAL VOLUME IV PUSH (11:20)
--- NOTE | 2024-10-19 11:38 | P.PNNP_ITS ---
Progress Note: A&P Assessment and Plan (1) Acute kidney injury: Code(s): N17.9 - Acute kidney failure, unspecified Status: Acute Assessment and Plan: * slow improvement noted * as evidence of by admission and AM labs (on 10/17) * repeat labs done in ER (10/17 at 1:50am was likely a lab error) * suspect multifactorial etiology: * infection/early sepsis [UTI + cellulitis +/- osteomyelitis(?)] * pre-renal factors * use of NATHALIE-I prior to admission * use of diuretics prior to admission * other(?) * evaluation to date noted: * UA suggests infection * urine eosinophils negative * urine electrolytes prerenal (FeUrea) * moderate proteinuria * CPK mildy elevated but not enough to affect kidney function * renal ultrasound c/w CKD * on bicarb fluids * remains at risk for [employer]/hemodialysis * follow trend of repeat labs and UOP (2) Stage 4 chronic kidney disease: Code(s): N18.4 - Chronic kidney disease, stage 4 (severe) Status: Acute Assessment and Plan: * per patient, GFR has fluctuated to extremes * per outpatient labs done at [facility] (by verbal report): * 09/07/24 - creatinine 3.01mg/dl (GFR 20) * 08/03/24 - creatinine 2.44mg/dl (GFR 26) * presumably due to hypertension, CHF(?), vascular disease, and age-related change * follows with Dr. Arian Gleason for management of his chronic kidney disease (3) Hyperkalemia: Code(s): E87.5 - Hyperkalemia Status: Acute Assessment and Plan: * due to KURTIS, NATHALIE-I use, and acidosis * s/p medical management in the ER * redose lokelma today since K+ still elevated * follow trend of repeat K+ (4) Metabolic acidosis: Code(s): E87.20 - Acidosis, unspecified Status: Acute Assessment and Plan: * improving * acute on chronic * on outpatient sodium bicarbonate * acute worsening secondary to KURTIS and IVF resuscitation * added bicarbonate to IVFs * remains on oral sodium bicarbonate * follow CO2 levels (5) Cellulitis of both lower extremities: Code(s): L03.115 - Cellulitis of right lower limb; L03.116 - Cellulitis of left lower limb Status: Acute Assessment and Plan: * as noted on presentation * complicated by multiple skin wounds/defects/erosions * possible osteomyelitis(?) * CT of bilateral lower extremities noted: * skin defect over the right second toe, with possible bone exposure, without focal erosion * skin defect over the left second PIP joint, with suggestion of early erosions on either side of the joint concerning for infection with joint space involvement * skin defect over the left third DIP joint, with early erosion concerning for infection in the third middle phalanx and possible DIP joint involvement * skin defects with possible exposure of bone at the distal ends of the left second middle phalanx and left third proximal phalanx, without definite erosion * dermal thickening and subcutaneous edema in the bilateral feet and lower legs, correlate for clinical findings of cellulitis * no definite fluid collection is identified, however this determination is limited without contrast * may need MRI for further evaluation * Surgery recommendations noted * follow culture data * local wound care * on antibiotics (6) UTI (urinary tract infection): Qualifiers: Hematuria presence: with hematuria Urinary tract infection type: acute cystitis Qualified Code(s): N30.01 - Acute cystitis with hematuria Code(s): N39.0 - Urinary tract infection, site not specified Status: Acute Assessment and Plan: * as suggested by admission UA * follow culture data * on antibiotics (7) Anemia: Code(s): D64.9 - Anemia, unspecified Status: Acute Assessment and Plan: * due to KURTIS, CKD, and acute illness * anemia studies noted: * evidence of iron deficiency * although not a candidate for IV iron given acute infection * may need MURRAY * follow trend of H/H (8) Generalized weakness: Code(s): R53.1 - Weakness Status: Acute Assessment and Plan: * s/p fall prior to admission * suspect due to acute illness (infection, KURTIS, hyperkalemia, acidosis...etc) * PT/OT as tolerated Will continue to follow. L Subjective Date/time seen: 10/19/24 11:38 Interval history: Follow-up for acute kidney injury/acute renal failure on chronic kidney disease. Hyperkalemia and metabolic acidosis appears to be slowly improving with current therapy; renal function/creatinine relatively stable in the last 24 hours; better urine output noted as this time as well; no apparent distress voiced at the time of my visit. Exam 2 Narrative: General: elderly but WD/WN male in NAD Heart: normal S1 and S2; no rub Lungs: clear anteriorly Abdomen: soft, nontender, nondistended, positive bowel sounds Extremities: no cyanosis or clubbing; + erythema present Skin: bilateral toe ulcerations/wounds apparent Objective Data Vital Signs Vital Signs: Vital Signs Temp Pulse Resp BP Pulse Ox O2 Del Method 10/19/24 09:09 18 139/50 L 96 10/19/24 09:01 60 10/19/24 08:00 60 10/19/24 08:00 Room Air 10/19/24 07:46 Room Air 10/19/24 05:34 97.8 F 68 18 108/46 L 99 10/19/24 04:01 60 10/19/24 00:03 60 10/19/24 00:00 60 10/18/24 21:12 60 10/18/24 21:08 60 10/18/24 21:03 97.9 F 60 18 117/43 L 97 10/18/24 20:01 60 Intake/Output Intake/Output: Intake & Output 10/16/24 10/17/24 10/18/24 10/19/24 23:59 23:59 23:59 23:59 Intake Total 4265 1725 2315 Output Total 0 200 550 950 Balance 0 4065 1175 1365 Meds/Results Medications: Active Medications Generic Name Dose Route Start Last Admin Trade Name Freq PRN Reason Stop Dose Admin Acetaminophen 650 mg 10/17/24 03:42 Acetaminophen 325 Mg Tablet PO Q4H PRN Mild Pain (1-3) or Fever Ciprofloxacin 500 mg 10/19/24 21:00 Ciprofloxacin 500 Mg Tab PO QHS TANO Dextrose 12.5 gm 10/16/24 22:30 10/17/24 02:00 Dextrose 50% 25 Gm/50 Ml Syringe IV PUSH 12.5 gm PRN PRN Administration Hypoglycemia Protocol Doxycycline Hyclate 100 mg 10/19/24 21:00 Doxycycline Hyclate 100 Mg Tablet PO Q12HR TANO Gabapentin 100 mg 10/18/24 09:00 10/19/24 09:01 Gabapentin 100 Mg Capsule PO 100 mg Q12HR TANO Administration Glucagon 1 mg 10/16/24 22:30 Glucagon For Inj 1 Mg Vial IM PRN PRN Hypoglycemia Protocol Glucose 15 gm 10/16/24 22:30 Glucose Oral Gel 15 Gm Of Glucse In 37.5 Gm Tube PO PRN PRN Hypoglycemia Protocol Heparin Sodium (Porcine) 5,000 units 10/19/24 21:00 Heparin Sodium 5,000 Units/Ml Vial SUB-Q Q12HR TANO Hydralazine HCl 50 mg 10/17/24 09:00 10/19/24 15:19 Hydralazine Hcl 50 Mg Tablet PO 50 mg Q8HR TANO Administration Dextrose 1,000 mls @ 100 mls/hr 10/16/24 22:30 Dextrose 5% 1,000 Ml IVPB PRN PRN Hypoglycemia Protocol Sodium Bicarbonate 75 meq/ 1,075 mls @ 100 mls/hr 10/17/24 11:10 10/19/24 05:33 Sodium Chloride IV CONT 100 mls/hr .[id number] TANO Administration Metoprolol Tartrate 50 mg 10/17/24 09:00 10/19/24 09:01 Metoprolol Tartrate 50 Mg Tab PO 50 mg Q12H TANO Administration Metronidazole 500 mg 10/19/24 14:00 10/19/24 15:19 Metronidazole 500 Mg Tablet PO 500 mg Q8HR TANO Administration Morphine Sulfate 4 mg 10/17/24 03:42 Morphine Sulfate (*Crx) 4 Mg/Ml Inj IV PUSH Q2H PRN Pain Rated 7-10 Nifedipine 60 mg 10/17/24 09:00 10/19/24 09:01 Nifedipine 30 Mg Tab.Er.24 PO 60 mg DAILY TANO Administration Ondansetron HCl 4 mg 10/17/24 03:42 Ondansetron Inj 4 Mg/2 Ml Vial IV PUSH Q4H PRN Nausea Oxycodone/Acetaminophen 1 tablet 10/17/24 11:42 10/19/24 09:08 Oxycodone/Acetaminophen (*Crx) 5-325 Mg Tablet PO 1 tablet Q4H PRN Administration Pain Rated 7-10 Ropinirole HCl 1 mg 10/17/24 21:00 10/18/24 21:09 Ropinirole Hcl 1 Mg Tablet PO 1 mg HS TANO Administration Sevelamer Carbonate 800 mg 10/17/24 12:00 10/19/24 17:21 Sevelamer Carbonate 800 Mg Tablet PO 800 mg TIDWM TANO Administration Sodium Bicarbonate 1,300 mg 10/17/24 09:00 10/19/24 17:21 Sodium Bicarbonate Tab 650 Mg Tablet PO 1,300 mg BID TANO Administration Radiology Results: ITS Impressions Lower Extremity CT 10/16/24 23:39 IMPRESSION: Skin defect over the right second toe, with possible bone exposure, without focal erosion. Skin defect over the left second PIP joint, with suggestion of early erosions on either side of the joint concerning for infection with joint space involvement. Skin defect over the left third DIP joint, with early erosion concerning for infection in the third middle phalanx and possible DIP joint involvement. Skin defects with possible exposure of bone at the distal ends of the left second middle phalanx and left third proximal phalanx, without definite erosion. Dermal thickening and subcutaneous edema in the bilateral feet and lower legs, correlate for clinical findings of cellulitis. No definite fluid collection is identified, however this determination is limited without contrast. Consider MRI of the feet without and with contrast for further evaluation. Lower Extremity CT 10/16/24 23:39 IMPRESSION: Skin defect over the right second toe, with possible bone exposure, without focal erosion. Skin defect over the left second PIP joint, with suggestion of early erosions on either side of the joint concerning for infection with joint space involvement. Skin defect over the left third DIP joint, with early erosion concerning for infection in the third middle phalanx and possible DIP joint involvement. Skin defects with possible exposure of bone at the distal ends of the left second middle phalanx and left third proximal phalanx, without definite erosion. Dermal thickening and subcutaneous edema in the bilateral feet and lower legs, correlate for clinical findings of cellulitis. No definite fluid collection is identified, however this determination is limited without contrast. Consider MRI of the feet without and with contrast for further evaluation. Renal Ultrasound 10/17/24 19:48 IMPRESSION: Bilateral cortical scarring. Mild right pelviectasis. Simple left renal cyst. Chest X-Ray 10/18/24 07:48 IMPRESSION: 1. Mild but increasing opacities in the left lower lung zone consistent with small left pleural effusion and worsening atelectasis, pneumonia, asymmetric mild pulmonary edema or some combination thereof. 2. Borderline heart size. Ankle Brachial Index 10/19/24 06:09 IMPRESSION: 1. Normal ankle-brachial indices. Labs Labs: Laboratory Tests 10/19/24 01:18 10/19/24 01:18 Calcium 9.0 Phosphorus 6.0 H Magnesium 1.5 L Albumin 2.8 L Random Vancomycin 16.9 Microbiology 10/16/24 22:48 Blood Blood Culture - Preliminary 10/16/24 21:34 Blood Blood Culture - Preliminary
--- NOTE | 2024-10-19 12:05 | P.CDI_ITS ---
CDI Query Clarification Request sepsis was documented on H&P, however, this diagnosis does not appear to be carried forward in the subsequent progress notes. Please clarify if sepsis has been ruled in or ruled out * sepsis- confirmed diagnosis (if yes, was it present on admission: yes or no) * sepsis- ruled out * unable to determine * other, please specify The medical chart reflects the followin/2 H&P: Plan Sepsis UTI Cellulitis of bilateral lower extremities Multiple wound infection bilateral lower extremities Osteomyelitis possible involving left second PIP joint, left third DIP joint,third middle phalanx and possible DIP joint , UA showed cloudy urine, pyuria, white blood cell more than 100, bacteria in the urine 4+ CBC showed leukocytosis 18,200 with left shift, hemoglobin 8.8 upon arrival, no recent baseline for comparison, CT showed skin defect over the right second toe, with possible bone exposure, without focal erosion.Skin defect over the left second PIP joint, with suggestion of early erosions on either side of the joint concerning for infecti on with joint space involvement. Skin defect over the left third DIP joint, with early erosion concerning for infection in the third middle phalanx and possible DIP joint involvement. Skin defects with possible exposure of bone at the distal ends of the left second middle phalanx and left third proximal phalanx, without definite erosion. Dermal thickening and subcutaneous edema in the bilateral feet and lower legs, correlate for clinical findings of cellulitis Start fluid resuscitation per sepsis protocol Continue normal saline IV Received vancomycin, cefepime and metronidazole in the ED, continued antibiotics, dosing vancomycin per pharmacist 10/18 hospitalist Assessment and Plan (1) Acute renal failure: Qualifiers: Acute renal failure type: unspecified Qualified Code(s): N17.9 - Acute kidney failure, unspecified Code(s): N17.9 - Acute kidney failure, unspecified Status: Acute (2) Stage 4 chronic kidney disease: Code(s): N18.4 - Chronic kidney disease, stage 4 (severe) Status: Acute (3) Hyperkalemia: Code(s): E87.5 - Hyperkalemia Status: Acute (4) Cellulitis of both lower extremities: Code(s): L03.115 - Cellulitis of right lower limb; L03.116 - Cellulitis of left lower limb Status: Acute (5) Osteomyelitis of toe: Code(s): M86.9 - Osteomyelitis, unspecified Status: Acute (6) Dry gangrene: Code(s): I96 - Gangrene, not elsewhere classified Status: Acute (7) Infestation, maggots: Code(s): B87.9 - Myiasis, unspecified Status: Acute (8) Generalized weakness: Code(s): R53.1 - Weakness Status: Acute (9) Anemia: Code(s): D64.9 - Anemia, unspecified Status: Acute (10) UTI (urinary tract infection): Qualifiers: Hematuria presence: with hematuria Urinary tract infection type: acute cystitis Qualified Code(s): N30.01 - Acute cystitis with hematuria Code(s): N39.0 - Urinary tract infection, site not specified Status: Acute Upon arrival to ED, patient has uncontrolled blood pressure 164/67, tachypnea UA showed cloudy urine, pyuria, white blood cell more than 100, bacteria in the urine 4+ CBC showed leukocytosis 18,200 with left shift, hemoglobin 8.8 upon arrival, no recent baseline for comparison, Chemistry showed hyponatremia 136, hyperkalemia 5.9, bicarbonate 12, elevated BUN creatinine ratio 72/5.33, magnesium 1.4, CT showed skin defect over the right second toe, with possible bone exposure, without focal erosion.Skin defect over the left second PIP joint, with suggestion of early erosions on either side of the joint concerning for infection with joint space involvement. Skin defect over the left third DIP joint, with early erosion concerning for infection in the third middle phalanx and possible DIP joint involvement. Skin defects with possible exposure of bone at the distal ends of the left second middle phalanx and left third proximal phalanx, without definite erosion. Dermal thickening and subcutaneous edema in the bilateral feet and lower legs, correlate for clinical findings of cellulitis IV abx PO abx
--- NOTE | 2024-10-19 12:10 | IVDEFINITY ---
Prior to administration of IV Definity the patient was educated on the risks and benefits of the imaging enhancing agent including potential adverse side effects. The patient verbalized understanding. Allergies were verified. No exclusion criteria were identified and at least one of the following inclusion criteria were met: 1) physician request, 2) patient technically difficult to image (per the [place] [employer] guidelines of two or more segments not discernable within the apical view), or 3) questionable left ventricular function. ?
--- NOTE | 2024-10-19 15:13 | PCOTNOTE ---
Attempted to see pt twice today. First attempt in AM, pt was just getting back to bed for an echo. Second attempt in PM, pt getting wounds redressed by RN. Will continue to follow and see as able for OT evaluation.
--- NOTE | 2024-10-19 15:53 | PM.PNGS ---
Progress Note: A&P Assessment and Plan (1) Osteomyelitis of toe: Code(s): M86.9 - Osteomyelitis, unspecified Status: Acute Assessment and Plan: Patient could potentially require amputation of the affected toes. Patient has findings on exam c/w venous insufficiency. ABIs normal. Continue antibiotics, which were changed to oral antibiotics today. Will continue local wound care with betadine swabs for now and decide on need for amputation of the affected toes in the next day or two. (2) Cellulitis of both lower extremities: Code(s): L03.115 - Cellulitis of right lower limb; L03.116 - Cellulitis of left lower limb Status: Acute Assessment and Plan: Improving. Continue antibiotics. (3) Acute renal failure: Qualifiers: Acute renal failure type: unspecified Qualified Code(s): N17.9 - Acute kidney failure, unspecified Code(s): N17.9 - Acute kidney failure, unspecified Status: Acute Assessment and Plan: Management as per Nephrology. Plan I have discussed the patient's case and plan of care with Dr. Zarate. Subjective Subjective Date/Time Seen: 10/19/24 15:53 Patient reports: no new complaints and afebrile Interval history: No specific complaints at this time. WBC coming down to 10.2 today. 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 Some exposed bone on some of the distal phalanxes are noted. No wet gangrene or ascending cellulitis. Chronic changes of peripheral vascular disease below the knee in the lower extremities bilaterally. Objective Data Vital Signs Vital Signs: Vital Signs - 24 hr 10/18/24 16:00 10/18/24 20:01 10/18/24 21:03 Temperature 97.9 F Pulse Rate 60 60 60 Respiratory Rate 18 Blood Pressure 117/43 L Pulse Oximetry 97 Oxygen Delivery 10/18/24 21:08 10/18/24 21:12 10/19/24 00:00 Temperature Pulse Rate 60 60 60 Respiratory Rate Blood Pressure Pulse Oximetry Oxygen Delivery 10/19/24 00:03 10/19/24 04:01 10/19/24 05:34 Temperature 97.8 F Pulse Rate 60 60 68 Respiratory Rate 18 Blood Pressure 108/46 L Pulse Oximetry 99 Oxygen Delivery 10/19/24 07:46 10/19/24 08:00 10/19/24 09:01 Temperature Pulse Rate 60 Respiratory Rate Blood Pressure Pulse Oximetry Oxygen Delivery Room Air Room Air 10/19/24 09:09 10/19/24 14:00 Temperature 97.8 F Pulse Rate 61 Respiratory Rate 18 20 Blood Pressure 139/50 L 114/53 L Pulse Oximetry 96 96 Oxygen Delivery Intake/Output Intake/Output: Intake & Output 10/16/24 10/17/24 10/18/24 10/19/24 23:59 23:59 23:59 23:59 Intake Total 4265 1725 1525 Output Total 0 200 550 500 Balance 0 4065 1175 1025 Meds/Results Medications: Active Medications Generic Name Dose Route Start Last Admin Trade Name Freq PRN Reason Stop Dose Admin Acetaminophen 650 mg 10/17/24 03:42 Acetaminophen 325 Mg Tablet PO Q4H PRN Mild Pain (1-3) or Fever Ciprofloxacin 500 mg 10/19/24 21:00 Ciprofloxacin 500 Mg Tab PO QHS TANO Dextrose 12.5 gm 10/16/24 22:30 10/17/24 02:00 Dextrose 50% 25 Gm/50 Ml Syringe IV PUSH 12.5 gm PRN PRN Administration Hypoglycemia Protocol Doxycycline Hyclate 100 mg 10/19/24 21:00 Doxycycline Hyclate 100 Mg Tablet PO Q12HR TANO Gabapentin 100 mg 10/18/24 09:00 10/19/24 09:01 Gabapentin 100 Mg Capsule PO 100 mg Q12HR TANO Administration Glucagon 1 mg 10/16/24 22:30 Glucagon For Inj 1 Mg Vial IM PRN PRN Hypoglycemia Protocol Glucose 15 gm 10/16/24 22:30 Glucose Oral Gel 15 Gm Of Glucse In 37.5 Gm Tube PO PRN PRN Hypoglycemia Protocol Hydralazine HCl 50 mg 10/17/24 09:00 10/19/24 15:19 Hydralazine Hcl 50 Mg Tablet PO 50 mg Q8HR TANO Administration Dextrose 1,000 mls @ 100 mls/hr 10/16/24 22:30 Dextrose 5% 1,000 Ml IVPB PRN PRN Hypoglycemia Protocol Sodium Bicarbonate 75 meq/ 1,075 mls @ 100 mls/hr 10/17/24 11:10 10/19/24 05:33 Sodium Chloride IV CONT 100 mls/hr .[id number] TANO Administration Metoprolol Tartrate 50 mg 10/17/24 09:00 10/19/24 09:01 Metoprolol Tartrate 50 Mg Tab PO 50 mg Q12H TANO Administration Metronidazole 500 mg 10/19/24 14:00 10/19/24 15:19 Metronidazole 500 Mg Tablet PO 500 mg Q8HR TANO Administration Morphine Sulfate 4 mg 10/17/24 03:42 Morphine Sulfate (*Crx) 4 Mg/Ml Inj IV PUSH Q2H PRN Pain Rated 7-10 Nifedipine 60 mg 10/17/24 09:00 10/19/24 09:01 Nifedipine 30 Mg Tab.Er.24 PO 60 mg DAILY TANO Administration Ondansetron HCl 4 mg 10/17/24 03:42 Ondansetron Inj 4 Mg/2 Ml Vial IV PUSH Q4H PRN Nausea Oxycodone/Acetaminophen 1 tablet 10/17/24 11:42 10/19/24 09:08 Oxycodone/Acetaminophen (*Crx) 5-325 Mg Tablet PO 1 tablet Q4H PRN Administration Pain Rated 7-10 Ropinirole HCl 1 mg 10/17/24 21:00 10/18/24 21:09 Ropinirole Hcl 1 Mg Tablet PO 1 mg HS TANO Administration Sevelamer Carbonate 800 mg 10/17/24 12:00 10/19/24 14:04 Sevelamer Carbonate 800 Mg Tablet PO Not Given TIDWM [facility] Sodium Bicarbonate 1,300 mg 10/17/24 09:00 10/19/24 09:01 Sodium Bicarbonate Tab 650 Mg Tablet PO 1,300 mg BID TANO Administration Radiology Results: ITS Impressions Lower Extremity CT 10/16/24 23:39 IMPRESSION: Skin defect over the right second toe, with possible bone exposure, without focal erosion. Skin defect over the left second PIP joint, with suggestion of early erosions on either side of the joint concerning for infection with joint space involvement. Skin defect over the left third DIP joint, with early erosion concerning for infection in the third middle phalanx and possible DIP joint involvement. Skin defects with possible exposure of bone at the distal ends of the left second middle phalanx and left third proximal phalanx, without definite erosion. Dermal thickening and subcutaneous edema in the bilateral feet and lower legs, correlate for clinical findings of cellulitis. No definite fluid collection is identified, however this determination is limited without contrast. Consider MRI of the feet without and with contrast for further evaluation. Lower Extremity CT 10/16/24 23:39 IMPRESSION: Skin defect over the right second toe, with possible bone exposure, without focal erosion. Skin defect over the left second PIP joint, with suggestion of early erosions on either side of the joint concerning for infection with joint space involvement. Skin defect over the left third DIP joint, with early erosion concerning for infection in the third middle phalanx and possible DIP joint involvement. Skin defects with possible exposure of bone at the distal ends of the left second middle phalanx and left third proximal phalanx, without definite erosion. Dermal thickening and subcutaneous edema in the bilateral feet and lower legs, correlate for clinical findings of cellulitis. No definite fluid collection is identified, however this determination is limited without contrast. Consider MRI of the feet without and with contrast for further evaluation. Renal Ultrasound 10/17/24 19:48 IMPRESSION: Bilateral cortical scarring. Mild right pelviectasis. Simple left renal cyst. Chest X-Ray 10/18/24 07:48 IMPRESSION: 1. Mild but increasing opacities in the left lower lung zone consistent with small left pleural effusion and worsening atelectasis, pneumonia, asymmetric mild pulmonary edema or some combination thereof. 2. Borderline heart size. Ankle Brachial Index 10/19/24 06:09 IMPRESSION: 1. Normal ankle-brachial indices. Labs Labs: Laboratory Results - last 24 hr 10/18/24 10/18/24 10/18/24 16:53 18:10 21:01 WBC RBC Hgb Hct MCV MCH MCHC RDW Plt Count MPV Immature Gran % (Auto) Neut % (Auto) Lymph % (Auto) [place] % (Auto) Eos % (Auto) Baso % (Auto) Lymph # (Auto) [place] # (Auto) Eos # (Auto) Baso # (Auto) Abs Immat Gran (auto) Absolute Neuts (auto) Absolute Nucleated RBC Nucleated RBC % Sodium 138 Potassium 4.9 Chloride 113 H Carbon Dioxide 14 L Anion Gap 11 BUN 75 H Creatinine 4.61 H Estim Creat Clear Calc 16 Estimated GFR 12 L Glucose 139 H POC Capillary Glucose 105 142 H Calcium 8.9 Phosphorus Magnesium Albumin Random Vancomycin 10/18/24 10/19/24 10/19/24 23:38 01:18 07:56 WBC 10.2 H RBC 2.77 L Hgb 8.7 L Hct 29.1 L MCV 105.1 H MCH 31.4 MCHC 29.9 L RDW 13.0 Plt Count 294 MPV 10.9 H Immature Gran % (Auto) 1.5 H Neut % (Auto) 78.7 H Lymph % (Auto) 9.4 L [place] % (Auto) 8.2 Eos % (Auto) 1.7 Baso % (Auto) 0.5 Lymph # (Auto) 0.95 [place] # (Auto) 0.8 H Eos # (Auto) 0.2 Baso # (Auto) 0.1 Abs Immat Gran (auto) 0.15 H Absolute Neuts (auto) 8.0 H Absolute Nucleated RBC 0.000 Nucleated RBC % 0.0 Sodium 135 L Potassium 4.8 Chloride 110 H Carbon Dioxide 16 L Anion Gap 9 BUN 77 H Creatinine 4.60 H Estim Creat Clear Calc 16 Estimated GFR 12 L Glucose 107 POC Capillary Glucose 130 H 89 Calcium 9.0 Phosphorus 6.0 H Magnesium 1.5 L Albumin 2.8 L Random Vancomycin 16.9 10/19/24 12:24 WBC RBC Hgb Hct MCV MCH MCHC RDW Plt Count MPV Immature Gran % (Auto) Neut % (Auto) Lymph % (Auto) [place] % (Auto) Eos % (Auto) Baso % (Auto) Lymph # (Auto) [place] # (Auto) Eos # (Auto) Baso # (Auto) Abs Immat Gran (auto) Absolute Neuts (auto) Absolute Nucleated RBC Nucleated RBC % Sodium Potassium Chloride Carbon Dioxide Anion Gap BUN Creatinine Estim Creat Clear Calc Estimated GFR Glucose POC Capillary Glucose 95 Calcium Phosphorus Magnesium Albumin Random Vancomycin
--- NOTE | 2024-10-19 16:05 | PM.IMPN ---
Progress Note: A&P Assessment and Plan (1) Acute renal failure: Qualifiers: Acute renal failure type: unspecified Qualified Code(s): N17.9 - Acute kidney failure, unspecified Code(s): N17.9 - Acute kidney failure, unspecified Status: Acute (2) Stage 4 chronic kidney disease: Code(s): N18.4 - Chronic kidney disease, stage 4 (severe) Status: Acute (3) Hyperkalemia: Code(s): E87.5 - Hyperkalemia Status: Acute (4) Cellulitis of both lower extremities: Code(s): L03.115 - Cellulitis of right lower limb; L03.116 - Cellulitis of left lower limb Status: Acute (5) Osteomyelitis of toe: Code(s): M86.9 - Osteomyelitis, unspecified Status: Acute (6) Dry gangrene: Code(s): I96 - Gangrene, not elsewhere classified Status: Acute (7) Infestation, maggots: Code(s): B87.9 - Myiasis, unspecified Status: Acute (8) Generalized weakness: Code(s): R53.1 - Weakness Status: Acute (9) Anemia: Code(s): D64.9 - Anemia, unspecified Status: Acute (10) UTI (urinary tract infection): Qualifiers: Hematuria presence: with hematuria Urinary tract infection type: acute cystitis Qualified Code(s): N30.01 - Acute cystitis with hematuria Code(s): N39.0 - Urinary tract infection, site not specified Status: Acute (11) Sepsis without septic shock: Code(s): A41.9 - Sepsis, unspecified organism Status: Acute Plan 78-year-old male with history of CKD stage [address] Gleason, hypertension, chronic anemia, BPH presents to [facility] ER on 10/17/2024. Brought to the ED by EMS. He lives at home with his and daughter and they take care of him. He reports he fell off the toilet and had difficulty getting up off the ground. Reports being weak. Says he has wounds to his feet and toes for a month now. Maggots were found in his toes. Exposed bone. BUN on admission 75, serum creatinine 5.61. Tachypneic. [facility] reports serum creatinine in July to be 2.[address] of bilateral lower extremities showed skin defects, erosion, bone exposure. Cultures were taken, broad-spectrum antibiotics started. General surgery and nephrology consulted. He had hyperkalemia and he was given IV fluids. ----- Sepsis without shock with end-organ damage as evidence by osteomyelitis, tachypnea and leukocytosis, and acute renal failure present on admission. The maggots were cleaned out. General surgery consultation completed. Obvious evidence of osteomyelitis dry gangrene. At this time toes are viable, however general surgery continues to follow. Advised wound care/wound consultation. Cefepime metronidazole and vancomycin started on admission 10/17/2024, no fever, no active drainage or cellulitis, no pain, sepsis parameters have improved, leukocytosis greatly improving. Changed to p.o. regimen with ciprofloxacin 500 mg p.o. q.h.s., Flagyl 500 mg p.o. q.8 hour, doxycycline 100 mg p.o. b.i.d. 10/19/2024. ABIs normal. Continue to monitor urine and blood cultures. Nephrology continues to follow for acute renal failure. He is producing urine. Serum creatinine slowly improving. Potassium elevated at 5.5. Was given 2 doses of Lokelma 10 mg p.o., hyperkalemia has resolved. Continue sodium bicarbonate set D5 mEq in sodium chloride at 100 cc/hour. Continue sodium bicarbonate tabs 1300 mg p.o. b.i.d.. Continue Renvela. Anemia, multifactorial. Stable. 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 b.i.d. on 10/18/2024. PT OT evaluations ongoing for weakness. Patient wishes to be full code. Diabetic diet and renal dialysis diet. Start heparin 5000 units subcutaneous b.i.d. on 10/19/2024. Hold SCDs/stockings due to bilateral lower extremity wounds. Subjective Date/time seen: 10/19/24 16:05 Interval history: No major acute overnight events. Denies any pain in the feet today. Denies fever. Review of Systems Review of Systems: All systems reviewed & are unremarkable except as noted in HPI and below (Subjective) Exam Const: General: comfortable and no acute distress Other: A&O x3 HENMT: Mouth: Yes moist mucous membranes Eyes: Pupils: Equal, round and reactive pupils present Neck: Neck: supple Resp: Effort & Inspection: normal respiratory effort Auscultation: clear to auscultation bilaterally Cardio: Rate: regular rate Rhythm: regular rhythm GI: Inspection: non-distended GI Palp: Yes Soft to palpation Extrem: Other: No active discharge from wounds. No tenderness to palpation or erythema. Chronic appearing thickening of skin Objective Data Vital Signs Vital Signs: Vital Signs - 24 hr 10/18/24 20:01 10/18/24 21:03 10/18/24 21:08 Temperature 97.9 F Pulse Rate 60 60 60 Respiratory Rate 18 Blood Pressure 117/43 L Pulse Oximetry 97 Oxygen Delivery 10/18/24 21:12 10/19/24 00:00 10/19/24 00:03 Temperature Pulse Rate 60 60 60 Respiratory Rate Blood Pressure Pulse Oximetry Oxygen Delivery 10/19/24 04:01 10/19/24 05:34 10/19/24 07:46 Temperature 97.8 F Pulse Rate 60 68 Respiratory Rate 18 Blood Pressure 108/46 L Pulse Oximetry 99 Oxygen Delivery Room Air 10/19/24 08:00 10/19/24 09:01 10/19/24 09:09 Temperature Pulse Rate 60 Respiratory Rate 18 Blood Pressure 139/50 L Pulse Oximetry 96 Oxygen Delivery Room Air 10/19/24 14:00 Temperature 97.8 F Pulse Rate 61 Respiratory Rate 20 Blood Pressure 114/53 L Pulse Oximetry 96 Oxygen Delivery Intake/Output Intake/Output: Intake & Output 10/16/24 10/17/24 10/18/24 10/19/24 23:59 23:59 23:59 23:59 Intake Total 4265 1725 1525 Output Total 0 200 550 500 Balance 0 4065 1175 1025 Meds/Results Medications: Active Medications Generic Name Dose Route Start Last Admin Trade Name Freq PRN Reason Stop Dose Admin Acetaminophen 650 mg 10/17/24 03:42 Acetaminophen 325 Mg Tablet PO Q4H PRN Mild Pain (1-3) or Fever Ciprofloxacin 500 mg 10/19/24 21:00 Ciprofloxacin 500 Mg Tab PO QHS TANO Dextrose 12.5 gm 10/16/24 22:30 10/17/24 02:00 Dextrose 50% 25 Gm/50 Ml Syringe IV PUSH 12.5 gm PRN PRN Administration Hypoglycemia Protocol Doxycycline Hyclate 100 mg 10/19/24 21:00 Doxycycline Hyclate 100 Mg Tablet PO Q12HR TANO Gabapentin 100 mg 10/18/24 09:00 10/19/24 09:01 Gabapentin 100 Mg Capsule PO 100 mg Q12HR TANO Administration Glucagon 1 mg 10/16/24 22:30 Glucagon For Inj 1 Mg Vial IM PRN PRN Hypoglycemia Protocol Glucose 15 gm 10/16/24 22:30 Glucose Oral Gel 15 Gm Of Glucse In 37.5 Gm Tube PO PRN PRN Hypoglycemia Protocol Heparin Sodium (Porcine) 5,000 units 10/19/24 21:00 Heparin Sodium 5,000 Units/Ml Vial SUB-Q Q12HR TANO Hydralazine HCl 50 mg 10/17/24 09:00 10/19/24 15:19 Hydralazine Hcl 50 Mg Tablet PO 50 mg Q8HR ATNO Administration Dextrose 1,000 mls @ 100 mls/hr 10/16/24 22:30 Dextrose 5% 1,000 Ml IVPB PRN PRN Hypoglycemia Protocol Sodium Bicarbonate 75 meq/ 1,075 mls @ 100 mls/hr 10/17/24 11:10 10/19/24 05:33 Sodium Chloride IV CONT 100 mls/hr .[id number] TANO Administration Metoprolol Tartrate 50 mg 10/17/24 09:00 10/19/24 09:01 Metoprolol Tartrate 50 Mg Tab PO 50 mg Q12H TANO Administration Metronidazole 500 mg 10/19/24 14:00 10/19/24 15:19 Metronidazole 500 Mg Tablet PO 500 mg Q8HR TANO Administration Morphine Sulfate 4 mg 10/17/24 03:42 Morphine Sulfate (*Crx) 4 Mg/Ml Inj IV PUSH Q2H PRN Pain Rated 7-10 Nifedipine 60 mg 10/17/24 09:00 10/19/24 09:01 Nifedipine 30 Mg Tab.Er.24 PO 60 mg DAILY TANO Administration Ondansetron HCl 4 mg 10/17/24 03:42 Ondansetron Inj 4 Mg/2 Ml Vial IV PUSH Q4H PRN Nausea Oxycodone/Acetaminophen 1 tablet 10/17/24 11:42 10/19/24 09:08 Oxycodone/Acetaminophen (*Crx) 5-325 Mg Tablet PO 1 tablet Q4H PRN Administration Pain Rated 7-10 Ropinirole HCl 1 mg 10/17/24 21:00 10/18/24 21:09 Ropinirole Hcl 1 Mg Tablet PO 1 mg HS TANO Administration Sevelamer Carbonate 800 mg 10/17/24 12:00 10/19/24 14:04 Sevelamer Carbonate 800 Mg Tablet PO Not Given TIDWM TANO Sodium Bicarbonate 1,300 mg 10/17/24 09:00 10/19/24 09:01 Sodium Bicarbonate Tab 650 Mg Tablet PO 1,300 mg BID TANO Administration Radiology Results: ITS Impressions Lower Extremity CT 10/16/24 23:39 IMPRESSION: Skin defect over the right second toe, with possible bone exposure, without focal erosion. Skin defect over the left second PIP joint, with suggestion of early erosions on either side of the joint concerning for infection with joint space involvement. Skin defect over the left third DIP joint, with early erosion concerning for infection in the third middle phalanx and possible DIP joint involvement. Skin defects with possible exposure of bone at the distal ends of the left second middle phalanx and left third proximal phalanx, without definite erosion. Dermal thickening and subcutaneous edema in the bilateral feet and lower legs, correlate for clinical findings of cellulitis. No definite fluid collection is identified, however this determination is limited without contrast. Consider MRI of the feet without and with contrast for further evaluation. Lower Extremity CT 10/16/24 23:39 IMPRESSION: Skin defect over the right second toe, with possible bone exposure, without focal erosion. Skin defect over the left second PIP joint, with suggestion of early erosions on either side of the joint concerning for infection with joint space involvement. Skin defect over the left third DIP joint, with early erosion concerning for infection in the third middle phalanx and possible DIP joint involvement. Skin defects with possible exposure of bone at the distal ends of the left second middle phalanx and left third proximal phalanx, without definite erosion. Dermal thickening and subcutaneous edema in the bilateral feet and lower legs, correlate for clinical findings of cellulitis. No definite fluid collection is identified, however this determination is limited without contrast. Consider MRI of the feet without and with contrast for further evaluation. Renal Ultrasound 10/17/24 19:48 IMPRESSION: Bilateral cortical scarring. Mild right pelviectasis. Simple left renal cyst. Chest X-Ray 10/18/24 07:48 IMPRESSION: 1. Mild but increasing opacities in the left lower lung zone consistent with small left pleural effusion and worsening atelectasis, pneumonia, asymmetric mild pulmonary edema or some combination thereof. 2. Borderline heart size. Ankle Brachial Index 10/19/24 06:09 IMPRESSION: 1. Normal ankle-brachial indices. Labs Labs: Laboratory Results - last 24 hr 10/18/24 10/18/24 10/18/24 16:53 18:10 21:01 WBC RBC Hgb Hct MCV MCH MCHC RDW Plt Count MPV Immature Gran % (Auto) Neut % (Auto) Lymph % (Auto) [place] % (Auto) Eos % (Auto) Baso % (Auto) Lymph # (Auto) [place] # (Auto) Eos # (Auto) Baso # (Auto) Abs Immat Gran (auto) Absolute Neuts (auto) Absolute Nucleated RBC Nucleated RBC % Sodium 138 Potassium 4.9 Chloride 113 H Carbon Dioxide 14 L Anion Gap 11 BUN 75 H Creatinine 4.61 H Estim Creat Clear Calc 16 Estimated GFR 12 L Glucose 139 H POC Capillary Glucose 105 142 H Calcium 8.9 Phosphorus Magnesium Albumin Random Vancomycin 10/18/24 10/19/24 10/19/24 23:38 01:18 07:56 WBC 10.2 H RBC 2.77 L Hgb 8.7 L Hct 29.1 L MCV 105.1 H MCH 31.4 MCHC 29.9 L RDW 13.0 Plt Count 294 MPV 10.9 H Immature Gran % (Auto) 1.5 H Neut % (Auto) 78.7 H Lymph % (Auto) 9.4 L [place] % (Auto) 8.2 Eos % (Auto) 1.7 Baso % (Auto) 0.5 Lymph # (Auto) 0.95 [place] # (Auto) 0.8 H Eos # (Auto) 0.2 Baso # (Auto) 0.1 Abs Immat Gran (auto) 0.15 H Absolute Neuts (auto) 8.0 H Absolute Nucleated RBC 0.000 Nucleated RBC % 0.0 Sodium 135 L Potassium 4.8 Chloride 110 H Carbon Dioxide 16 L Anion Gap 9 BUN 77 H Creatinine 4.60 H Estim Creat Clear Calc 16 Estimated GFR 12 L Glucose 107 POC Capillary Glucose 130 H 89 Calcium 9.0 Phosphorus 6.0 H Magnesium 1.5 L Albumin 2.8 L Random Vancomycin 16.9 10/19/24 12:24 WBC RBC Hgb Hct MCV MCH MCHC RDW Plt Count MPV Immature Gran % (Auto) Neut % (Auto) Lymph % (Auto) [place] % (Auto) Eos % (Auto) Baso % (Auto) Lymph # (Auto) [place] # (Auto) Eos # (Auto) Baso # (Auto) Abs Immat Gran (auto) Absolute Neuts (auto) Absolute Nucleated RBC Nucleated RBC % Sodium Potassium Chloride Carbon Dioxide Anion Gap BUN Creatinine Estim Creat Clear Calc Estimated GFR Glucose POC Capillary Glucose 95 Calcium Phosphorus Magnesium Albumin Random Vancomycin
[2024-10-19] MEDS: DOXYCYCLINE HYCLATE 100 MG TABLET PO (21:13)
[2024-10-19] MEDS: CIPROFLOXACIN 500 MG TAB PO (21:14)
[2024-10-20] VITALS (11 sets, daily range): BP systolic 98–139; BP diastolic 41–50; PULSE 60–65; RESP 18–20; TEMP 36.4–36.7; O2SAT 95–99
[2024-10-20 05:25] LABS: Hematocrit 25.7 % (42.0-52.0); Hemoglobin 7.8 g/dL (14.0-18.0); Immature Granulocyte Percent A 1.5 % (0-0.5); Lymphocytes Absolute Auto 0.78 K/mm3 (0.9-3.2); Mean Corpuscular HGB Conc 30.4 g/dl (32-36); Mean Corpuscular Hemoglobin 31.7 pg (26-34); Mean Corpuscular Volume 104.5 fl (80-100); Nucleated Red Blood Cells Absolute Auto 0.000 K/mm3 (0.0-0.012); Nucleated Red Blood Cells Perc 0.0 % (0.0-0.2); Platelet Count Result 237 k/mm3 (150-375); Red Blood Count 2.46 M/mm3 (4.6-6.20); White Blood Count 7.5 K/mm3 (4.5-10.0)
[2024-10-20 05:47] LABS: Albumin Level 2.6 g/dL (3.5-5.1); Anion Gap 8 mmol/L (4-12); Blood Urea Nitrogen 74 mg/dL (9-20); Calcium 8.8 mg/dL (8.4-10.2); Carbon Dioxide 17 mmol/L (22-30); Chloride 113 mmol/L (98-107); Estimated CRCL calculation 19 ml/min; Estimated Glomerular Filt Rate 15; Glucose 104 mg/dL (65-110); Magnesium 1.4 mg/dL (1.6-2.3); Potassium 4.7 mmol/L (3.4-5.0); Sodium 138 mmol/L (137-145)
[2024-10-20] MEDS: ACETAMINOPHEN 325 MG TABLET 650 MG PO (05:56)
[2024-10-20] MEDS: SODIUM BICARBONATE TAB 650 MG TABLET 1300 MG PO ×2 (09:20→16:14)
[2024-10-20] MEDS: DOXYCYCLINE HYCLATE 100 MG TABLET PO ×2 (09:20→19:58)
[2024-10-20] MEDS: GABAPENTIN 100 MG CAPSULE PO ×2 (09:21→19:57)
[2024-10-20] MEDS: SEVELAMER CARBONATE 800 MG TABLET PO ×3 (09:21→16:14)
--- NOTE | 2024-10-20 10:47 | P.PNNP_ITS ---
Progress Note: A&P Assessment and Plan (1) Acute kidney injury: Code(s): N17.9 - Acute kidney failure, unspecified Status: Acute Assessment and Plan: * slow improvement noted * as evidence of by admission and AM labs (on 10/17) * repeat labs done in ER (10/17 at 1:50am was likely a lab error) * suspect multifactorial etiology: * infection/early sepsis [UTI + cellulitis +/- osteomyelitis(?)] * pre-renal factors * use of NATHALIE-I prior to admission * use of diuretics prior to admission * other(?) * evaluation to date noted: * UA suggests infection * urine eosinophils negative * urine electrolytes prerenal (FeUrea) * moderate proteinuria * CPK mildy elevated but not enough to affect kidney function * renal ultrasound c/w CKD * on bicarb fluids * follow trend of repeat labs and UOP (2) Stage 4 chronic kidney disease: Code(s): N18.4 - Chronic kidney disease, stage 4 (severe) Status: Acute Assessment and Plan: * per patient, GFR has fluctuated to extremes * per outpatient labs done at [facility] (by verbal report): * 09/07/24 - creatinine 3.01mg/dl (GFR 20) * 08/03/24 - creatinine 2.44mg/dl (GFR 26) * presumably due to hypertension, CHF(?), vascular disease, and age-related change * follows with Dr. Arian Gleason for management of his chronic kidney disease (3) Hyperkalemia: Code(s): E87.5 - Hyperkalemia Status: Acute Assessment and Plan: * resolved * due to KURTIS, NATHALIE-I use, and acidosis * s/p medical management * follow trend of repeat K+ (4) Metabolic acidosis: Code(s): E87.20 - Acidosis, unspecified Status: Acute Assessment and Plan: * improving * acute on chronic * on outpatient sodium bicarbonate * acute worsening secondary to KURTIS and IVF resuscitation * added bicarbonate to IVFs * remains on oral sodium bicarbonate * follow CO2 levels (5) Cellulitis of both lower extremities: Code(s): L03.115 - Cellulitis of right lower limb; L03.116 - Cellulitis of left lower limb Status: Acute Assessment and Plan: * as noted on presentation * complicated by multiple skin wounds/defects/erosions * possible osteomyelitis(?) * CT of bilateral lower extremities noted: * skin defect over the right second toe, with possible bone exposure, without focal erosion * skin defect over the left second PIP joint, with suggestion of early erosions on either side of the joint concerning for infection with joint space involvement * skin defect over the left third DIP joint, with early erosion concerning for infection in the third middle phalanx and possible DIP joint involvement * skin defects with possible exposure of bone at the distal ends of the left second middle phalanx and left third proximal phalanx, without definite erosion * dermal thickening and subcutaneous edema in the bilateral feet and lower legs, correlate for clinical findings of cellulitis * no definite fluid collection is identified, however this determination is limited without contrast * Surgery recommendations noted * follow culture data * local wound care * on antibiotics (6) UTI (urinary tract infection): Qualifiers: Hematuria presence: with hematuria Urinary tract infection type: acute cystitis Qualified Code(s): N30.01 - Acute cystitis with hematuria Code(s): N39.0 - Urinary tract infection, site not specified Status: Acute Assessment and Plan: * as suggested by admission UA * follow culture data * on antibiotics (7) Anemia: Code(s): D64.9 - Anemia, unspecified Status: Acute Assessment and Plan: * due to KURTIS, CKD, and acute illness * anemia studies noted: * evidence of iron deficiency * although not a candidate for IV iron given acute infection * empiric MURRAY while hospitalized * follow trend of H/H (8) Generalized weakness: Code(s): R53.1 - Weakness Status: Acute Assessment and Plan: * s/p fall prior to admission * suspect due to acute illness (infection, KURTIS, hyperkalemia, acidosis...etc) * PT/OT as tolerated Will continue to follow. L Subjective Date/time seen: 10/20/24 10:47 Interval history: Follow-up for acute kidney injury/acute renal failure on chronic kidney disease. Renal function/creatinine, acidosis, and potassium all appears to be improving/stabilizing albeit extremely slowly; no apparent distress noted at the time of my visit; no other issues/events overnight or earlier this morning. Exam 2 Narrative: General: elderly but WD/WN male in NAD Heart: normal S1 and S2; no rub Lungs: clear anteriorly Abdomen: soft, nontender, nondistended, positive bowel sounds Extremities: no cyanosis or clubbing; reduced erythema present Skin: bilateral toe ulcerations/wounds noted Objective Data Vital Signs Vital Signs: Vital Signs Temp Pulse Resp BP Pulse Ox O2 Del Method 10/20/24 10:35 Room Air 10/20/24 09:21 60 10/20/24 09:21 97 Room Air 10/20/24 09:21 60 10/20/24 09:18 60 98/42 L 98 10/20/24 05:46 97.7 F 60 18 131/49 L 95 10/20/24 00:00 60 10/19/24 21:13 60 10/19/24 20:55 60 10/19/24 20:15 98.2 F 60 19 124/48 L 95 10/19/24 20:01 60 10/19/24 16:20 60 10/19/24 14:00 97.8 F 61 20 114/53 L 96 10/19/24 12:00 60 Intake/Output Intake/Output: Intake & Output 10/17/24 10/18/24 10/19/24 10/20/24 23:59 23:59 23:59 23:59 Intake Total 4265 1725 3390 360 Output Total 200 550 950 275 Balance 4065 1175 2440 85 Meds/Results Medications: Active Medications Generic Name Dose Route Start Last Admin Trade Name Freq PRN Reason Stop Dose Admin Acetaminophen 650 mg 10/17/24 03:42 10/20/24 05:56 Acetaminophen 325 Mg Tablet PO 650 mg Q4H PRN Administration Mild Pain (1-3) or Fever Ciprofloxacin 500 mg 10/19/24 21:00 10/19/24 21:14 Ciprofloxacin 500 Mg Tab PO 500 mg QHS TANO Administration Dextrose 12.5 gm 10/16/24 22:30 10/17/24 02:00 Dextrose 50% 25 Gm/50 Ml Syringe IV PUSH 12.5 gm PRN PRN Administration Hypoglycemia Protocol Doxycycline Hyclate 100 mg 10/19/24 21:00 10/20/24 09:20 Doxycycline Hyclate 100 Mg Tablet PO 100 mg Q12HR TANO Administration Gabapentin 100 mg 10/18/24 09:00 10/20/24 09:21 Gabapentin 100 Mg Capsule PO 100 mg Q12HR TANO Administration Glucagon 1 mg 10/16/24 22:30 Glucagon For Inj 1 Mg Vial IM PRN PRN Hypoglycemia Protocol Glucose 15 gm 10/16/24 22:30 Glucose Oral Gel 15 Gm Of Glucse In 37.5 Gm Tube PO PRN PRN Hypoglycemia Protocol Heparin Sodium (Porcine) 5,000 units 10/19/24 21:00 10/20/24 09:24 Heparin Sodium 5,000 Units/Ml Vial SUB-Q 5,000 units Q12HR TANO Administration Hydralazine HCl 50 mg 10/17/24 09:00 10/20/24 05:56 Hydralazine Hcl 50 Mg Tablet PO 50 mg Q8HR TANO Administration Dextrose 1,000 mls @ 100 mls/hr 10/16/24 22:30 Dextrose 5% 1,000 Ml IVPB PRN PRN Hypoglycemia Protocol Sodium Bicarbonate 75 meq/ 1,075 mls @ 100 mls/hr 10/17/24 11:10 10/19/24 21:18 Sodium Chloride IV CONT 100 mls/hr .[id number] TANO Administration Metoprolol Tartrate 50 mg 10/17/24 09:00 10/20/24 09:21 Metoprolol Tartrate 50 Mg Tab PO Not Given Q12H [facility] Metronidazole 500 mg 10/19/24 14:00 10/20/24 05:56 Metronidazole 500 Mg Tablet PO 500 mg Q8HR TANO Administration Morphine Sulfate 4 mg 10/17/24 03:42 Morphine Sulfate (*Crx) 4 Mg/Ml Inj IV PUSH Q2H PRN Pain Rated 7-10 Nifedipine 60 mg 10/17/24 09:00 10/20/24 09:21 Nifedipine 30 Mg Tab.Er.24 PO Not Given DAILY [facility] Ondansetron HCl 4 mg 10/17/24 03:42 Ondansetron Inj 4 Mg/2 Ml Vial IV PUSH Q4H PRN Nausea Oxycodone/Acetaminophen 1 tablet 10/17/24 11:42 10/19/24 09:08 Oxycodone/Acetaminophen (*Crx) 5-325 Mg Tablet PO 1 tablet Q4H PRN Administration Pain Rated 7-10 Ropinirole HCl 1 mg 10/17/24 21:00 10/19/24 21:13 Ropinirole Hcl 1 Mg Tablet PO 1 mg HS TANO Administration Sevelamer Carbonate 800 mg 10/17/24 12:00 10/20/24 09:21 Sevelamer Carbonate 800 Mg Tablet PO 800 mg TIDWM TANO Administration Sodium Bicarbonate 1,300 mg 10/17/24 09:00 10/20/24 09:20 Sodium Bicarbonate Tab 650 Mg Tablet PO 1,300 mg BID TANO Administration Radiology Results: ITS Impressions Lower Extremity CT 10/16/24 23:39 IMPRESSION: Skin defect over the right second toe, with possible bone exposure, without focal erosion. Skin defect over the left second PIP joint, with suggestion of early erosions on either side of the joint concerning for infection with joint space involvement. Skin defect over the left third DIP joint, with early erosion concerning for infection in the third middle phalanx and possible DIP joint involvement. Skin defects with possible exposure of bone at the distal ends of the left second middle phalanx and left third proximal phalanx, without definite erosion. Dermal thickening and subcutaneous edema in the bilateral feet and lower legs, correlate for clinical findings of cellulitis. No definite fluid collection is identified, however this determination is limited without contrast. Consider MRI of the feet without and with contrast for further evaluation. Lower Extremity CT 10/16/24 23:39 IMPRESSION: Skin defect over the right second toe, with possible bone exposure, without focal erosion. Skin defect over the left second PIP joint, with suggestion of early erosions on either side of the joint concerning for infection with joint space involvement. Skin defect over the left third DIP joint, with early erosion concerning for infection in the third middle phalanx and possible DIP joint involvement. Skin defects with possible exposure of bone at the distal ends of the left second middle phalanx and left third proximal phalanx, without definite erosion. Dermal thickening and subcutaneous edema in the bilateral feet and lower legs, correlate for clinical findings of cellulitis. No definite fluid collection is identified, however this determination is limited without contrast. Consider MRI of the feet without and with contrast for further evaluation. Renal Ultrasound 10/17/24 19:48 IMPRESSION: Bilateral cortical scarring. Mild right pelviectasis. Simple left renal cyst. Chest X-Ray 10/18/24 07:48 IMPRESSION: 1. Mild but increasing opacities in the left lower lung zone consistent with small left pleural effusion and worsening atelectasis, pneumonia, asymmetric mild pulmonary edema or some combination thereof. 2. Borderline heart size. Ankle Brachial Index 10/19/24 06:09 IMPRESSION: 1. Normal ankle-brachial indices. Labs Labs: Laboratory Tests 10/20/24 04:45 10/20/24 04:45 Calcium 8.8 Phosphorus 5.5 H Magnesium 1.4 L Albumin 2.6 L Microbiology 10/16/24 22:48 Blood Blood Culture - Preliminary 10/16/24 21:34 Blood Blood Culture - Preliminary
--- NOTE | 2024-10-20 11:56 | PM.PNGS ---
Progress Note: A&P Assessment and Plan (1) Osteomyelitis of toe: Code(s): M86.9 - Osteomyelitis, unspecified Status: Acute Assessment and Plan: Patient's lower extremities and toes unchanged from yesterday. WBC now normalized at 7.5. We have agreed upon conservative management of the wounds, as amputation may delay healing. ABIs normal, but findings on exam consistent with venous insufficiency. Continue local wound care with betadine swabs, silver gel, vaseline gauze, and bandages. Stable for discharge from a surgical standpoint. Follow up with [facility] in two weeks. If D/c'd to SNF, confirm wound care availability. (2) Cellulitis of both lower extremities: Code(s): L03.115 - Cellulitis of right lower limb; L03.116 - Cellulitis of left lower limb Status: Acute Assessment and Plan: Improving. Continue antibiotics. (3) Acute renal failure: Qualifiers: Acute renal failure type: unspecified Qualified Code(s): N17.9 - Acute kidney failure, unspecified Code(s): N17.9 - Acute kidney failure, unspecified Status: Acute Assessment and Plan: Management as per Nephrology. Plan I have discussed the patient's case and plan of care with Dr. Zarate. Subjective Subjective Date/Time Seen: 10/20/24 11:56 Patient reports: no new complaints Interval history: Patient doing well today. Afebrile. WBC 7.5, down from 10.2. Wound cleansed and redressed today at the bedside. LINDSAY yesterday was normal, however there is a chance this could be skewed due to vessel calcification. 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 Some exposed bone on some of the distal phalanxes are noted. No wet gangrene or ascending cellulitis. Chronic changes of peripheral vascular disease below the knee in the lower extremities bilaterally. Objective Data Vital Signs Vital Signs: Vital Signs - 24 hr 10/19/24 12:00 10/19/24 14:00 10/19/24 16:20 Temperature 97.8 F Pulse Rate 60 61 60 Respiratory Rate 20 Blood Pressure 114/53 L Pulse Oximetry 96 Oxygen Delivery 10/19/24 20:01 10/19/24 20:15 10/19/24 20:55 Temperature 98.2 F Pulse Rate 60 60 60 Respiratory Rate 19 Blood Pressure 124/48 L Pulse Oximetry 95 Oxygen Delivery 10/19/24 21:13 10/20/24 00:00 10/20/24 05:46 Temperature 97.7 F Pulse Rate 60 60 60 Respiratory Rate 18 Blood Pressure 131/49 L Pulse Oximetry 95 Oxygen Delivery 10/20/24 09:18 10/20/24 09:21 10/20/24 09:21 Temperature Pulse Rate 60 60 Respiratory Rate Blood Pressure 98/42 L Pulse Oximetry 98 97 Oxygen Delivery Room Air 10/20/24 09:21 10/20/24 10:35 Temperature Pulse Rate 60 Respiratory Rate Blood Pressure Pulse Oximetry Oxygen Delivery Room Air Intake/Output Intake/Output: Intake & Output 10/17/24 10/18/24 10/19/24 10/20/24 23:59 23:59 23:59 23:59 Intake Total 4265 1725 3390 360 Output Total 200 550 950 275 Balance 4065 1175 2440 85 Meds/Results Medications: Active Medications Generic Name Dose Route Start Last Admin Trade Name Freq PRN Reason Stop Dose Admin Acetaminophen 650 mg 10/17/24 03:42 10/20/24 05:56 Acetaminophen 325 Mg Tablet PO 650 mg Q4H PRN Administration Mild Pain (1-3) or Fever Ciprofloxacin 500 mg 10/19/24 21:00 10/19/24 21:14 Ciprofloxacin 500 Mg Tab PO 500 mg QHS TANO Administration Dextrose 12.5 gm 10/16/24 22:30 10/17/24 02:00 Dextrose 50% 25 Gm/50 Ml Syringe IV PUSH 12.5 gm PRN PRN Administration Hypoglycemia Protocol Doxycycline Hyclate 100 mg 10/19/24 21:00 10/20/24 09:20 Doxycycline Hyclate 100 Mg Tablet PO 100 mg Q12HR TANO Administration Epoetin Darren-epbx 10,000 units 10/21/24 09:00 Epoetin Darren-Epbx 10,000 Units/Ml Vial SUB-Q [id number] TANO Gabapentin 100 mg 10/18/24 09:00 10/20/24 09:21 Gabapentin 100 Mg Capsule PO 100 mg Q12HR TANO Administration Glucagon 1 mg 10/16/24 22:30 Glucagon For Inj 1 Mg Vial IM PRN PRN Hypoglycemia Protocol Glucose 15 gm 10/16/24 22:30 Glucose Oral Gel 15 Gm Of Glucse In 37.5 Gm Tube PO PRN PRN Hypoglycemia Protocol Heparin Sodium (Porcine) 5,000 units 10/19/24 21:00 10/20/24 09:24 Heparin Sodium 5,000 Units/Ml Vial SUB-Q 5,000 units Q12HR TANO Administration Hydralazine HCl 50 mg 10/17/24 09:00 10/20/24 05:56 Hydralazine Hcl 50 Mg Tablet PO 50 mg Q8HR TANO Administration Dextrose 1,000 mls @ 100 mls/hr 10/16/24 22:30 Dextrose 5% 1,000 Ml IVPB PRN PRN Hypoglycemia Protocol Sodium Bicarbonate 75 meq/ 1,075 mls @ 100 mls/hr 10/17/24 11:10 10/19/24 21:18 Sodium Chloride IV CONT 100 mls/hr .[id number] TANO Administration Metoprolol Tartrate 50 mg 10/17/24 09:00 10/20/24 09:21 Metoprolol Tartrate 50 Mg Tab PO Not Given Q12H [facility] Metronidazole 500 mg 10/19/24 14:00 10/20/24 05:56 Metronidazole 500 Mg Tablet PO 500 mg Q8HR [facility] Administration Morphine Sulfate 4 mg 10/17/24 03:42 Morphine Sulfate (*Crx) 4 Mg/Ml Inj IV PUSH Q2H PRN Pain Rated 7-10 Nifedipine 60 mg 10/17/24 09:00 10/20/24 09:21 Nifedipine 30 Mg Tab.Er.24 PO Not Given DAILY [facility] Ondansetron HCl 4 mg 10/17/24 03:42 Ondansetron Inj 4 Mg/2 Ml Vial IV PUSH Q4H PRN Nausea Oxycodone/Acetaminophen 1 tablet 10/17/24 11:42 10/19/24 09:08 Oxycodone/Acetaminophen (*Crx) 5-325 Mg Tablet PO 1 tablet Q4H PRN Administration Pain Rated 7-10 Ropinirole HCl 1 mg 10/17/24 21:00 10/19/24 21:13 Ropinirole Hcl 1 Mg Tablet PO 1 mg HS TANO Administration Sevelamer Carbonate 800 mg 10/17/24 12:00 10/20/24 09:21 Sevelamer Carbonate 800 Mg Tablet PO 800 mg TIDWM TANO Administration Sodium Bicarbonate 1,300 mg 10/17/24 09:00 10/20/24 09:20 Sodium Bicarbonate Tab 650 Mg Tablet PO 1,300 mg BID TANO Administration Radiology Results: ITS Impressions Lower Extremity CT 10/16/24 23:39 IMPRESSION: Skin defect over the right second toe, with possible bone exposure, without focal erosion. Skin defect over the left second PIP joint, with suggestion of early erosions on either side of the joint concerning for infection with joint space involvement. Skin defect over the left third DIP joint, with early erosion concerning for infection in the third middle phalanx and possible DIP joint involvement. Skin defects with possible exposure of bone at the distal ends of the left second middle phalanx and left third proximal phalanx, without definite erosion. Dermal thickening and subcutaneous edema in the bilateral feet and lower legs, correlate for clinical findings of cellulitis. No definite fluid collection is identified, however this determination is limited without contrast. Consider MRI of the feet without and with contrast for further evaluation. Lower Extremity CT 10/16/24 23:39 IMPRESSION: Skin defect over the right second toe, with possible bone exposure, without focal erosion. Skin defect over the left second PIP joint, with suggestion of early erosions on either side of the joint concerning for infection with joint space involvement. Skin defect over the left third DIP joint, with early erosion concerning for infection in the third middle phalanx and possible DIP joint involvement. Skin defects with possible exposure of bone at the distal ends of the left second middle phalanx and left third proximal phalanx, without definite erosion. Dermal thickening and subcutaneous edema in the bilateral feet and lower legs, correlate for clinical findings of cellulitis. No definite fluid collection is identified, however this determination is limited without contrast. Consider MRI of the feet without and with contrast for further evaluation. Renal Ultrasound 10/17/24 19:48 IMPRESSION: Bilateral cortical scarring. Mild right pelviectasis. Simple left renal cyst. Chest X-Ray 10/18/24 07:48 IMPRESSION: 1. Mild but increasing opacities in the left lower lung zone consistent with small left pleural effusion and worsening atelectasis, pneumonia, asymmetric mild pulmonary edema or some combination thereof. 2. Borderline heart size. Ankle Brachial Index 10/19/24 06:09 IMPRESSION: 1. Normal ankle-brachial indices. Labs Labs: Laboratory Results - last 24 hr 10/19/24 10/19/24 10/19/24 12:24 17:07 20:24 WBC RBC Hgb Hct MCV MCH MCHC RDW Plt Count MPV Immature Gran % (Auto) Neut % (Auto) Lymph % (Auto) [place] % (Auto) Eos % (Auto) Baso % (Auto) Lymph # (Auto) [place] # (Auto) Eos # (Auto) Baso # (Auto) Abs Immat Gran (auto) Absolute Neuts (auto) Absolute Nucleated RBC Nucleated RBC % Sodium Potassium Chloride Carbon Dioxide Anion Gap BUN Creatinine Estim Creat Clear Calc Estimated GFR Glucose POC Capillary Glucose 95 97 129 H Calcium Phosphorus Magnesium Albumin 10/20/24 10/20/24 10/20/24 04:45 05:49 07:47 WBC 7.5 RBC 2.46 L Hgb 7.8 L Hct 25.7 L MCV 104.5 H MCH 31.7 MCHC 30.4 L RDW 13.1 Plt Count 237 MPV 11.5 H Immature Gran % (Auto) 1.5 H Neut % (Auto) 74.9 H Lymph % (Auto) 10.4 L [place] % (Auto) 11.0 H Eos % (Auto) 1.7 Baso % (Auto) 0.5 Lymph # (Auto) 0.78 L [place] # (Auto) 0.8 H Eos # (Auto) 0.1 Baso # (Auto) 0.0 Abs Immat Gran (auto) 0.11 H Absolute Neuts (auto) 5.6 Absolute Nucleated RBC 0.000 Nucleated RBC % 0.0 Sodium 138 Potassium 4.7 Chloride 113 H Carbon Dioxide 17 L Anion Gap 8 BUN 74 H Creatinine 3.92 H Estim Creat Clear Calc 19 Estimated GFR 15 L Glucose 104 POC Capillary Glucose 90 85 Calcium 8.8 Phosphorus 5.5 H Magnesium 1.4 L Albumin 2.6 L
[2024-10-20] MEDS: EPOETIN ALFA-EPBX 20,000 UNITS/ML VIAL 20000 UNITS SUB-Q (12:26)
[2024-10-20] MEDS: SODIUM BICARBONATE 8.4% 75 MEQ in SODIUM CHLORIDE 0.45% 1,000 ML 100 MEQ IV CONT (14:07)
--- NOTE | 2024-10-20 14:45 | P.PNIM_ITS ---
Progress Note: A&P Assessment and Plan (1) Acute renal failure: Qualifiers: Acute renal failure type: unspecified Qualified Code(s): N17.9 - Acute kidney failure, unspecified Code(s): N17.9 - Acute kidney failure, unspecified Status: Acute (2) Stage 4 chronic kidney disease: Code(s): N18.4 - Chronic kidney disease, stage 4 (severe) Status: Acute (3) Hyperkalemia: Code(s): E87.5 - Hyperkalemia Status: Acute (4) Cellulitis of both lower extremities: Code(s): L03.115 - Cellulitis of right lower limb; L03.116 - Cellulitis of left lower l imb Status: Acute (5) Osteomyelitis of toe: Code(s): M86.9 - Osteomyelitis, unspecified Status: Acute (6) Dry gangrene: Code(s): I96 - Gangrene, not elsewhere classified Status: Acute (7) Infestation, maggots: Code(s): B87.9 - Myiasis, unspecified Status: Acute (8) Generalized weakness: Code(s): R53.1 - Weakness Status: Acute (9) Anemia: Code(s): D64.9 - Anemia, unspecified Status: Acute (10) UTI (urinary tract infection): Qualifiers: Hematuria presence: with hematuria Urinary tract infection type: acute cystitis Qualified Code(s): N30.01 - Acute cystitis with hematuria Code(s): N39.0 - Urinary tract infection, site not specified Status: Acute (11) Sepsis without septic shock: Code(s): A41.9 - Sepsis, unspecified organism Status: Acute Plan 78-year-old male with history of CKD stage [address] Gleason, hypertension, chronic anemia, BPH presents to [facility] ER on 10/17/2024. Brought to the ED by EMS. He lives at home with his and daughter and they take care of him. He reports he fell off the toilet and had difficulty getting up off the ground. Reports being weak. Says he has wounds to his feet and toes for a month now. Maggots were found in his toes. Exposed bone. BUN on admission 75, serum creatinine 5.61. Tachypneic. [facility] reports serum creatinine in July to be 2.[address] of bilateral lower extremities showed skin defects, erosion, bone exposure. Cultures were taken, broad-spectrum antibiotics started. General surgery and nephrology consulted. He had hyperkalemia and he was given IV fluids. ----- Sepsis without shock with end-organ damage as evidence by osteomyelitis, tachypnea and leukocytosis, and acute renal failure present on admission. The maggots were cleaned out. General surgery consultation completed. Obvious evidence of osteomyelitis dry gangrene. At this time toes are viable, however general surgery continues to follow. Advised wound care/wound consultation. Cefepime metronidazole and vancomycin started on admission 10/17/2024, no fever, no active drainage or cellulitis, no pain, sepsis parameters have improved, leukocytosis greatly improving. Changed to p.o. regimen with ciprofloxacin 500 mg p.o. q.h.s., Flagyl 500 mg p.o. q.8 hour, doxycycline 100 mg p.o. b.i.d. 10/19/2024. ABIs normal. Continue to monitor urine and blood cultures. Nephrology continues to follow for acute renal failure. He is producing urine. Serum creatinine slowly improving. Potassium elevated at 5.5. Was given 2 doses of Lokelma 10 mg p.o., hyperkalemia has resolved. Continue sodium bicarbonate set D5 mEq in sodium chloride at 100 cc/hour. Continue sodium bicarbonate tabs 1300 mg p.o. b.i.d.. Continue Renvela. Anemia, multifactorial. Stable. 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 b.i.d. on 10/18/2024. PT OT evaluations ongoing for weakness. 10/20/2024: Patient stable since p.o. antibiotics have been initiated. Continue present antibiotic management. He is making urine output, continued progressive improvement in his renal function. Nephrology still following. Hemoglobin 7.8, continue to trend daily. Received 88350 units Retacrit subQ x1 on 10/20/2024. Surgery recommendations have been noted. No plan for surgical intervention, patient wants to follow-up with wound care as opposed to the general surgery on discharge. Patient wishes to be full code. Diabetic diet and renal dialysis diet. Start heparin 5000 units subcutaneous b.i.d. on 10/19/2024. Hold SCDs/stockings due to bilateral lower extremity wounds. Subjective Date/time seen: 10/20/24 14:45 Interval history: No acute overnight events. Patient reports feeling fine today. No complaints otherwise in his neuropathy pain at the heels. Advised patient we can increase his gabapentin tomorrow if his kidney function continues to improve. Review of Systems Review of Systems: All systems reviewed & are unremarkable except as noted in HPI and below (Subjective) Exam Const: General: comfortable and no acute distress Other: A&O x3 HENMT: Mouth: Yes moist mucous membranes Eyes: Pupils: Equal, round and reactive pupils present Neck: Neck: supple Resp: Effort & Inspection: normal respiratory effort Auscultation: clear to auscultation bilaterally Cardio: Rate: regular rate Rhythm: regular rhythm GI: Inspection: non-distended GI Palp: Yes Soft to palpation Extrem: Other: No active discharge from wounds. No tenderness to palpation or erythema. Chronic appearing thickening of skin Objective Data Vital Signs Vital Signs: Vital Signs - 24 hr 10/19/24 16:20 10/19/24 20:01 10/19/24 20:15 Temperature 98.2 F Pulse Rate 60 60 60 Respiratory Rate 19 Blood Pressure 124/48 L Pulse Oximetry 95 Oxygen Delivery 10/19/24 20:55 10/19/24 21:13 10/20/24 00:00 Temperature Pulse Rate 60 60 60 Respiratory Rate Blood Pressure Pulse Oximetry Oxygen Delivery 10/20/24 05:46 10/20/24 09:18 10/20/24 09:21 Temperature 97.7 F Pulse Rate 60 60 60 Respiratory Rate 18 Blood Pressure 131/49 L 98/42 L Pulse Oximetry 95 98 Oxygen Delivery 10/20/24 09:21 10/20/24 09:21 10/20/24 10:35 Temperature Pulse Rate 60 Respiratory Rate Blood Pressure Pulse Oximetry 97 Oxygen Delivery Room Air Room Air 10/20/24 12:00 10/20/24 14:00 10/20/24 14:06 Temperature 98.0 F Pulse Rate 60 60 Respiratory Rate 18 Blood Pressure 106/41 L 110/42 L Pulse Oximetry 99 Oxygen Delivery Intake/Output Intake/Output: Intake & Output 10/17/24 10/18/24 10/19/24 10/20/24 23:59 23:59 23:59 23:59 Intake Total 4265 1723 3391 1675 Output Total 200 550 950 275 Balance 4065 1172 1124 8792 Meds/Results Medications: Active Medications Generic Name Dose Route Start Last Admin Trade Name Freq PRN Reason Stop Dose Admin Acetaminophen 650 mg 10/17/24 03:42 10/20/24 05:56 Acetaminophen 325 Mg Tablet PO 650 mg Q4H PRN Administration Mild Pain (1-3) or Fever Ciprofloxacin 500 mg 10/19/24 21:00 10/19/24 21:14 Ciprofloxacin 500 Mg Tab PO 500 mg QHS TANO Administration Dextrose 12.5 gm 10/16/24 22:30 10/17/24 02:00 Dextrose 50% 25 Gm/50 Ml Syringe IV PUSH 12.5 gm PRN PRN Administration Hypoglycemia Protocol Doxycycline Hyclate 100 mg 10/19/24 21:00 10/20/24 09:20 Doxycycline Hyclate 100 Mg Tablet PO 100 mg Q12HR TANO Administration Epoetin Darren-epbx 10,000 units 10/21/24 09:00 Epoetin Darren-Epbx 10,000 Units/Ml Vial SUB-Q MOWEFR@09 TANO Gabapentin 100 mg 10/18/24 09:00 10/20/24 09:21 Gabapentin 100 Mg Capsule PO 100 mg Q12HR TANO Administration Glucagon 1 mg 10/16/24 22:30 Glucagon For Inj 1 Mg Vial IM PRN PRN Hypoglycemia Protocol Glucose 15 gm 10/16/24 22:30 Glucose Oral Gel 15 Gm Of Glucse In 37.5 Gm Tube PO PRN PRN Hypoglycemia Protocol Heparin Sodium (Porcine) 5,000 units 10/19/24 21:00 10/20/24 09:24 Heparin Sodium 5,000 Units/Ml Vial SUB-Q 5,000 units Q12HR TANO Administration Hydralazine HCl 50 mg 10/17/24 09:00 10/20/24 14:06 Hydralazine Hcl 50 Mg Tablet PO Not Given Q8HR TANO Dextrose 1,000 mls @ 100 mls/hr 10/16/24 22:30 Dextrose 5% 1,000 Ml IVPB PRN PRN Hypoglycemia Protocol Sodium Bicarbonate 75 meq/ 1,075 mls @ 100 mls/hr 10/17/24 11:10 10/20/24 14:07 Sodium Chloride IV CONT 100 mls/hr .[id number] TANO Administration Metoprolol Tartrate 50 mg 10/17/24 09:00 10/20/24 09:21 Metoprolol Tartrate 50 Mg Tab PO Not Given Q12H TANO Metronidazole 500 mg 10/19/24 14:00 10/20/24 14:06 Metronidazole 500 Mg Tablet PO 500 mg Q8HR TANO Administration Morphine Sulfate 4 mg 10/17/24 03:42 Morphine Sulfate (*Crx) 4 Mg/Ml Inj IV PUSH Q2H PRN Pain Rated 7-10 Nifedipine 60 mg 10/17/24 09:00 10/20/24 09:21 Nifedipine 30 Mg Tab.Er.24 PO Not Given DAILY TANO Ondansetron HCl 4 mg 10/17/24 03:42 Ondansetron Inj 4 Mg/2 Ml Vial IV PUSH Q4H PRN Nausea Oxycodone/Acetaminophen 1 tablet 10/17/24 11:42 10/19/24 09:08 Oxycodone/Acetaminophen (*Crx) 5-325 Mg Tablet PO 1 tablet Q4H PRN Administration Pain Rated 7-10 Ropinirole HCl 1 mg 10/17/24 21:00 10/19/24 21:13 Ropinirole Hcl 1 Mg Tablet PO 1 mg HS TANO Administration Sevelamer Carbonate 800 mg 10/17/24 12:00 10/20/24 12:09 Sevelamer Carbonate 800 Mg Tablet PO 800 mg TIDWM TANO Administration Sodium Bicarbonate 1,300 mg 10/17/24 09:00 10/20/24 09:20 Sodium Bicarbonate Tab 650 Mg Tablet PO 1,300 mg BID TANO Administration Radiology Results: ITS Impressions Lower Extremity CT 10/16/24 23:39 IMPRESSION: Skin defect over the right second toe, with possible bone exposure, without focal erosion. Skin defect over the left second PIP joint, with suggestion of early erosions on either side of the joint concerning for infection with joint space involvement. Skin defect over the left third DIP joint, with early erosion concerning for infection in the third middle phalanx and possible DIP joint involvement. Skin defects with possible exposure of bone at the distal ends of the left second middle phalanx and left third proximal phalanx, without definite erosion. Dermal thickening and subcutaneous edema in the bilateral feet and lower legs, correlate for clinical findings of cellulitis. No definite fluid collection is identified, however this determination is limited without contrast. Consider MRI of the feet without and with contrast for further evaluation. Lower Extremity CT 10/16/24 23:39 IMPRESSION: Skin defect over the right second toe, with possible bone exposure, without focal erosion. Skin defect over the left second PIP joint, with suggestion of early erosions on either side of the joint concerning for infection with joint space involvement. Skin defect over the left third DIP joint, with early erosion concerning for infection in the third middle phalanx and possible DIP joint involvement. Skin defects with possible exposure of bone at the distal ends of the left sec ond middle phalanx and left third proximal phalanx, without definite erosion. Dermal thickening and subcutaneous edema in the bilateral feet and lower legs, correlate for clinical findings of cellulitis. No definite fluid collection is identified, however this determination is limited without contrast. Consider MRI of the feet without and with contrast for further evaluation. Renal Ultrasound 10/17/24 19:48 IMPRESSION: Bilateral cortical scarring. Mild right pelviectasis. Simple left renal cyst. Chest X-Ray 10/18/24 07:48 IMPRESSION: 1. Mild but increasing opacities in the left lower lung zone consistent with small left pleural effusion and worsening atelectasis, pneumonia, asymmetric mild pulmonary edema or some combination thereof. 2. Borderline heart size. Ankle Brachial Index 10/19/24 06:09 IMPRESSION: 1. Normal ankle-brachial indices. Labs Labs: Laboratory Results - last 24 hr 10/19/24 10/19/24 10/20/24 17:07 20:24 04:45 WBC 7.5 RBC 2.46 L Hgb 7.8 L Hct 25.7 L MCV 104.5 H MCH 31.7 MCHC 30.4 L RDW 13.1 Plt Count 237 MPV 11.5 H Immature Gran % (Auto) 1.5 H Neut % (Auto) 74.9 H Lymph % (Auto) 10.4 L Ramsey % (Auto) 11.0 H Eos % (Auto) 1.7 Baso % (Auto) 0.5 Lymph # (Auto) 0.78 L Ramsey # (Auto) 0.8 H Eos # (Auto) 0.1 Baso # (Auto) 0.0 Abs Immat Gran (auto) 0.11 H Absolute Neuts (auto) 5.6 Absolute Nucleated RBC 0.000 Nucleated RBC % 0.0 Sodium 138 Potassium 4.7 Chloride 113 H Carbon Dioxide 17 L Anion Gap 8 BUN 74 H Creatinine 3.92 H Estim Creat Clear Calc 19 Estimated GFR 15 L Glucose 104 POC Capillary Glucose 97 129 H Calcium 8.8 Phosphorus 5.5 H Magnesium 1.4 L Albumin 2.6 L 10/20/24 10/20/24 10/20/24 05:49 07:47 12:02 WBC RBC Hgb Hct MCV MCH MCHC RDW Plt Count MPV Immature Gran % (Auto) Neut % (Auto) Lymph % (Auto) Ramsey % (Auto) Eos % (Auto) Baso % (Auto) Lymph # (Auto) Ramsey # (Auto) Eos # (Auto) Baso # (Auto) Abs Immat Gran (auto) Absolute Neuts (auto) Absolute Nucleated RBC Nucleated RBC % Sodium Potassium Chloride Carbon Dioxide Anion Gap BUN Creatinine Estim Creat Clear Calc Estimated GFR Glucose POC Capillary Glucose 90 85 116 H Calcium Phosphorus Magnesium Albumin
[2024-10-20] MEDS: MAGNESIUM SULF 1 GM/D5W 100 ML 1 GM/100 ML BAG IVPB (16:15)
[2024-10-20] MEDS: CIPROFLOXACIN 500 MG TAB PO (19:57)
[2024-10-20] MEDS: METOPROLOL TARTRATE 50 MG TAB PO (19:58)
[2024-10-21] VITALS (12 sets, daily range): BP systolic 94–128; BP diastolic 36–48; PULSE 59–60; RESP 16–20; TEMP 36.7–36.8; O2SAT 95–100
[2024-10-21 05:04] LABS: Hematocrit 24.7 % (42.0-52.0); Hemoglobin 7.6 g/dL (14.0-18.0); Immature Granulocyte Percent A 1.5 % (0-0.5); Lymphocytes Absolute Auto 0.74 K/mm3 (0.9-3.2); Mean Corpuscular HGB Conc 30.8 g/dl (32-36); Mean Corpuscular Hemoglobin 31.4 pg (26-34); Mean Corpuscular Volume 102.1 fl (80-100); Nucleated Red Blood Cells Absolute Auto 0.000 K/mm3 (0.0-0.012); Nucleated Red Blood Cells Perc 0.0 % (0.0-0.2); Platelet Count Result 215 k/mm3 (150-375); Red Blood Count 2.42 M/mm3 (4.6-6.20); White Blood Count 6.0 K/mm3 (4.5-10.0)
[2024-10-21 05:32] LABS: Albumin Level 2.7 g/dL (3.5-5.1); Anion Gap 8 mmol/L (4-12); Blood Urea Nitrogen 68 mg/dL (9-20); Calcium 8.8 mg/dL (8.4-10.2); Carbon Dioxide 19 mmol/L (22-30); Chloride 111 mmol/L (98-107); Estimated CRCL calculation 21 ml/min; Estimated Glomerular Filt Rate 17; Glucose 88 mg/dL (65-110); Magnesium 1.4 mg/dL (1.6-2.3); Potassium 4.3 mmol/L (3.4-5.0); Sodium 138 mmol/L (137-145)
[2024-10-21] MEDS: ONDANSETRON INJ 4 MG/2 ML VIAL IV PUSH (09:47)
[2024-10-21] MEDS: DOXYCYCLINE HYCLATE 100 MG TABLET PO ×2 (09:48→20:26)
[2024-10-21] MEDS: SODIUM BICARBONATE TAB 650 MG TABLET 1300 MG PO ×2 (09:48→16:40)
[2024-10-21] MEDS: SEVELAMER CARBONATE 800 MG TABLET PO ×3 (09:48→16:40)
[2024-10-21] MEDS: GABAPENTIN 100 MG CAPSULE PO ×2 (09:48→20:26)
[2024-10-21] MEDS: METOPROLOL TARTRATE 50 MG TAB PO (09:48)
[2024-10-21] MEDS: SODIUM BICARBONATE 8.4% 75 MEQ in SODIUM CHLORIDE 0.45% 1,000 ML 100 MEQ IV CONT (13:33)
[2024-10-21] MEDS: EPOETIN ALFA-EPBX 10,000 UNITS/ML VIAL 10000 UNITS SUB-Q (13:37)
--- NOTE | 2024-10-21 14:28 | P.PNNP_ITS ---
Progress Note: A&P Assessment and Plan (1) Acute kidney injury: Code(s): N17.9 - Acute kidney failure, unspecified Status: Acute Assessment and Plan: * slow improvement noted * as evidence of by admission and AM labs (on 10/17) * repeat labs done in ER (10/17 at 1:50am was likely a lab error) * suspect multifactorial etiology: * infection/early sepsis [UTI + cellulitis +/- osteomyelitis(?)] * pre-renal factors * use of NATHALIE-I prior to admission * use of diuretics prior to admission * other(?) * evaluation to date noted: * UA suggests infection * urine eosinophils negative * urine electrolytes prerenal (FeUrea) * moderate proteinuria * CPK mildy elevated but not enough to affect kidney function * renal ultrasound c/w CKD * on bicarb fluids * follow trend of repeat labs and UOP (2) Stage 4 chronic kidney disease: Code(s): N18.4 - Chronic kidney disease, stage 4 (severe) Status: Acute Assessment and Plan: * per patient, GFR has fluctuated to extremes * per outpatient labs done at [facility] (by verbal report): * 09/07/24 - creatinine 3.01mg/dl (GFR 20) * 08/03/24 - creatinine 2.44mg/dl (GFR 26) * presumably due to hypertension, CHF(?), vascular disease, and age-related change * follows with Dr. Arian Gleason for management of his chronic kidney disease (3) Hyperkalemia: Code(s): E87.5 - Hyperkalemia Status: Acute Assessment and Plan: * resolved * due to KURTIS, NATHALIE-I use, and acidosis * s/p medical management * follow trend of repeat K+ (4) Metabolic acidosis: Code(s): E87.20 - Acidosis, unspecified Status: Acute Assessment and Plan: * improving * acute on chronic * on outpatient sodium bicarbonate * acute worsening secondary to KURTIS and IVF resuscitation * added bicarbonate to IVFs * remains on oral sodium bicarbonate * follow CO2 levels (5) Cellulitis of both lower extremities: Code(s): L03.115 - Cellulitis of right lower limb; L03.116 - Cellulitis of left lower limb Status: Acute Assessment and Plan: * as noted on presentation * complicated by multiple skin wounds/defects/erosions * possible osteomyelitis(?) * CT of bilateral lower extremities noted: * skin defect over the right second toe, with possible bone exposure, without focal erosion * skin defect over the left second PIP joint, with suggestion of early erosions on either side of the joint concerning for infection with joint space involvement * skin defect over the left third DIP joint, with early erosion concerning for infection in the third middle phalanx and possible DIP joint involvement * skin defects with possible exposure of bone at the distal ends of the left second middle phalanx and left third proximal phalanx, without definite erosion * dermal thickening and subcutaneous edema in the bilateral feet and lower legs, correlate for clinical findings of cellulitis * no definite fluid collection is identified, however this determination is limited without contrast * Surgery recommendations noted * follow culture data * local wound care * on antibiotics (6) UTI (urinary tract infection): Qualifiers: Hematuria presence: with hematuria Urinary tract infection type: acute cystitis Qualified Code(s): N30.01 - Acute cystitis with hematuria Code(s): N39.0 - Urinary tract infection, site not specified Status: Acute Assessment and Plan: * as suggested by admission UA * follow culture data - gram negative bacilli noted * on antibiotics (7) Anemia: Code(s): D64.9 - Anemia, unspecified Status: Acute Assessment and Plan: * due to KURTIS, CKD, and acute illness * anemia studies noted: * evidence of iron deficiency * although not a candidate for IV iron given acute infection * empiric MURRAY while hospitalized * follow trend of H/H (8) Generalized weakness: Code(s): R53.1 - Weakness Status: Acute Assessment and Plan: * s/p fall prior to admission * suspect due to acute illness (infection, KURTIS, hyperkalemia, acidosis...etc) * PT/OT as tolerated Would not be opposed to discharge tomorrow if renal function continues to improve and is otherwise medically stable; he can follow-up with Dr. Gleason for ongoing management of his chronic kidney disease. Will continue to follow. L Subjective Date/time seen: 10/21/24 14:28 Interval history: Follow-up for acute kidney injury/acute renal failure on chronic kidney disease. No apparent distress noted at the time of my visit; renal function/creatinine continues to slowly improve with interventions/therapy to date; pain control seems reasonable; issues with relative hypotension noted so BP medications on hold; sitting up in chair napping at the time of my visit. Exam 2 Narrative: General: elderly but WD/WN male in NAD Heart: normal S1 and S2; no rub Lungs: clear anteriorly Abdomen: soft, nontender, nondistended, positive bowel sounds Extremities: no cyanosis or clubbing; reduced erythema present Skin: bilateral toe ulcerations/wounds Objective Data Vital Signs Vital Signs: Vital Signs Temp Pulse Resp BP Pulse Ox O2 Del Method 10/21/24 14:22 96/40 L 10/21/24 14:02 96/40 L 10/21/24 13:59 98.3 F 60 16 94/39 L 97 10/21/24 12:00 60 10/21/24 09:48 60 10/21/24 08:00 60 10/21/24 08:00 Room Air 10/21/24 05:16 120/42 L 10/21/24 05:00 98.2 F 60 20 128/36 L 95 10/21/24 04:00 60 10/21/24 00:00 60 10/20/24 20:12 97.6 F 60 20 139/50 L 98 10/20/24 20:00 60 10/20/24 20:00 Room Air 10/20/24 19:58 60 Intake/Output Intake/Output: Intake & Output 10/18/24 10/19/24 10/20/24 10/21/24 23:59 23:59 23:59 23:59 Intake Total 1725 3390 2769 742 Output Total 550 950 625 350 Balance 1175 2440 2144 392 Meds/Results Medications: Active Medications Generic Name Dose Route Start Last Admin Trade Name Freq PRN Reason Stop Dose Admin Acetaminophen 650 mg 10/17/24 03:42 10/20/24 05:56 Acetaminophen 325 Mg Tablet PO 650 mg Q4H PRN Administration Mild Pain (1-3) or Fever Ciprofloxacin 500 mg 10/19/24 21:00 10/20/24 19:57 Ciprofloxacin 500 Mg Tab PO 500 mg QHS ATNO Administration Dextrose 12.5 gm 10/16/24 22:30 10/17/24 02:00 Dextrose 50% 25 Gm/50 Ml Syringe IV PUSH 12.5 gm PRN PRN Administration Hypoglycemia Protocol Doxycycline Hyclate 100 mg 10/19/24 21:00 10/21/24 09:48 Doxycycline Hyclate 100 Mg Tablet PO 100 mg Q12HR TANO Administration Epoetin Darren-epbx 10,000 units 10/21/24 09:00 10/21/24 13:37 Epoetin Darren-Epbx 10,000 Units/Ml Vial SUB-Q 10,000 units MOWEFR@09 TANO Administration Gabapentin 100 mg 10/18/24 09:00 10/21/24 09:48 Gabapentin 100 Mg Capsule PO 100 mg Q12HR TANO Administration Glucagon 1 mg 10/16/24 22:30 Glucagon For Inj 1 Mg Vial IM PRN PRN Hypoglycemia Protocol Glucose 15 gm 10/16/24 22:30 Glucose Oral Gel 15 Gm Of Glucse In 37.5 Gm Tube PO PRN PRN Hypoglycemia Protocol Heparin Sodium (Porcine) 5,000 units 10/19/24 21:00 10/21/24 09:47 Heparin Sodium 5,000 Units/Ml Vial SUB-Q 5,000 units Q12HR TANO Administration Hydralazine HCl 50 mg 10/17/24 09:00 10/21/24 13:39 Hydralazine Hcl 50 Mg Tablet PO Not Given Q8HR TANO Dextrose 1,000 mls @ 100 mls/hr 10/16/24 22:30 Dextrose 5% 1,000 Ml IVPB PRN PRN Hypoglycemia Protocol Sodium Bicarbonate 75 meq/ 1,075 mls @ 100 mls/hr 10/21/24 13:00 10/21/24 13:33 Sodium Chloride IV CONT 100 mls/hr .[id number] TANO Administration Metoprolol Tartrate 50 mg 10/17/24 09:00 10/21/24 09:48 Metoprolol Tartrate 50 Mg Tab PO 50 mg Q12H TANO Administration Metronidazole 500 mg 10/19/24 14:00 10/21/24 13:37 Metronidazole 500 Mg Tablet PO 500 mg Q8HR TANO Administration Morphine Sulfate 4 mg 10/17/24 03:42 Morphine Sulfate (*Crx) 4 Mg/Ml Inj IV PUSH Q2H PRN Pain Rated 7-10 Nifedipine 60 mg 10/17/24 09:00 10/21/24 09:48 Nifedipine 30 Mg Tab.Er.24 PO 60 mg DAILY TANO Administration Ondansetron HCl 4 mg 10/17/24 03:42 10/21/24 09:47 Ondansetron Inj 4 Mg/2 Ml Vial IV PUSH 4 mg Q4H PRN Administration Nausea Oxycodone/Acetaminophen 1 tablet 10/17/24 11:42 10/19/24 09:08 Oxycodone/Acetaminophen (*Crx) 5-325 Mg Tablet PO 1 tablet Q4H PRN Administration Pain Rated 7-10 Ropinirole HCl 1 mg 10/17/24 21:00 10/20/24 19:58 Ropinirole Hcl 1 Mg Tablet PO 1 mg HS TANO Administration Sevelamer Carbonate 800 mg 10/17/24 12:00 10/21/24 16:40 Sevelamer Carbonate 800 Mg Tablet PO 800 mg TIDWM TANO Administration Sodium Bicarbonate 1,300 mg 10/17/24 09:00 10/21/24 16:40 Sodium Bicarbonate Tab 650 Mg Tablet PO 1,300 mg BID TANO Administration Radiology Results: ITS Impressions Lower Extremity CT 10/16/24 23:39 IMPRESSION: Skin defect over the right second toe, with possible bone exposure, without focal erosion. Skin defect over the left second PIP joint, with suggestion of early erosions on either side of the joint concerning for infection with joint space involvement. Skin defect over the left third DIP joint, with early erosion concerning for infection in the third middle phalanx and possible DIP joint involvement. Skin defects with possible exposure of bone at the distal ends of the left second middle phalanx and left third proximal phalanx, without definite erosion. Dermal thickening and subcutaneous edema in the bilateral feet and lower legs, correlate for clinical findings of cellulitis. No definite fluid collection is identified, however this determination is limited without contrast. Consider MRI of the feet without and with contrast for further evaluation. Lower Extremity CT 10/16/24 23:39 IMPRESSION: Skin defect over the right second toe, with possible bone exposure, without focal erosion. Skin defect over the left second PIP joint, with suggestion of early erosions on either side of the joint concerning for infection with joint space involvement. Skin defect over the left third DIP joint, with early erosion concerning for infection in the third middle phalanx and possible DIP joint involvement. Skin defects with possible exposure of bone at the distal ends of the left second middle phalanx and left third proximal phalanx, without definite erosion. Dermal thickening and subcutaneous edema in the bilateral feet and lower legs, correlate for clinical findings of cellulitis. No definite fluid collection is identified, however this determination is limited without contrast. Consider MRI of the feet without and with contrast for further evaluation. Renal Ultrasound 10/17/24 19:48 IMPRESSION: Bilateral cortical scarring. Mild right pelviectasis. Simple left renal cyst. Chest X-Ray 10/18/24 07:48 IMPRESSION: 1. Mild but increasing opacities in the left lower lung zone consistent with small left pleural effusion and worsening atelectasis, pneumonia, asymmetric mild pulmonary edema or some combination thereof. 2. Borderline heart size. Ankle Brachial Index 10/19/24 06:09 IMPRESSION: 1. Normal ankle-brachial indices. Labs Labs: Laboratory Tests 10/21/24 04:17 10/21/24 04:17 Calcium 8.8 Phosphorus 4.3 Magnesium 1.4 L Albumin 2.7 L Microbiology 10/17/24 03:30 Urine Clean Catch - Preliminary Gram negative bacilli isolated
--- NOTE | 2024-10-21 14:44 | PM.IMPN ---
Progress Note: A&P Assessment and Plan (1) Acute renal failure: Qualifiers: Acute renal failure type: unspecified Qualified Code(s): N17.9 - Acute kidney failure, unspecified Code(s): N17.9 - Acute kidney failure, unspecified Status: Acute (2) Stage 4 chronic kidney disease: Code(s): N18.4 - Chronic kidney disease, stage 4 (severe) Status: Acute (3) Hyperkalemia: Code(s): E87.5 - Hyperkalemia Status: Acute (4) Cellulitis of both lower extremities: Code(s): L03.115 - Cellulitis of right lower limb; L03.116 - Cellulitis of left lower limb Status: Acute (5) Osteomyelitis of toe: Code(s): M86.9 - Osteomyelitis, unspecified Status: Acute (6) Dry gangrene: Code(s): I96 - Gangrene, not elsewhere classified Status: Acute (7) Infestation, maggots: Code(s): B87.9 - Myiasis, unspecified Status: Acute (8) Generalized weakness: Code(s): R53.1 - Weakness Status: Acute (9) Anemia: Code(s): D64.9 - Anemia, unspecified Status: Acute (10) UTI (urinary tract infection): Qualifiers: Hematuria presence: with hematuria Urinary tract infection type: acute cystitis Qualified Code(s): N30.01 - Acute cystitis with hematuria Code(s): N39.0 - Urinary tract infection, site not specified Status: Acute (11) Sepsis without septic shock: Code(s): A41.9 - Sepsis, unspecified organism Status: Acute Plan 78-year-old male with history of CKD stage [address] Gleason, hypertension, chronic anemia, BPH presents to [facility] ER on 10/17/2024. Brought to the ED by EMS. He lives at home with his and daughter and they take care of him. He reports he fell off the toilet and had difficulty getting up off the ground. Reports being weak. Says he has wounds to his feet and toes for a month now. Maggots were found in his toes. Exposed bone. BUN on admission 75, serum creatinine 5.61. Tachypneic. [facility] reports serum creatinine in July to be 2.[address] of bilateral lower extremities showed skin defects, erosion, bone exposure. Cultures were taken, broad-spectrum antibiotics started. General surgery and nephrology consulted. He had hyperkalemia and he was given IV fluids. ----- Sepsis without shock with end-organ damage as evidence by osteomyelitis, tachypnea and leukocytosis, and acute renal failure present on admission. The maggots were cleaned out. General surgery consultation completed. Obvious evidence of osteomyelitis dry gangrene. At this time toes are viable, however general surgery continues to follow. Advised wound care/wound consultation. Cefepime metronidazole and vancomycin started on admission 10/17/2024, no fever, no active drainage or cellulitis, no pain, sepsis parameters have improved, leukocytosis greatly improving. Changed to p.o. regimen with ciprofloxacin 500 mg p.o. q.h.s., Flagyl 500 mg p.o. q.8 hour, doxycycline 100 mg p.o. b.i.d. 10/19/2024. ABIs normal. Continue to monitor urine and blood cultures. Nephrology continues to follow for acute renal failure. He is producing urine. Serum creatinine slowly improving. Potassium elevated at 5.5. Was given 2 doses of Lokelma 10 mg p.o., hyperkalemia has resolved. Continue sodium bicarbonate set D5 mEq in sodium chloride at 100 cc/hour. Continue sodium bicarbonate tabs 1300 mg p.o. b.i.d.. Continue Renvela. Anemia, multifactorial. Stable. 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 b.i.d. on 10/18/2024. PT OT evaluations ongoing for weakness. 10/20/2024: Patient stable since p.o. antibiotics have been initiated. Continue present antibiotic management. He is making urine output, continued progressive improvement in his renal function. Nephrology still following. Hemoglobin 7.8, continue to trend daily. Received 21133 units Retacrit subQ x1 on 10/20/2024. Surgery recommendations have been noted. No plan for surgical intervention, patient wants to follow-up with wound care as opposed to the general surgery on discharge. 10/21/2024: Patient remained stable. From a surgical standpoint he is okay for discharge. Continue p.o. antibiotics. At this time his serum creatinine is decreasing, he is making urine. Continue to follow with Nephrology recommendations. He is having soft blood pressures, holding [employer] nifedipine, metoprolol, hydralazine. Patient wishes to be full code. Diabetic diet and renal dialysis diet. Start heparin 5000 units subcutaneous b.i.d. on 10/19/2024, hold on 10/21/2024 due to progressively decreasing hemoglobin. Hold SCDs/stockings due to bilateral lower extremity wounds. Subjective Date/time seen: 10/21/24 14:44 Interval history: No acute overnight events. Patient has no complaints. Review of Systems Review of Systems: All systems reviewed & are unremarkable except as noted in HPI and below (Subjective) Exam Const: General: comfortable and no acute distress Other: A&O x3 HENMT: Mouth: Yes moist mucous membranes Eyes: Pupils: Equal, round and reactive pupils present Neck: Neck: supple Resp: Effort & Inspection: normal respiratory effort Auscultation: clear to auscultation bilaterally Cardio: Rate: regular rate Rhythm: regular rhythm GI: Inspection: non-distended GI Palp: Yes Soft to palpation Extrem: Other: No active discharge from wounds. No tenderness to palpation or erythema. Chronic appearing thickening of skin Objective Data Vital Signs Vital Signs: Vital Signs - 24 hr 10/20/24 16:00 10/20/24 19:58 10/20/24 20:00 Temperature Pulse Rate 65 60 Respiratory Rate Blood Pressure Pulse Oximetry Oxygen Delivery Room Air 10/20/24 20:00 10/20/24 20:12 10/21/24 00:00 Temperature 97.6 F Pulse Rate 60 60 60 Respiratory Rate 20 Blood Pressure 139/50 L Pulse Oximetry 98 Oxygen Delivery 10/21/24 04:00 10/21/24 05:00 10/21/24 05:16 Temperature 98.2 F Pulse Rate 60 60 Respiratory Rate 20 Blood Pressure 128/36 L 120/42 L Pulse Oximetry 95 Oxygen Delivery 10/21/24 08:00 10/21/24 08:00 10/21/24 09:48 Temperature Pulse Rate 60 60 Respiratory Rate Blood Pressure Pulse Oximetry Oxygen Delivery Room Air 10/21/24 13:59 10/21/24 14:02 10/21/24 14:22 Temperature 98.3 F Pulse Rate 60 Respiratory Rate 16 Blood Pressure 94/39 L 96/40 L 96/40 L Pulse Oximetry 97 Oxygen Delivery Intake/Output Intake/Output: Intake & Output 10/18/24 10/19/24 10/20/24 10/21/24 23:59 23:59 23:59 23:59 Intake Total 1725 3390 2769 742 Output Total 550 950 625 350 Balance 1175 2440 2144 392 Meds/Results Medications: Active Medications Generic Name Dose Route Start Last Admin Trade Name Freq PRN Reason Stop Dose Admin Acetaminophen 650 mg 10/17/24 03:42 10/20/24 05:56 Acetaminophen 325 Mg Tablet PO 650 mg Q4H PRN Administration Mild Pain (1-3) or Fever Ciprofloxacin 500 mg 10/19/24 21:00 10/20/24 19:57 Ciprofloxacin 500 Mg Tab PO 500 mg QHS TANO Administration Dextrose 12.5 gm 10/16/24 22:30 10/17/24 02:00 Dextrose 50% 25 Gm/50 Ml Syringe IV PUSH 12.5 gm PRN PRN Administration Hypoglycemia Protocol Doxycycline Hyclate 100 mg 10/19/24 21:00 10/21/24 09:48 Doxycycline Hyclate 100 Mg Tablet PO 100 mg Q12HR TANO Administration Epoetin Darrne-epbx 10,000 units 10/21/24 09:00 10/21/24 13:37 Epoetin Darren-Epbx 10,000 Units/Ml Vial SUB-Q 10,000 units MOWEFR@09 TANO Administration Gabapentin 100 mg 10/18/24 09:00 10/21/24 09:48 Gabapentin 100 Mg Capsule PO 100 mg Q12HR TANO Administration Glucagon 1 mg 10/16/24 22:30 Glucagon For Inj 1 Mg Vial IM PRN PRN Hypoglycemia Protocol Glucose 15 gm 10/16/24 22:30 Glucose Oral Gel 15 Gm Of Glucse In 37.5 Gm Tube PO PRN PRN Hypoglycemia Protocol Heparin Sodium (Porcine) 5,000 units 10/19/24 21:00 10/21/24 09:47 Heparin Sodium 5,000 Units/Ml Vial SUB-Q 5,000 units Q12HR TANO Administration Hydralazine HCl 50 mg 10/17/24 09:00 10/21/24 13:39 Hydralazine Hcl 50 Mg Tablet PO Not Given Q8HR TANO Dextrose 1,000 mls @ 100 mls/hr 10/16/24 22:30 Dextrose 5% 1,000 Ml IVPB PRN PRN Hypoglycemia Protocol Sodium Bicarbonate 75 meq/ 1,075 mls @ 100 mls/hr 10/21/24 13:00 10/21/24 13:33 Sodium Chloride IV CONT 100 mls/hr .[id number] TANO Administration Metoprolol Tartrate 50 mg 10/17/24 09:00 10/21/24 09:48 Metoprolol Tartrate 50 Mg Tab PO 50 mg Q12H TANO Administration Metronidazole 500 mg 10/19/24 14:00 10/21/24 13:37 Metronidazole 500 Mg Tablet PO 500 mg Q8HR TANO Administration Morphine Sulfate 4 mg 10/17/24 03:42 Morphine Sulfate (*Crx) 4 Mg/Ml Inj IV PUSH Q2H PRN Pain Rated 7-10 Nifedipine 60 mg 10/17/24 09:00 10/21/24 09:48 Nifedipine 30 Mg Tab.Er.24 PO 60 mg DAILY TANO Administration Ondansetron HCl 4 mg 10/17/24 03:42 10/21/24 09:47 Ondansetron Inj 4 Mg/2 Ml Vial IV PUSH 4 mg Q4H PRN Administration Nausea Oxycodone/Acetaminophen 1 tablet 10/17/24 11:42 10/19/24 09:08 Oxycodone/Acetaminophen (*Crx) 5-325 Mg Tablet PO 1 tablet Q4H PRN Administration Pain Rated 7-10 Ropinirole HCl 1 mg 10/17/24 21:00 10/20/24 19:58 Ropinirole Hcl 1 Mg Tablet PO 1 mg HS TANO Administration Sevelamer Carbonate 800 mg 10/17/24 12:00 10/21/24 13:37 Sevelamer Carbonate 800 Mg Tablet PO 800 mg TIDWM TANO Administration Sodium Bicarbonate 1,300 mg 10/17/24 09:00 10/21/24 09:48 Sodium Bicarbonate Tab 650 Mg Tablet PO 1,300 mg BID TNAO Administration Radiology Results: ITS Impressions Lower Extremity CT 10/16/24 23:39 IMPRESSION: Skin defect over the right second toe, with possible bone exposure, without focal erosion. Skin defect over the left second PIP joint, with suggestion of early erosions on either side of the joint concerning for infection with joint space involvement. Skin defect over the left third DIP joint, with early erosion concerning for infection in the third middle phalanx and possible DIP joint involvement. Skin defects with possible exposure of bone at the distal ends of the left second middle phalanx and left third proximal phalanx, without definite erosion. Dermal thickening and subcutaneous edema in the bilateral feet and lower legs, correlate for clinical findings of cellulitis. No definite fluid collection is identified, however this determination is limited without contrast. Consider MRI of the feet without and with contrast for further evaluation. Lower Extremity CT 10/16/24 23:39 IMPRESSION: Skin defect over the right second toe, with possible bone exposure, without focal erosion. Skin defect over the left second PIP joint, with suggestion of early erosions on either side of the joint concerning for infection with joint space involvement. Skin defect over the left third DIP joint, with early erosion concerning for infection in the third middle phalanx and possible DIP joint involvement. Skin defects with possible exposure of bone at the distal ends of the left second middle phalanx and left third proximal phalanx, without definite erosion. Dermal thickening and subcutaneous edema in the bilateral feet and lower legs, correlate for clinical findings of cellulitis. No definite fluid collection is identified, however this determination is limited without contrast. Consider MRI of the feet without and with contrast for further evaluation. Renal Ultrasound 10/17/24 19:48 IMPRESSION: Bilateral cortical scarring. Mild right pelviectasis. Simple left renal cyst. Chest X-Ray 10/18/24 07:48 IMPRESSION: 1. Mild but increasing opacities in the left lower lung zone consistent with small left pleural effusion and worsening atelectasis, pneumonia, asymmetric mild pulmonary edema or some combination thereof. 2. Borderline heart size. Ankle Brachial Index 10/19/24 06:09 IMPRESSION: 1. Normal ankle-brachial indices. Labs Labs: Laboratory Results - last 24 hr 10/20/24 10/20/24 10/20/24 16:44 20:10 23:27 WBC RBC Hgb Hct MCV MCH MCHC RDW Plt Count MPV Immature Gran % (Auto) Neut % (Auto) Lymph % (Auto) [place] % (Auto) Eos % (Auto) Baso % (Auto) Lymph # (Auto) [place] # (Auto) Eos # (Auto) Baso # (Auto) Abs Immat Gran (auto) Absolute Neuts (auto) Absolute Nucleated RBC Nucleated RBC % Sodium Potassium Chloride Carbon Dioxide Anion Gap BUN Creatinine Estim Creat Clear Calc Estimated GFR Glucose POC Capillary Glucose 115 H 111 H 89 Calcium Phosphorus Magnesium Albumin 10/21/24 10/21/24 10/21/24 04:17 04:54 07:48 WBC 6.0 RBC 2.42 L Hgb 7.6 L Hct 24.7 L MCV 102.1 H MCH 31.4 MCHC 30.8 L RDW 13.1 Plt Count 215 MPV 11.3 H Immature Gran % (Auto) 1.5 H Neut % (Auto) 73.6 H Lymph % (Auto) 12.3 L [place] % (Auto) 11.1 H Eos % (Auto) 1.0 Baso % (Auto) 0.5 Lymph # (Auto) 0.74 L [place] # (Auto) 0.7 H Eos # (Auto) 0.1 Baso # (Auto) 0.0 Abs Immat Gran (auto) 0.09 H Absolute Neuts (auto) 4.4 Absolute Nucleated RBC 0.000 Nucleated RBC % 0.0 Sodium 138 Potassium 4.3 Chloride 111 H Carbon Dioxide 19 L Anion Gap 8 BUN 68 H Creatinine 3.49 H Estim Creat Clear Calc 21 Estimated GFR 17 L Glucose 88 POC Capillary Glucose 81 82 Calcium 8.8 Phosphorus 4.3 Magnesium 1.4 L Albumin 2.7 L 10/21/24 12:06 WBC RBC Hgb Hct MCV MCH MCHC RDW Plt Count MPV Immature Gran % (Auto) Neut % (Auto) Lymph % (Auto) [place] % (Auto) Eos % (Auto) Baso % (Auto) Lymph # (Auto) [place] # (Auto) Eos # (Auto) Baso # (Auto) Abs Immat Gran (auto) Absolute Neuts (auto) Absolute Nucleated RBC Nucleated RBC % Sodium Potassium Chloride Carbon Dioxide Anion Gap BUN Creatinine Estim Creat Clear Calc Estimated GFR Glucose POC Capillary Glucose 104 Calcium Phosphorus Magnesium Albumin
[2024-10-21] MEDS: CIPROFLOXACIN 500 MG TAB PO (20:26)
[2024-10-22 00:04] VITALS: PULSE 60
[2024-10-22] MEDS: SODIUM BICARBONATE 8.4% 75 MEQ in SODIUM CHLORIDE 0.45% 1,000 ML 100 MEQ IV CONT (00:19)
[2024-10-22 04:00] VITALS: PULSE 60
[2024-10-22 05:19] LABS: Hematocrit 24.6 % (42.0-52.0); Hemoglobin 7.4 g/dL (14.0-18.0); Immature Granulocyte Percent A 1.2 % (0-0.5); Lymphocytes Absolute Auto 0.85 K/mm3 (0.9-3.2); Mean Corpuscular HGB Conc 30.1 g/dl (32-36); Mean Corpuscular Hemoglobin 31.6 pg (26-34); Mean Corpuscular Volume 105.1 fl (80-100); Nucleated Red Blood Cells Absolute Auto 0.000 K/mm3 (0.0-0.012); Nucleated Red Blood Cells Perc 0.0 % (0.0-0.2); Platelet Count Result 211 k/mm3 (150-375); Red Blood Count 2.34 M/mm3 (4.6-6.20); White Blood Count 5.1 K/mm3 (4.5-10.0)
[2024-10-22 05:44] LABS: Albumin Level 2.6 g/dL (3.5-5.1); Anion Gap 5 mmol/L (4-12); Blood Urea Nitrogen 63 mg/dL (9-20); Calcium 8.4 mg/dL (8.4-10.2); Carbon Dioxide 24 mmol/L (22-30); Chloride 105 mmol/L (98-107); Estimated CRCL calculation 24 ml/min; Estimated Glomerular Filt Rate 20; Glucose 84 mg/dL (65-110); Magnesium 1.3 mg/dL (1.6-2.3); Potassium 4.3 mmol/L (3.4-5.0); Sodium 134 mmol/L (137-145)
[2024-10-22 06:00] VITALS: BP 132/49; PULSE 60; RESP 16; TEMP 36.7; O2SAT 90
[2024-10-22 08:00] VITALS: PULSE 60
[2024-10-22] MEDS: SODIUM BICARBONATE TAB 650 MG TABLET 1300 MG PO (09:04)
[2024-10-22] MEDS: SEVELAMER CARBONATE 800 MG TABLET PO ×2 (09:04→11:54)
[2024-10-22] MEDS: GABAPENTIN 100 MG CAPSULE PO (09:05)
[2024-10-22] MEDS: DOXYCYCLINE HYCLATE 100 MG TABLET PO (09:05)
--- NOTE | 2024-10-22 09:47 | P.DS_ITS ---
DS: Admitting Diagnosis Discharge Date 10/22/2024 Admitting Diagnosis Acute on chronic renal failure DS: Discharge Diagnosis Discharge Diagnosis (1) Acute renal failure: Qualifiers: Acute renal failure type: unspecified Qualified Code(s): N17.9 - Acute kidney failure, unspecified Code(s): N17.9 - Acute kidney failure, unspecified Status: Acute DS: Summary Hospital Course Hospital Course: 78-year-old male with history of CKD stage [address] Gleason, hypertension, chronic anemia, BPH presents to [facility] ER on 10/17/2024. Brought to the ED by EMS. He lives at home with his and daughter and they take care of him. He reports he fell off the toilet and had difficulty getting up off the ground. Reports being weak. Says he has wounds to his feet and toes for a month now. Maggots were found in his toes. Exposed bone. BUN on admission 75, serum creatinine 5.61. Tachypneic. [facility] reports serum creatinine in July to be 2.[address] CT of bilateral lower extremities showed skin defects, erosion, bone exposure. Cultures were taken, broad-spectrum antibiotics started. General surgery and nephrology consulted. He had hyperkalemia and he was given IV fluids. ----- The patient was seen by General surgery for his toes and nephrology for his acute kidney failure. He is discharged on 10/22/2024 in stable and improved condition to [facility] for rehab and wound care. Plan is to eventually return home. Patient was full code during his admission. He had sepsis without shock with end-organ damage as evidence by osteomyelitis, tachypnea and leukocytosis with acute renal failure which was present on admission. This resolved. The maggots were cleaned out. Obvious evidence of osteomyelitis dry gangrene. No cellulitis or wet gangrene, decision made between surgery and pt to forgo surgery and pursue conservative management. Cefepime metronidazole and vancomycin transition to ciprofloxacin 500 mg p.o. q.h.s., Flagyl 500 mg p.o. q.8 hours, doxycycline 100 mg p.o. b.i.d. to complete a 6 week course ending on November 28. Blood cultures no growth after 48 hours. ABIs normal Urine culture final growth with Enterococcus faecalis and Klebsiella pneumonia. Acute renal failure resolving. Serum creatinine near his baseline. He has good urine output. Blood pressure medications withheld. He is to follow-up with Nephrology and primary care for further monitoring and management. Anemia stable. Time Spent with Patient Time attestation: Total time spent providing and/or coordinating discharge services: Time spent: Greater than 30 minutes Exam Const: General: comfortable and no acute distress Other: A&O x3 HENMT: Mouth: Yes moist mucous membranes Eyes: Pupils: Equal, round and reactive pupils present Neck: Neck: supple Resp: Effort & Inspection: normal respiratory effort Auscultation: clear to auscultation bilaterally Cardio: Rate: regular rate Rhythm: regular rhythm GI: Inspection: non-distended GI Palp: Yes Soft to palpation Extrem: Other: No active discharge from wounds. No tenderness to palpation or erythema. lipodermatosclerosis. Dry gangrene of multiple toes on both of the feet with exposed bones. No cellulitis. DS: Data Data Completed and Pending Labs on day of discharge: Labs from last 24 hours 10/22/24 10/22/24 10/21/24 07:56 04:25 19:43 WBC 5.1 RBC 2.34 L Hgb 7.4 L Hct 24.6 L MCV 105.1 H MCH 31.6 MCHC 30.1 L RDW 13.2 Plt Count 211 MPV 11.1 H Immature Gran % (Auto) 1.2 H Neut % (Auto) 66.7 Lymph % (Auto) 16.8 L [place] % (Auto) 13.5 H Eos % (Auto) 1.4 Baso % (Auto) 0.4 Lymph # (Auto) 0.85 L [place] # (Auto) 0.7 H Eos # (Auto) 0.1 Baso # (Auto) 0.0 Abs Immat Gran (auto) 0.06 H Absolute Neuts (auto) 3.4 Absolute Nucleated RBC 0.000 Nucleated RBC % 0.0 Sodium 134 L Potassium 4.3 Chloride 105 Carbon Dioxide 24 Anion Gap 5 BUN 63 H Creatinine 3.05 H Estim Creat Clear Calc 24 Estimated GFR 20 L Glucose 84 POC Capillary Glucose 93 114 H Calcium 8.4 Phosphorus 3.8 Magnesium 1.3 L Albumin 2.6 L 10/21/24 10/21/24 16:54 12:06 WBC RBC Hgb Hct MCV MCH MCHC RDW Plt Count MPV Immature Gran % (Auto) Neut % (Auto) Lymph % (Auto) [place] % (Auto) Eos % (Auto) Baso % (Auto) Lymph # (Auto) [place] # (Auto) Eos # (Auto) Baso # (Auto) Abs Immat Gran (auto) Absolute Neuts (auto) Absolute Nucleated RBC Nucleated RBC % Sodium Potassium Chloride Carbon Dioxide Anion Gap BUN Creatinine Estim Creat Clear Calc Estimated GFR Glucose POC Capillary Glucose 98 104 Calcium Phosphorus Magnesium Albumin Preliminary micro results at discharge 10/16/24 22:48 Blood Culture - Preliminary Blood 10/16/24 21:34 Blood Culture - Preliminary Blood Discharge Plan Discharge Attending physician on discharge: Laura Kelly Consulting providers: Mauricio Hunt Discharging Clinician: Laura Kelly Patient Disposition: SNF Activity: july shower Diet: as tolerated Discharge Instructions: Wash bilateral lower legs and feet with soap and water daily. [place] all toes with betadine, Apply Silver gel to bilateral lower legs, cover leg ulcers and toes with Vaseline gauze, ABD pads and wrap with kerlex. He is to follow-up with wound care. Patient Language: French Stand Alone Forms: General Discharge Information Follow-up/Referrals: Neeru,Venu Holm MD [Primary Care Provider] - 10/27/24 Victorino,Arian Ornelas MD [Non-Staff] - 10/26/24 Discharge Medications: New ciprofloxacin HCl 500 mg Tablet 500 mg PO QHS Qty: 0 0RF doxycycline hyclate 100 mg Tablet 100 mg PO Q12HR Qty: 0 0RF metronidazole 500 mg Tablet 500 mg PO Q8HR Qty: 0 0RF Continued allopurinol 100 mg tablet 100 mg PO Q8H calcitriol 0.25 mcg capsule 0.25 mcg PO TID ergocalciferol (vitamin D2) 1,250 mcg (50,000 unit) capsule 1,250 mcg PO WEEKLY Rx Instructions: saturday gabapentin 300 mg capsule 300 mg PO Q12H ropinirole 1 mg tablet 1 mg PO HS sevelamer carbonate 800 mg tablet 800 mg PO TIDWM sodium bicarbonate 650 mg tablet 1,300 mg PO BID tamsulosin 0.4 mg capsule 0.4 mg PO Q24H Held furosemide 20 mg tablet 20 mg PO DAILY Hold Instructions: Follow-up with [facility] metoprolol tartrate 50 mg tablet 50 mg PO Q12H Hold Instructions: Follow-up with box [facility] lisinopril 20 mg tablet 20 mg PO Q12H Hold Instructions: Follow-up with box toe [facility] nifedipine 60 mg tablet extended release 60 mg PO DAILY Hold Instructions: Follow-up with box toe [facility] Date of admission: 10/17/24 07:01 Primary Care Provider: Inez,Venu Holm Admitting Provider: Laura Kelly Attending physician on admission: Laura Kelly Condition: Stable Hospitalist MIPS Heart Failure (Exclusion) Patient has history of Heart Transplant or Left Ventricular Assistive Device?: No IF YES, STOP HERE Heart Failure (Qualifier) Patient has current or prior documentation of LVEF less than or equal to 40%, or mod/servere depressed LVSF?: No IF NO, STOP HERE
[2024-10-22 12:00] VITALS: PULSE 60
[2024-10-22 14:00] VITALS: BP 122/59; PULSE 62; RESP 16; TEMP 36.6; O2SAT 98
== END 2024-10-22 16:30 | DRG 872 ==
LOC: ANHED 10-17 03:55 → ANH2MED 10-17 05:27 → ANH3MEDSUR 10-17 05:27
PROVIDERS: Hospitalist; Internal Medicine Nephrology; Admitting Provider General Practice; Emergency Provider Physician Assistant; PCP Internal Medicine; Visit Provider General Practice
DX: A41.9 Sepsis, unspecified organism (principal); I96 Gangrene, not elsewhere classified; L97.526 Non-pressure chronic ulcer of other part of left foot with bone involvement without evidence of necrosis; L97.516 Non-pressure chronic ulcer of other part of right foot with bone involvement without evidence of necrosis; L03.116 Cellulitis of left lower limb; L03.115 Cellulitis of right lower limb; M86.9 Osteomyelitis, unspecified; N17.9 Acute kidney failure, unspecified; N39.0 Urinary tract infection, site not specified; N18.4 Chronic kidney disease, stage 4 (severe); E87.20 Acidosis, unspecified; I12.9 Hypertensive chronic kidney disease with stage 1 through stage 4 chronic kidney disease, or unspecified chronic kidney disease; E87.5 Hyperkalemia; E55.9 Vitamin D deficiency, unspecified; E79.0 Hyperuricemia without signs of inflammatory arthritis and tophaceous disease; D64.9 Anemia, unspecified; B87.9 Myiasis, unspecified; N40.0 Benign prostatic hyperplasia without lower urinary tract symptoms; G20.A1 Parkinson's disease without dyskinesia, without mention of fluctuations; M19.90 Unspecified osteoarthritis, unspecified site; Z87.891 Personal history of nicotine dependence; Z95.0 Presence of cardiac pacemaker
CPT/HCPCS: 36415; 71045; 73700; 76775; 80048; 80053; 80069; 80202; 81001; 82077; 82550; 82570; 82728; 82948; 83036; 83540; 83550; 83605; 83735; 84100; 84156; 84300; 84443; 84540; 85025; 85046; 85610; 85652; 85730; 85999; 86140; 87040; 87086; 93005; 93922; 96365; 96366; 96367; 96375; 97110; 97162; 97166; 97530; 97535; 99285; A9270; C8929; G0378; J0612; J0692; J1644; J1815; J1836; J2405; J3373; J3475; J7030; Q5105; Q9957